=== PATIENT | female | born 1980 ===

== ENCOUNTER 2020-05-17 15:20 | Outpatient (REF) | payer OTHER, SELFPAY | END 2020-05-17 15:21 | disposition home or self-care (01) | LOC: HO.LNP 15:20 | PROVIDERS: Visit Provider Internal Medicine | DX: H60.91 Unspecified otitis externa, right ear (principal) | CPT/HCPCS: 87071; 87107; 87205 ==

== ENCOUNTER 2020-06-17 07:54 | Outpatient (REF) | payer OTHER, SELFPAY | END 2020-06-17 07:55 | disposition home or self-care (01) | LOC: HO.LAB 07:54 | PROVIDERS: PCP Internal Medicine; Visit Provider Internal Medicine | DX: Z20.828 Contact with and (suspected) exposure to other viral communicable diseases (principal) | CPT/HCPCS: C9803; U0003 ==

== ENCOUNTER 2021-07-07 10:23 | Outpatient (REF) | payer OTHER, SELFPAY | END 2021-07-07 10:24 | disposition home or self-care (01) | LOC: HO.HMGCLDS 10:23 | PROVIDERS: Visit Provider Internal Medicine | DX: Z20.822 Contact with and (suspected) exposure to COVID-19 (principal) | CPT/HCPCS: C9803; U0003; U0005 ==

== ENCOUNTER 2023-03-04 10:09 | Outpatient (AMB) | payer OTHER, SELFPAY ==
[2023-03-04 10:20] VITALS: BP 134/72; PULSE 80; O2SAT 98; BMI 45.0
--- NOTE | 2023-03-04 10:20 | MHC.PC.OV ---
Vital Signs 03/04/23 10:20 Height 5 ft 3 in Weight 254 lb BMI 45.0 BP 134/72 Blood Pressure Location Lt brachial Position Sitting Pulse 80 Pulse Source Pulse Oximeter Pulse Oximetry (%) 98 Oxygen Delivery Method Room Air Intake Visit Reasons: Right Knee Pain Allergies No Known Allergies [No Known Allergies*] Allergy (Verified 03/04/23 10:21) Medication List - Last Reconciled 03/04/23 by Iesha East MD albuterol sulfate 90 mcg/actuation 2 puffs inhalation Q6H PRN cetirizine (Zyrtec) 10 mg PO DAILY PRN fluticasone propionate 110 mcg/actuation 2 puffs inhalation BID ibuprofen 800 mg PO Q8H PRN 30 days [id number]-wun-iron fm-FA-vitK 18 mg-400 mcg- 25 mcg (One-A-Day Women's Complete(with vit K)) tabs PO Tobacco use date assessed: 03/04/23 Dental Screening Dental Screen Date: 03/04/23 Did you have a dental visit in the last 12 months?: Yes Did you have a dental problem in the last 6 months where you did not have access to dental care?: No Was dental information given to patient?: Patient has dentist HPI Right Knee Pain HPI Details 42-year-old Obese female with asthma and GERD last seen in September 2021 for physical exam. Patient was advised to follow-up today. Mammogram due. Patient complains of right knee pain denies any fall or trauma but when she is walking it causes pain on the lateral superior leg is but denies any swelling or redness patient states occasionally giving way. [facility] Medical History (Updated 03/04/23 @ 10:58 by Iesha East MD) Asthma GERD (gastroesophageal reflux disease) Hemorrhoids History of pilonidal cyst Surgical History (Updated 08/31/21 @ 14:54 by Iesha East MD) H/O tubal ligation History of excision of pilonidal cyst History of hernia surgery Previous section S/P dilatation and curettage Family History (Updated 03/04/23 @ 10:22 by Narcisa Mariano CMA) Father Chronic mental illness Mother Chronic mental illness Maternal Grandfather Renal cell cancer Social History (Updated 09/03/21 @ 13:34 by Iesha East MD) Housing: House Alcohol intake: never Patient Tobacco Use Status: Never used Tobacco e-Cigarette/Vaping Use: Never Used Second Hand Smoke Exposure: No Current occupational status: employed Cognitive needs: No Hearing needs: No Vision needs: No Questionnaire PHQ-9 Over the last 2 weeks, how often have you been bothered by any of the following problems? 1. Little interest or pleasure in doing things: not at all 2. Feeling down, depressed, or hopeless: not at all 3. Trouble falling or staying asleep, or sleeping too much: not at all 4. Feeling tired or having little energy: not at all 5. Poor appetite or overeating: not at all 6. Feeling bad about yourself - or that you are a failure or have let yourself or your family down: not at all 7. Trouble concentrating on things, such as reading the newspaper or watching television: not at all 8. Moving or speaking so slowly that other people could have noticed. Or the opposite - being so fidgety or restless that you have been moving around a lot more than usual: not at all 9. Thoughts that you would be better off or of hurting yourself in some way: not at all Total score: 0 Depression Screening Interpretation: Negative Source: Developed by Drs. Monster Barriga, Brenna Diaz, Milton Hopkins and colleagues, with an educational zi from [employer]. Thrive Questionnaire Date Thrive assessed: 03/04/23 I am a: Patient What is your living situation today?: I have a steady place to live Within the past 12 months, did the food you bought not last and you didn't have the money to get more?: Never true Within the past 12 months, did you worry whether your food would run out before you got money to buy more?: Never true Do you have trouble paying for medicines?: No Do you have trouble getting transportation to medical appointments?: No Do you have trouble paying your heating and electricity bill?: No Do you have trouble taking care of your child, family member or friend?: No Do you have trouble with day-to-day activities such as bathing, preparing meals, shopping, managing finances, etc.?: No Are you currently unemployed and looking for a job?: No Are you interested in more education?: No Currently or been in a relationship where the following occur: no concerns reported AUDIT C Alcohol Use Questionnaire (AUDIT-C) 1. How often do you have a drink containing alcohol?: Monthly or less 2. How many drinks containing alcohol do you have on a typical day when you are drinking?: 1 or 2 3. How often do you have six or more drinks on one occasion?: Never Total Score: 1 ANIKA-7 AMB Questionnaire ANIKA-7 Date ANIKA - 7 assessed: 03/04/23 Feeling nervous, anxious, or on edge: 0 = Not at all Not being able to stop or control worryin = Not at all Worrying too much about different things: 0 = Not at all Trouble relaxin = Not at all Being so restless that it is hard to sit still: 0 = Not at all Becoming easily annoyed or irritable: 0 = Not at all Feeling afraid as if something awful might happen: 0 = Not at all Total ANIKA-7 score (0-4 normal; 5-9 mild; 10-14 moderate; 15-21 severe): 0 Source: Developed by Drs. Monster Barriga, Brenna Diaz, Milton Hopkins and colleagues, with an educational zi from [employer]. Physical exam (Primary Care) Vital Signs: Last Vital Signs Pulse 80 03/04/23 10:20 BP 134/72 03/04/23 10:20 Pulse Ox 98 03/04/23 10:20 Oxygen Delivery Method Room Air 03/04/23 10:20 Care Plan Goal for BP management: Right Knee exam no anterior knee pain mild tenderness on right lateral no warmth mild tenderness on the medial area also no pains on the posterior knee BMI result Body Mass Index 45.0 Tobacco/Smoking Status: Tobacco use Status Tobacco use date assessed 03/04/23 03/04/23 10:22 Patient Tobacco Use Status Never used Tobacco 03/04/23 10:22 e-Cigarette/Vaping Use Never Used 03/04/23 10:22 PHQ-9: PHQ-9 Score PHQ-9: Total score 0 03/04/23 10:40 Depression Screening Interpretation: Negative Thrive Assessment: Date of Thrive Assessment Date Thrive assessed 03/04/23 03/04/23 10:22 Currently or been in a relationship where the following occur: no concerns reported Const General: alert; No acute distress Eyes Conjunctivae: conjunctivae normal Resp Auscultation: clear to auscultation bilaterally Cardio Rate: regular rate Rhythm: regular rhythm GI Inspection: Yes normal to inspection Extrem General: Yes normal to inspection and No edema Assessment and Plan Assessment & Plan (1) Obesity: Code(s): E66.9 - Obesity, unspecified Plan: Diet and exercise (2) GERD (gastroesophageal reflux disease): Code(s): K21.9 - Gastro-esophageal reflux disease without esophagitis Plan: Avoid the foods that causes that usually spicy foods, tomato products, juices, coffee, soda and foods that your sensitive to. After eating do not lie down, allow 3-4 hours before in lie down. And keep the head of bed above 30 degrees to avoid the acid from going up. (3) Asthma: Code(s): J45.909 - Unspecified asthma, uncomplicated Plan: Continue with the inhaler, montelukast and Flovent (4) Breast cancer screening by mammogram: Code(s): Z12.31 - Encounter for screening mammogram for malignant neoplasm of breast (5) Knee pain, right: Code(s): M25.561 - Pain in right knee Orders: Orders MM tomosynthesis screening BI Today Z12.31 - Encounter for screening mammogram for malignant neoplasm of breast XR knee standing BI Today M25.561 - Pain in right knee Complete Blood Count Auto Diff Today K21.9 - Gastro-esophageal reflux disease without esophagitis Comprehensive Met. Panel Today K21.9 - Gastro-esophageal reflux disease without esophagitis Free T4 (Free Thyroxine) Today K21.9 - Gastro-esophageal reflux disease without esophagitis Thyroid Stimulating Hormone Today K21.9 - Gastro-esophageal reflux disease without esophagitis Lipid Panel Today E78.00 - Pure hypercholesterolemia, unspecified, K21.9 - Gastro-esophageal reflux disease without esophagitis Vitamin B12 and Folate Today K21.9 - Gastro-esophageal reflux disease without esophagitis Vitamin D 25-OH Total Today K21.9 - Gastro-esophageal reflux disease without esophagitis Medications: New diclofenac sodium 1% (Arthritis Pain (diclofenac)) apply to single knee, ankle, foot; for foot includes sole/toes/top of foot 4 grams topical QID 100 grams 3RF M25.561 - Pain in right knee Discontinued montelukast Discontinued Reason: Change Referral Type 10 mg PO BEDTIME 30 days 30 tabs 5RF J45.909 - Unspecified asthma, uncomplicated Coding Level of Care Code Est Pt Level 4 (78227) Diagnoses Obesity E66.9 GERD (gastroesophageal reflux disease) K21.9 Asthma J45.909 Breast cancer screening by mammogram Z12.31 Knee pain, right M25.561
== END 2023-03-04 11:05 | disposition home or self-care (01) ==
PROVIDERS: PCP Internal Medicine; Visit Provider Internal Medicine
DX: K21.9 Gastro-esophageal reflux disease without esophagitis (principal); J45.909 Unspecified asthma, uncomplicated; E66.9 Obesity, unspecified; Z68.42 Body mass index [BMI] 45.0-49.9, adult; M25.561 Pain in right knee
CPT/HCPCS: 99214

== ENCOUNTER 2023-03-04 11:09 | Outpatient (REF) | payer OTHER, SELFPAY ==
--- NOTE | ~2023-03-04 | XR_ITS ---
EXAMINATION: XR KNEE AP STANDING CLINICAL INFORMATION: Pain in the right knee COMPARISON: None available. TECHNIQUE: AP bilateral standing view of the knees was obtained. FINDINGS: No evidence for acute fracture or dislocation on the given evaluation. There is mild to moderate narrowing in the medial joint space compartments. No osteochondral lesions or erosions seen. The fibular head regions are unremarkable. Minimal spurring of the right lateral femoral condyle. XR/XR knee standing BI IMPRESSION: 1. No acute process. Degenerative changes as noted above. 2. No osteochondral lesions or erosions seen.
== END 2023-03-04 11:10 | disposition home or self-care (01) ==
LOC: HO.LAB 11:09
PROVIDERS: PCP Internal Medicine; Visit Provider Internal Medicine
DX: M25.561 Pain in right knee (principal)
CPT/HCPCS: 73565

== ENCOUNTER 2023-03-28 21:13 | Emergency (ER) | payer OTHER, SELFPAY ==
--- NOTE | 2023-03-28 | ECG_ITS ---
Test Reason : CP Blood Pressure : / mmHG Vent. Rate : 090 BPM Atrial Rate : 090 BPM P-R Int : 168 ms QRS Dur : 078 ms QT Int : 362 ms P-R-T Axes : 041 044 007 degrees QTc Int : 442 ms Normal sinus rhythm Normal ECG No previous ECGs available Referred By: Generic ED Physician Electronically Signed By:SABINE PATRICK
[2023-03-28 21:37] VITALS: BP 115/67; PULSE 77; RESP 16; TEMP 36.6; O2SAT 100; BMI 44.5
[2023-03-28 22:40] LABS: MANUAL DIFF FLAG NO
[2023-03-28 22:43] LABS: Basophils Percent Auto 0.2 % (0-2); Eosinophils Absolute Auto 0.2 X10*3/uL (0.0-0.4); Eosinophils Percent Auto 1.4 % (0-4); Hematocrit 38.9 % (37.0-47.0); Hemoglobin 12.4 g/dl (12.0-16.0); Imm Gran Abs Auto 0.03 X10*3/uL (0.00-0.03); Imm Gran Pct Auto 0.2 % (0.0-0.4); Lymphocytes Absolute Auto 1.8 X10*3/uL (1.2-4.9); Lymphocytes Percent Auto 14.4 % (20-40); Mean Corpuscular HGB Conc 31.9 g/dl (31.0-35.0); Mean Corpuscular Volume 84.7 fL (80.0-98.0); Mean Platelet Volume 9.5 fL (9.4-12.3); Monocytes Absolute Auto 0.8 X10*3/uL (0.1-1.2); Monocytes Percent Auto 6.3 % (2-11); Neutrophils Absolute Auto 9.4 x10*3/uL (2.0-8.3); Neutrophils Percent Auto 77.5 % (45-73); Platelet Count 361 X10*3/uL (160-400); Red Blood Count 4.59 X10*6/uL (4.20-5.50); Red Cell Distribution Width 13.3 % (11.0-16.0); White Blood Count 12.1 X10*3/uL (4.8-10.8)
[2023-03-28 22:56] LABS: Alanine Aminotransferase 14 U/L (0-31); Alkaline Phosphatase 88 U/L (39-117); Anion Gap 17 (12-20); Aspartate Amino Transferase 15 U/L (5-31); Bilirubin Total 0.3 mg/dL (0.0-1.0); Blood Urea Nitrogen 17 mg/dL (9-16); Carbon Dioxide 22 mmol/L (22-29); Chloride 104 mmol/L (96-108); Creatinine Clr Calc Pharmacy 101.4; Estimated Glomerular Filt Rate > 60; Glucose Random 132 mg/dL (60-115); Potassium 3.7 mmol/L (3.3-5.1); Sodium 139 mmol/L (135-145); Total Protein 7.6 g/dL (6.5-8.0)
[2023-03-28 23:05] LABS: Troponin-I High Sensitivity < 2.7 ng/L (<3.5-17.0)
--- NOTE | 2023-03-28 23:06 | ED_ITS ---
HPI - General Adult General Chief complaint: General Medical Stated complaint: Abd pain Time Seen by Provider: 03/28/23 23:05 Source: patient, RN notes reviewed and old records reviewed Mode of arrival: EMS Limitations: no limitations History of Present Illness HPI narrative: 42-year-old female with past medical history significant for obesity, GERD, asthma presents for evaluation of abdominal pain. Patient reports that she side abdominal pain about 45 minutes prior to arrival She reports that she had dinner 1-2 hours prior to the onset of her symptoms Since developed burning upper abdominal pain with associated nausea Denies any fevers, chills Patient reports a history of a but no other abdominal surgeries Currently she reports her symptoms have improved since she call 911. Related Data Home Medications Medication Instructions Recorded Confirmed cetirizine 10 mg tablet (Zyrtec) 10 mg PO DAILY PRN 09/03/21 03/04/23 fkkkcrnc-bcgucmr-icah-iron 18 tab PO 09/03/21 03/04/23 mg-FA 400 mcg-vit K 25 mcg tablet (One-A-Day Women's Complete(with vit K)) Previous Rx's Medication Instructions Recorded fluticasone propionate 110 2 puff inhalation BID #12 grams 09/03/21 mcg/actuation HFA aerosol inhaler diclofenac sodium 1 % topical gel 4 g topical QID #100 grams 03/04/23 (Arthritis Pain (diclofenac)) ibuprofen 800 mg tablet 800 mg PO Q8H PRN pain 30 days #60 03/19/23 tabs albuterol sulfate 90 mcg/actuation 2 puff inhalation Q6H PRN 03/22/23 aerosol inhaler shortness of breath or wheezing #8.5 grams omeprazole 20 mg capsule,delayed 20 mg PO DAILY #14 caps 03/28/23 release ondansetron 4 mg disintegrating 4 mg PO Q8H PRN nausea and 03/28/23 tablet vomiting #20 tabs Allergies Allergy/AdvReac Type Severity Reaction Status Date / Time No Known Allergies Allergy Verified 03/04/23 10:21 [No Known Allergies*] Review of Systems 2 Constitutional: Constitutional: Denies chills, Denies fatigue and Denies fever(s) Eyes: Eyes: Denies blurry vision Cardiovascular: Cardiovascular: Denies chest pain and Denies dyspnea Respiratory: Respiratory: Denies cough and Denies dyspnea Gastrointestinal: Gastrointestinal: Reports abdominal pain, Denies nausea and Reports vomiting Genitourinary: Genitourinary: Denies difficulty voiding Musculoskeletal: Musculoskeletal: Denies back pain Integumentary/Breasts: Skin/Breast: Denies rash Endocrine: Endocrine: Denies fatigue PMFSH Past Medical History Medical History (Updated 03/28/23 @ 23:33 by Olu Lu) Hemorrhoids History of pilonidal cyst Asthma GERD (gastroesophageal reflux disease) Surgical History (Updated 08/31/21 @ 14:54 by Iesha East MD) S/P dilatation and curettage History of hernia surgery Previous section History of excision of pilonidal cyst H/O tubal ligation Family History Family History (Updated 03/04/23 @ 10:22 [address] Narcisa Mariano [facility]) Father Chronic mental illness Mother Chronic mental illness Maternal Grandfather Renal cell cancer Social History Social History (Updated 09/03/21 @ 13:34 by Iesha East MD) Housing: House Alcohol intake: never Patient Tobacco Use Status: Never used Tobacco e-Cigarette/Vaping Use: Never Used Second Hand Smoke Exposure: No Advance Directives: No Advance Directives Information Provided: No Current occupational status: employed Cognitive needs: No Hearing needs: No Vision needs: No Physical Exam ED Vital Signs: Vital Signs - 24 hr 03/28/23 21:37 Temperature 97.8 F Pulse Rate 77 Respiratory Rate 16 Blood Pressure 115/67 Pulse Oximetry 100 Oxygen Delivery Method Room Air BMI result Body Mass Index 44.5 Const General: healthy appearing, comfortable, no acute distress, alert and awake Nutritional Appearance: well nourished Orientation/consciousness: patient oriented x3 HENMT Head: Yes normocephalic and Yes atraumatic Eyes Eyelids: Yes eyelids normal Conjunctivae: conjunctivae normal Sclerae: sclerae normal Corneas: corneas normal Pupils: Equal, round and reactive pupils present EOM: EOMs intact bilaterally Neck Neck: Yes full ROM Resp Effort & Inspection: normal respiratory effort, able to speak in complete sentences and not labored Cardio Rate: regular rate Rhythm: regular rhythm GI Inspection: No distended Palpation (GI): Soft to palpation, not firm, Tenderness to palpation present (GI) in the epigastrum and in the LUQ; not in the RUQ, no guarding and not rigid Auscultation: normoactive bowel sounds Skin General skin exam: no rashes or lesions noted and elasticity normal Neuro General: patient oriented x3 Cranial nerves: Yes Equal, round and reactive pupils present and Yes Bilaterally intact EOM present Cognition (Neuro): normal cognition Extrem Other: Moving all extremities well without any obvious deformities Course Reevaluation(s) Reevaluation #1: Right daughter again the resolved after GI cocktail. This is also somewhat diagnostic as it likely means they recall is even less likely. This was discussed with the patient. Will discharge her with Zotalha and Prinanisec as well as GI referral. She was given return precautions Time: 23:55 Medications Administered Discontinued Medications Generic Name Dose Route Start Last Admin Trade Name Freq PRN Reason Stop Dose Admin Al Hydroxide/Mg Hydroxide 30 ml 03/28/23 23:16 03/28/23 23:36 Magnesium Hydrox/Alum Hydrox 30 Ml Oral.Susp PO 03/28/23 23:17 30 ml ONCE ONE Administration Lidocaine HCl 15 ml 03/28/23 23:16 03/28/23 23:36 Lidocaine Hcl Viscous 2 % 15 Ml Solution MUCOUS MEM 03/28/23 23:17 15 ml ONCE ONE Administration Ondansetron HCl 4 mg 03/28/23 23:16 03/28/23 23:36 Ondansetron Odt 4 Mg Tab.Rapdis TRANSLINGU 03/28/23 23:17 4 mg ONCE ONE Administration Medical Decision Making Medical Decision Making [facility] Narrative: 42-year-old female presents for evaluation of abdominal pain. Her symptoms started 1-2 hours after eating is mostly epigastric and left upper quadrant. She is morbidly obese that somewhat limits exam however she has no right upper quadrant tenderness. Patient's labs are significant for a mild leukocytosis to 12.1 K. no electrolyte abnormalities. Normal creatinine. Normal LFTs. Given the patient is mostly epigastric and left upper quadrant, GERD/gastroenteritis is more likely than a biliary disease. She has no transaminitis or elevated bilirubin Lab Data 03/28/23 22:36 03/28/23 22:36 Labs: Lab Results 03/28/23 Range/Units 22:36 WBC 12.1 H (4.8-10.8) X10*3/uL RBC 4.59 (4.20-5.50) X10*6/uL Hgb 12.4 (12.0-16.0) g/dl Hct 38.9 (37.0-47.0) % MCV 84.7 (80.0-98.0) fL MCH 27.0 (27.0-33.0) pg MCHC 31.9 (31.0-35.0) g/dl RDW 13.3 (11.0-16.0) % Plt Count 361 (160-400) X10*3/uL MPV 9.5 (9.4-12.3) fL Immature Gran % (Auto) 0.2 (0.0-0.4) % Neut % (Auto) 77.5 H (45-73) % Lymph % (Auto) 14.4 L (20-40) % [place] % (Auto) 6.3 (2-11) % Eos % (Auto) 1.4 (0-4) % Baso % (Auto) 0.2 (0-2) % Lymph # (Auto) 1.8 (1.2-4.9) X10*3/uL [place] # (Auto) 0.8 (0.1-1.2) X10*3/uL Eos # (Auto) 0.2 (0.0-0.4) X10*3/uL Baso # (Auto) 0.0 (0.0-0.2) X10*3/uL Abs Immat Gran (auto) 0.03 (0.00-0.03) X10*3/uL Absolute Neuts (auto) 9.4 H (2.0-8.3) x10*3/uL Absolute Nucleated RBC 0.000 (0.0-0.012) X10*3/uL Nucleated RBC % (auto) 0.0 (0.0-0.2) /100WBC Sodium 139 (135-145) mmol/L Potassium 3.7 (3.3-5.1) mmol/L Chloride 104 (96-108) mmol/L Carbon Dioxide 22 (22-29) mmol/L Anion Gap 17 (12-20) BUN 17 H (9-16) mg/dL Creatinine 0.86 (0.5-1.4) mg/dL Estim Creat Clear Calc 101.4 Estimated GFR > 60 Random Glucose 132 H (60-115) mg/dL Calcium 9.0 (8.4-10.2) mg/dL Total Bilirubin 0.3 (0.0-1.0) mg/dL AST 15 (5-31) U/L ALT 14 (0-31) U/L Alkaline Phosphatase 88 (39-117) U/L Troponin I High Sens < 2.7 (<3.5-17.0) ng/L Total Protein 7.6 (6.5-8.0) g/dL Albumin 4.0 (3.5-5.0) g/dL Discharge Plan Discharge Clinical Impression: Abdominal pain Patient Disposition: Home, Self-Care Instructions: Gastroesophageal Reflux Disease (ED) Additional Instructions: Your blood work was reassuring. Your symptoms were likely related to gastritis or severe heartburn Take Prilosec daily for the next 2 weeks Take Zofran for nausea/vomiting Avoid spicy, greasy foods Follow-up with GI at the number provided Prescriptions: New ondansetron 4 mg tablet,disintegrating 4 mg PO Q8H PRN (Reason: nausea and vomiting) Qty: 20 0RF omeprazole 20 mg capsule,delayed release(DR/EC) 20 mg PO DAILY Qty: 14 0RF No Action ibuprofen 800 mg tablet 800 mg PO Q8H PRN (Reason: pain) 30 Days Qty: 60 0RF albuterol sulfate 90 mcg/actuation HFA aerosol inhaler 2 puff inhalation Q6H PRN (Reason: shortness of breath or wheezing) Qty: 8.5 3RF cetirizine [Zyrtec] 10 mg tablet 10 mg PO DAILY PRN fluticasone propionate 110 mcg/actuation HFA aerosol inhaler 2 puff inhalation BID Qty: 12 11RF One-A-Day Women's Complete(vK) 18 mg-400 mcg- 25 mcg tablet PO diclofenac sodium [Arthritis Pain (diclofenac)] 1 % gel 4 g topical QID Qty: 100 3RF Rx Instructions: apply to single knee, ankle, foot; for foot includes sole/toes/top of foot Referrals: Bashir Jurado MD [Physician] - (GERD, ? endoscopy)
[2023-03-28] MEDS: Ondansetron ODT 4 MG TAB.RAPDIS TRANSLINGU (23:36)
[2023-03-28] MEDS: Lidocaine HCl Viscous 2 % 15 ML SOLUTION MUCOUS MEM (23:36)
[2023-03-28] MEDS: Magnesium Hydrox/Alum Hydrox 30 ML ORAL.SUSP PO (23:36)
[2023-03-28 23:57] VITALS: BP 113/63; PULSE 85; RESP 16; TEMP 36.7; O2SAT 98
== END 2023-03-29 00:11 | disposition home or self-care (01) ==
PROVIDERS: Emergency Provider Emergency Medicine; PCP Internal Medicine
DX: R10.9 Unspecified abdominal pain (principal); R07.89 Other chest pain; Z79.899 Other long term (current) drug therapy
CPT/HCPCS: 36415; 80053; 84484; 85025; 93005; 99284

== ENCOUNTER 2023-04-02 16:26 | Emergency (ER) | payer OTHER, SELFPAY ==
--- NOTE | ~2023-04-02 | XR_ITS ---
EXAMINATION: XR KNEE, RIGHT CLINICAL INFORMATION: Pain, trauma. COMPARISON: Radiograph right knee 03/04/2023. TECHNIQUE: Four views of the right knee. FINDINGS: No acute fractures or subluxation. Mild joint space narrowing of the medial and patellofemoral compartments. Small osteophyte along the upper pole of the patella. Bony productive changes along the posterior surface of the tibial plateau. No osseous erosions. No abnormal soft tissue calcifications. Trace joint effusion. XR/XR knee RT 4V IMPRESSION: 1. No acute fractures or subluxation. 2. Mild degenerative osteoarthritis of the medial and patellofemoral compartments. 3. Trace joint effusion.
[2023-04-02 16:36] VITALS: BP 134/76; PULSE 75; RESP 16; TEMP 36.2; O2SAT 98; BMI 44.4
--- NOTE | 2023-04-02 16:36 | ED_ITS ---
HPI - Extremity Injury (Lower) General Chief Complaint: Extremity Injury, Lower Stated Complaint: R knee pain/[place] pop Time Seen by Provider: 04/02/23 17:33 Source: patient Mode of arrival: wheelchair Limitations: no limitations History of Present Illness HPI Narrative: Patient is a 43 female presents emergency for evaluation of knee pain; has known R knee tendonitis and osteoarthritis. Today attempted to grab her dog on the leash, felt a sudden pop to the right knee, worse posteriorly and radiates to ankle. 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 Able to weight bear but very painful. Denies numbness tingling or cold sensation to the lower extremity. Related Data Home Medications Medication Instructions Recorded Confirmed cetirizine 10 mg tablet (Zyrtec) 10 mg PO DAILY PRN 09/03/21 03/04/23 lhlqddvt-nwlnwhy-nouc-iron 18 tab PO 09/03/21 03/04/23 mg-FA 400 mcg-vit K 25 mcg tablet (One-A-Day Women's Complete(with vit K)) Previous Rx's Medication Instructions Recorded fluticasone propionate 110 2 puff inhalation BID #12 grams 09/03/21 mcg/actuation HFA aerosol inhaler diclofenac sodium 1 % topical gel 4 g topical QID #100 grams 03/04/23 (Arthritis Pain (diclofenac)) ibuprofen 800 mg tablet 800 mg PO Q8H PRN pain 30 days #60 03/19/23 tabs albuterol sulfate 90 mcg/actuation 2 puff inhalation Q6H PRN 03/22/23 aerosol inhaler shortness of breath or wheezing #8.5 grams omeprazole 20 mg capsule,delayed 20 mg PO DAILY #14 caps 03/28/23 release ondansetron 4 mg disintegrating 4 mg PO Q8H PRN nausea and 03/28/23 tablet vomiting #20 tabs Allergies Allergy/AdvReac Type Severity Reaction Status Date / Time No Known Allergies Allergy Verified 04/02/23 16:36 [No Known Allergies*] Review of Systems Review of Systems: Yes all other systems are reviewed and are negative PMFSH Past Medical History Attestation statement: The following information was validated with the patient. Source: old records reviewed Medical History Hemorrhoids History of pilonidal cyst Asthma GERD (gastroesophageal reflux disease) Surgical History S/P dilatation and curettage History of hernia surgery Previous section History of excision of pilonidal cyst H/O tubal ligation Family History Family History (Updated 03/04/23 @ 10:22 by Narcisa Mariano CMA) Father Chronic mental illness Mother Chronic mental illness Maternal Grandfather Renal cell cancer Social History Social History (Updated 09/03/21 @ 13:34 by Iesha East MD) Housing: House Alcohol intake: never Patient Tobacco Use Status: Never used Tobacco e-Cigarette/Vaping Use: Never Used Second Hand Smoke Exposure: No Advance Directives: Yes Advance Directives Information Provided: Yes Advance Directives on File: No Current occupational status: employed Cognitive needs: No Hearing needs: No Vision needs: No Physical Exam Vital Signs: Vital Signs: Last Vital Signs Temp 97.2 F 04/02/23 16:36 Pulse 75 04/02/23 16:36 Resp 16 04/02/23 16:36 BP 134/76 04/02/23 16:36 Pulse Ox 98 04/02/23 16:36 O2 Del Method Room Air 04/02/23 16:36 BMI result Body Mass Index 44.4 Appearance: Alert.?Oriented to person, place and time. No acute distress.?Normal affect. Neck: Normal inspection.? Neck supple.?? CVS: Heart sounds normal. Normal heart rate and rhythm.? Pulses normal.?? Respiratory: No respiratory distress.? Lung sounds clear to auscultation bilaterally?? Abdomen: Soft and non-tender. Skin: Skin warm and dry.? Normal skin color.? Extremities: No lower extremity edema.? No calf ttp?no effusion. No laxity upon examination, anterior/posterior drawer test negative. No point tenderness. 2+ DP/PT pulse bilaterally Neuro: Moves all extremities spontaneously. Sensation intact bilaterally. Ambulates with antalgic gait. Medical Decision Making Medical Decision Making MDM Narrative: Patient is a 43-year-old female with past medical history of obesity, asthma, GERD, osteoarthritis presenting to emergency department for acute on chronic right knee pain after an injury today. The extremities neurovascularly intact distally, there is no obvious deformity or effusion. XR imaging was obtained which does not reveal evidence of a fracture dislocation there are supportive evidence of degenerative arthritic type changes which patient was already aware of. At this time suspect acute pain secondary to sprain in addition to arthritis. Discussed with patient cannot completely exclude ligamentous injury as this is not very well appreciated on XR imaging, no indication for emergent MRI at this time. She is pending outpatient evaluation with Orthopedics. Advised rest, ice, continued usage of knee brace, elevation, acetaminophen/ibuprofen for pain. Reviewed worrisome signs and symptoms that w ould warrant re-evaluation emergency department. All questions answered. Stable for discharge. Differential Diagnosis Differential Diagnoses: The differential diagnosis associated with the presentation includes (As noted above) Independent Interpretation I performed an independent interpretation of an: Plain X-Ray (Have personally interpreted XR imaging of the knee and agree with radiologist impression, no evidence of fracture) Radiology Impression Discussion of test interpretation with radiology: I have reviewed the radiologist's reading. Radiologist Impression: XR/XR knee RT 4V IMPRESSION: 1. No acute fractures or subluxation. 2. Mild degenerative osteoarthritis of the medial and patellofemoral compartments. 3. Trace joint effusion. Independent Historian Clinical information obtained from an independent historian. History obtained from or confirmed by: Spouse (Present who confirms history) External Record Review External record reviewed: Outpatient record Tests considered The following testing was considered but not selected: As noted above, MRI imaging deferred. Prescription Management I considered prescription management with: Pain Medication (Acetaminophen/ibuprofen) Discharge Plan Discharge Clinical Impression: Knee sprain, Osteoarthritis Patient Disposition: Home, Self-Care Instructions: Knee Sprain (ED), Crutch Instructions (ED), Osteoarthritis (ED) Additional Instructions: weight bearing as tolerated You can take ibuprofen 200 mg, 3 tablets (600mg) every 6-8 hours as needed for pain, in addition to Tylenol 500 mg, 2 tablets (1,000mg) every 4-6 hours as needed for pain, but not to exceed 3 doses daily (3,000mg).? Contact your primary care provider to arrange for a follow-up visit. I provided contact information for the Orthopedic Department, please call their office on Wednesday to arrange for further follow-up. Prescriptions: No Action ibuprofen 800 mg tablet 800 mg PO Q8H PRN (Reason: pain) 30 Days Qty: 60 0RF albuterol sulfate 90 mcg/actuation HFA aerosol inhaler 2 puff inhalation Q6H PRN (Reason: shortness of breath or wheezing) Qty: 8.5 3RF ondansetron 4 mg tablet,disintegrating 4 mg PO Q8H PRN (Reason: nausea and vomiting) Qty: 20 0RF omeprazole 20 mg capsule,delayed release(DR/EC) 20 mg PO DAILY Qty: 14 0RF cetirizine [Zyrtec] 10 mg tablet 10 mg PO DAILY PRN fluticasone propionate 110 mcg/actuation HFA aerosol inhaler 2 puff inhalation BID Qty: 12 11RF One-A-Day Women's Complete(vK) 18 mg-400 mcg- 25 mcg tablet PO diclofenac sodium [Arthritis Pain (diclofenac)] 1 % gel 4 g topical QID Qty: 100 3RF Rx Instructions: apply to single knee, ankle, foot; for foot includes sole/toes/top of foot Referrals: Colleen Moreno PA-C [Physician Supervisor [employer] Processing] - Po,Iesha Landon MD [Primary Care Provider] -
== END 2023-04-02 17:50 | disposition home or self-care (01) ==
PROVIDERS: Emergency Provider Emergency Medicine; PCP Internal Medicine
DX: M17.11 Unilateral primary osteoarthritis, right knee (principal); Z79.899 Other long term (current) drug therapy
CPT/HCPCS: 73564; 99282; 99283

== ENCOUNTER 2023-04-07 08:44 | Outpatient (AMB) | payer OTHER, SELFPAY ==
[2023-04-07 08:55] VITALS: BP 130/90; PULSE 81; O2SAT 98; BMI 45.7
--- NOTE | 2023-04-07 08:55 | MHC.PC.OV ---
Vital Signs 04/07/23 08:55 04/07/23 09:22 Height 5 ft 3 in Weight 258 lb 2 oz BMI 45.7 BP 130/90 H 132/80 Blood Pressure Location Lt brachial Lt brachial Position Sitting Sitting Pulse 81 Pulse Source Pulse Oximeter Pulse Oximetry (%) 98 Oxygen Delivery Method Room Air Intake Visit Reasons: ED Follow up Intake Note: Patient is here to follow-up after [place] [facility] [place] 04/[place]23 Pharmacy Clinical Coordinator Required: No Director Of District Office: Not Required per policy Accompanied by: Self / Same As Patient Allergies No Known Allergies [No Known Allergies*] Allergy (Verified 04/07/23 08:55) Tobacco use date assessed: 04/07/23 Dental Screening Dental Screen Date: 04/07/23 Did you have a dental visit in the last 12 months?: Yes Did you have a dental problem in the last 6 months where you did not have access to dental care?: No Was dental information given to patient?: Patient has dentist HPI ED Follow up HPI Details 43-year-old morbidly obese female with GERD asthma and right knee pain last seen in February 2023. ER visit 04/02/2023 for right knee pain patient states attempted to grab her dog felt a sudden pop on the right knee patient treated conservatively for sprain with Motrin. Before this patient was also in the ER for abdominal pain diagnosis of GERD symptoms.. Early March has had an x-ray of showing:No evidence for acute fracture or dislocation on the given evaluation. There is mild to moderate narrowing in the medial joint space compartments. No osteochondral lesions or erosions seen. The fibular head regions are unremarkable. Minimal spurring of the right lateral femoral condyle. Is presently limping with right knee brace. Declined physical therapy and ortho referral. Discussed that MRI is not advisable right now as the events just happened and there is swelling in the knee. Anti-inflammatory advised to take but with food. [facility] Medical History Hemorrhoids History of pilonidal cyst Asthma GERD (gastroesophageal reflux disease) Surgical History S/P dilatation and curettage History of hernia surgery Previous section History of excision of pilonidal cyst H/O tubal ligation Family History Father Chronic mental illness Mother Chronic mental illness Maternal Grandfather Renal cell cancer Social History Housing: House Alcohol intake: never Patient Tobacco Use Status: Never used Tobacco e-Cigarette/Vaping Use: Never Used Second Hand Smoke Exposure: No Current occupational status: employed Cognitive needs: No Hearing needs: No Vision needs: No Questionnaire Thrive Questionnaire Date Thrive assessed: 03/04/23 ANIKA-7 AMB Questionnaire ANIKA-7 Date ANIKA - 7 assessed: 03/04/23 Source: Developed by Drs. Monster Barriga, Brenna Diaz, Milton Hopkins and colleagues, with an educational zi from [employer]. Physical exam (Primary Care) Vital Signs: Last Vital Signs Pulse 81 04/07/23 08:55 BP 130/90 H 04/07/23 08:55 Pulse Ox 98 04/07/23 08:55 Oxygen Delivery Method Room Air 04/07/23 08:55 BMI result Body Mass Index 45.7 Tobacco/Smoking Status: Tobacco use Status Tobacco use date assessed 04/07/23 04/07/23 09:00 Patient Tobacco Use Status Never used Tobacco 04/07/23 09:00 e-Cigarette/Vaping Use Never Used 04/07/23 09:00 Thrive Assessment: Date of Thrive Assessment Date Thrive assessed 03/04/23 04/07/23 09:00 Const General: alert; No acute distress Eyes Conjunctivae: conjunctivae normal Resp Auscultation: clear to auscultation bilaterally Cardio Rate: regular rate Rhythm: regular rhythm GI Inspection: Yes normal to inspection Office Procedures Flu Questionnaire Does the patient have a severe egg allergy?: No Does the patient have severe life threatening allergies?: No Does the patient have a fever or illness today?: No Has the patient ever had Guillain-Lathrop Syndrome?: No Has the patient ever had any past reaction to a flu shot?: No Immunizations flu vacc [id number] 6mos up(PF) 60 mcg(15 mcgx4)/0.5 mL IM syringe Performing Provider: Iesha East MD [place] [facility] Documented (not given) by: LAURA Dailey on 04/07/23 09:00 Reason Not Given: Patient Refused Assessment and Plan Assessment & Plan (1) Knee pain, right: Code(s): M25.561 - Pain in right knee Plan: referral to ortho . NSAID (take with food) to help decrease swelling (2) Obesity: Code(s): E66.9 - Obesity, unspecified Plan: Discussed about options on weight loss and given information about medications to help weight loss. (3) Colon cancer screening: Code(s): Z12.11 - Encounter for screening for malignant neoplasm of colon Plan: referral to GI (4) GERD (gastroesophageal reflux disease): Code(s): K21.9 - Gastro-esophageal reflux disease without esophagitis Plan: omeprazole Avoid the foods that causes that usually spicy foods, tomato products, juices, coffee, soda and foods that your sensitive to. After eating do not lie down, allow 3-4 hours before in lie down. And keep the head of bed above 30 degrees to avoid the acid from going up. Orders: Orders [place] upper GI series Today K21.9 - Gastro-esophageal reflux disease without esophagitis, R13.10 - Dysphagia, unspecified Influenza [id number] Immunization Today Z23 - Encounter for immunization Referrals Orthopedics Referral M25.561 - Pain in right knee Gastroenterology Referral K21.9 - Gastro-esophageal reflux disease without esophagitis, Z12.11 - Encounter for screening for malignant neoplasm of colon Medications: Refilled omeprazole 20 mg PO DAILY 30 caps 0RF K21.9 - Gastro-esophageal reflux disease without esophagitis Coding Level of Care Code Est Pt Level 4 (76758) Diagnoses Knee pain, right M25.561 Obesity E66.9 Colon cancer screening Z12.11 GERD (gastroesophageal reflux disease) K21.9
[2023-04-07 09:22] VITALS: BP 132/80
== END 2023-04-07 09:32 | disposition home or self-care (01) ==
PROVIDERS: PCP Internal Medicine; Visit Provider Internal Medicine
DX: M25.561 Pain in right knee (principal); E66.9 Obesity, unspecified; Z12.11 Encounter for screening for malignant neoplasm of colon; Z68.42 Body mass index [BMI] 45.0-49.9, adult; K21.9 Gastro-esophageal reflux disease without esophagitis
CPT/HCPCS: 99214

== ENCOUNTER 2023-04-24 10:33 | Outpatient (REF) | payer OTHER, SELFPAY ==
[2023-04-24 10:48] LABS: MANUAL DIFF FLAG NO
[2023-04-24 11:01] LABS: Basophils Percent Auto 0.5 % (0-2); Eosinophils Absolute Auto 0.3 X10*3/uL (0.0-0.4); Eosinophils Percent Auto 3.4 % (0-4); Hematocrit 36.3 % (37.0-47.0); Hemoglobin 11.5 g/dl (12.0-16.0); Imm Gran Abs Auto 0.09 X10*3/uL (0.00-0.03); Lymphocytes Absolute Auto 2.1 X10*3/uL (1.2-4.9); Lymphocytes Percent Auto 24.6 % (20-40); Mean Corpuscular HGB Conc 31.7 g/dl (31.0-35.0); Mean Corpuscular Hemoglobin 27.2 pg (27.0-33.0); Mean Corpuscular Volume 85.8 fL (80.0-98.0); Mean Platelet Volume 9.7 fL (9.4-12.3); Monocytes Absolute Auto 0.6 X10*3/uL (0.1-1.2); Monocytes Percent Auto 7.4 % (2-11); Neutrophils Absolute Auto 5.4 x10*3/uL (2.0-8.3); Neutrophils Percent Auto 63.1 % (45-73); Platelet Count 362 X10*3/uL (160-400); Red Blood Count 4.23 X10*6/uL (4.20-5.50); Red Cell Distribution Width 13.4 % (11.0-16.0); White Blood Count 8.6 X10*3/uL (4.8-10.8)
[2023-04-24 12:04] LABS: Alanine Aminotransferase 14 U/L (0-31); Albumin Level 4.1 g/dL (3.5-5.0); Alkaline Phosphatase 88 U/L (39-117); Anion Gap 13 (12-20); Aspartate Amino Transferase 14 U/L (5-31); Bilirubin Total 0.3 mg/dL (0.0-1.0); Blood Urea Nitrogen 13 mg/dL (9-16); Calcium 9.2 mg/dL (8.4-10.2); Carbon Dioxide 25 mmol/L (22-29); Chloride 106 mmol/L (96-108); Cholesterol 171 mg/dL (<200); Estimated Glomerular Filt Rate > 60; Glucose Random 96 mg/dL (60-115); HDL Cholesterol 49 mg/dL (>40); LDL Cholesterol Calculated 110 mg/dL (<100); Potassium 4.1 mmol/L (3.3-5.1); Sodium 140 mmol/L (135-145); Total Protein 7.5 g/dL (6.5-8.0); Triglycerides 60 mg/dL (<150)
[2023-04-24 12:21] LABS: Free T4 (Free Thyroxine) 0.93 ng/dL (0.71-1.85); Thyroid Stimulating Hormone 1.83 uIU/mL (0.32-4.0); Vitamin D 25-OH Total 22.9 ng/mL (>30)
[2023-04-24 12:34] LABS: Folate 11.8 ng/mL (> or = 4.0); Vitamin B12 627 pg/mL (200-900)
== END 2023-04-24 10:34 | disposition home or self-care (01) ==
LOC: HO.LAB 10:33
PROVIDERS: PCP Internal Medicine; Visit Provider Internal Medicine
DX: K21.9 Gastro-esophageal reflux disease without esophagitis (principal); E78.00 Pure hypercholesterolemia, unspecified; E55.9 Vitamin D deficiency, unspecified
CPT/HCPCS: 36415; 80053; 80061; 82306; 82607; 82746; 84439; 84443; 85025

== ENCOUNTER 2023-04-29 14:48 | Outpatient (REF) | payer OTHER, SELFPAY | END 2023-04-29 14:49 | disposition home or self-care (01) | LOC: HO.MAMMO 14:48 | PROVIDERS: PCP Internal Medicine; Visit Provider Internal Medicine | DX: Z12.31 Encounter for screening mammogram for malignant neoplasm of breast (principal) | CPT/HCPCS: 77063; 77067 ==

== ENCOUNTER → 2023-04-29 15:00 | Outpatient (BNV) | payer OTHER, SELFPAY | PROVIDERS: PCP Internal Medicine; Visit Provider Radiology Diagnostic Radiology | DX: Z12.31 Encounter for screening mammogram for malignant neoplasm of breast (principal) | CPT/HCPCS: 77063; 77067 ==

== ENCOUNTER 2023-05-14 08:22 | Outpatient (REF) | payer OTHER, SELFPAY ==
--- NOTE | ~2023-05-14 | XR_ITS ---
EXAMINATION: XR KNEE, RIGHT CLINICAL INFORMATION: Pain. COMPARISON: Radiographs dated 04/02/2023. TECHNIQUE: An axial view of the right knee is submitted. FINDINGS: No fracture or joint effusion. Alignment is anatomic. The patellofemoral joint space compartment is well-maintained. There is a small peripheral osteophyte noted of the lateral articular margin of the patella. No abnormal soft tissue calcification. XR/XR knee RT 1V IMPRESSION: 1. There is mild osteoarthritic change of the left patellofemoral compartment. 2. No fracture, dislocation or joint effusion is appreciated.
== END 2023-05-14 08:23 | disposition home or self-care (01) ==
LOC: HO.HOSX 08:22
PROVIDERS: Visit Provider Physician Assistant
DX: M17.11 Unilateral primary osteoarthritis, right knee (principal); M23.91 Unspecified internal derangement of right knee; E66.01 Morbid (severe) obesity due to excess calories; Z68.42 Body mass index [BMI] 45.0-49.9, adult
CPT/HCPCS: 20610; 73560; J1040

== ENCOUNTER 2023-05-14 08:51 | Outpatient (AMB) | payer OTHER, SELFPAY ==
[2023-05-14 09:06] VITALS: BMI 45.7
--- NOTE | 2023-05-14 09:06 | MHC.OFFVIS ---
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 Patient reports attempted to grab her dog on the leash, felt a sudden pop to the right knee, worse posteriorly and radiates to ankle. She states that her pain is getting worse and at night is even more painful. Hx of 3 + months of using a brace with no relief. Hx of taking 3 + months of Tylenol/Ibuprofen with mild to no relief. Hx of using 3 + months of a diclofenac gel with relief. Pain is above the knee and the pain shoots up her leg but sometimes her pain shoots down her leg per patient. Patient reports her pain is worse when using stairs, walking and getting up from a sitting position. 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 The patient presented to the ED on 04/02/2023 status post attempting to grab her dog?s leash and felt a pop. X-rays of the right knee were obtained. While in the office today she states the pain increases at night. She claims the pain is above the knee and radiates up her leg and occasionally down the leg. She states the pain increases stairs, ambulating, and getting up from a sitting position. She reports her pain is defuse and occasionally she has pain that radiates up the thing, but stops at the hip. She also reports it radiates to the ankle. She has a history of 3+ months of bracing with no relief. She has also been taking ibuprofen/tylenol with mild to no relief. She confirms the use of diclofenac gel with relief. [facility] Medical History Hemorrhoids History of pilonidal cyst Asthma GERD (gastroesophageal reflux disease) Surgical History S/P dilatation and curettage History of hernia surgery Previous section History of excision of pilonidal cyst H/O tubal ligation Family History Father Chronic mental illness Mother Chronic mental illness Maternal Grandfather Renal cell cancer Social History Housing: House Alcohol intake: never Patient Tobacco Use Status: Never used Tobacco e-Cigarette/Vaping Use: Never Used Second Hand Smoke Exposure: No Current occupational status: employed Cognitive needs: No Hearing needs: No Vision needs: No Review of Systems Const All systems reviewed & are unremarkable except as noted in HPI and below Physical Exam Vital Signs: BMI result Body Mass Index 45.7 Const General: cooperative and no acute distress Orientation/consciousness: patient oriented x3 Resp Effort & Inspection: normal respiratory effort and able to speak in complete sentences Cardio Peripheral pulses: Peripheral pulses 2+ throughout Skin General skin exam: no rashes or lesions noted Neuro General: patient oriented x3 Extrem Other: Right knee: Normal to inspection. No ecchymosis, erythema, or joint effusion. No tenderness to palpation to the medial or lateral joint lines. Full knee extension and flexion. Crepitus felt with ROM. NVI. Office Procedures Joint Injection/Drain Joint Injection/Drain Primary Site: right knee Injected: 80 mg of, DepoMedrol, with 8 mL of (2% plain lido) and in the joint Approach Used: anterolateral Procedure: The patient tolerated the procedure well, but had some pain with the injection and there was some relief with the local anesthesia Coding 15868 - Large joint Procedure code (CPT) selection complete Results Reviewed Results Reviewed: 05/14/23 09:38 Lidocaine HCl 2 % MPF [Xylocaine 2 % MPF] 5 ml .ROUTE .STK-MED ONE methylPREDNISolone acetate [DEPO-MedroL] 80 mg .ROUTE .STK-MED ONE Assessment & Plan Assessment & Plan (1) Osteoarthritis of right knee: Code(s): M17.11 - Unilateral primary osteoarthritis, right knee Qualifiers: Osteoarthritis type: unspecified Qualified Code(s): M17.11 - Unilateral primary osteoarthritis, right knee (2) Internal derangement of right knee: Code(s): M23.91 - Unspecified internal derangement of right knee (3) Obesity: Comment: BMI: 45.7 as of 05/14/2023 Code(s): E66.9 - Obesity, unspecified Qualifiers: Body mass index: BMI 45.0-49.9 Obesity classification: adult class 3 (BMI >= 40) Obesity type: unspecified obesity type Serious obesity comorbidity presence: unspecified whether serious comorbidity present Qualified Code(s): E66.01 - Morbid (severe) obesity due to excess calories; Z68.42 - Body mass index [BMI] 45.0-49.9, adult Plan Ms. Russo is a 43-year-old female who presents in the office today for an evaluation of right knee pain. The patient presented to the ED on 04/02/2023 status post attempting to grab her dog?s leash and felt a pop. X-rays of the right knee were obtained. While in the office today she states the pain increases at night. She claims the pain is above the knee and radiates up her leg and occasionally down the leg. She states the pain increases stairs, ambulating, and getting up from a sitting position. She reports her pain is defuse and occasionally she has pain that radiates up the thing, but stops at the hip. She also reports it radiates to the ankle. She has a history of 3+ months of bracing with no relief. She has also been taking ibuprofen/tylenol with mild to no relief. She confirms the use of diclofenac gel with relief. BMI of 45.7 as of 05/14/2023. The patient was offered a cortisone injection in the right knee with 80 mg of DepoMedrol. The patient was explained the risk, benefits, and alternatives to receiving this injection. After receiving consent for the injection, the patient had the procedure done while in office today. The patient tolerated the procedure well with no complications. Follow up will be PRN, or sooner if needed. X-rays of the right knee which were obtained while in the office today and were reviewed by me, Odilia Fry PA-C, revealed no acute fracture or dislocation. X-rays of the right knee, obtained on 04/02/2023, revealed: 1. No acute fractures or subluxation. 2. Mild degenerative osteoarthritis of the medial and patellofemoral compartments. 3. Trace joint effusion. Orders: Orders XR knee RT 1V Today M25.569 - Pain in unspecified knee Patient Instructions: Scribed for Odilia Fry PA-C by Dorcas Gomez, medical insurance claims specialist, on 05/14/2023 at 8:56 am, EST. Coding Level of Care Code New Pt Level 4 (04012) Diagnoses Osteoarthritis of right knee, unspecified osteoarthritis type M17.11 Osteoarthritis type: unspecified Internal derangement of right knee M23.91 Class 3 severe obesity with body mass index (BMI) of 45.0 to 49.9 in adult, unspecified obesity type, unspecified whether serious comorbidity present E66.01; Z68.42 Body mass index: BMI 45.0-49.9 Obesity classification: adult class 3 (BMI >= 40) Obesity type: unspecified obesity type Serious obesity comorbidity presence: unspecified whether serious comorbidity present CPT Codes Coding - 27634 Large joint: 33084 - Large joint ([id number])
== END 2023-05-14 10:00 | disposition home or self-care (01) ==
PROVIDERS: PCP Internal Medicine; Visit Provider Physician Assistant
DX: M17.11 Unilateral primary osteoarthritis, right knee (principal); M23.91 Unspecified internal derangement of right knee
CPT/HCPCS: 20610; 99204

== ENCOUNTER 2023-06-04 13:40 | Outpatient (AMB) | payer OTHER, SELFPAY ==
[2023-06-04 13:46] VITALS: BP 145/70; PULSE 86; BMI 44.8
--- NOTE | 2023-06-04 13:46 | A.OFFVIS_ITS ---
Intake Vital Signs 06/04/23 13:46 Height 5 ft 3 in Weight 253 lb BMI 44.8 BP 145/70 H Blood Pressure Location Lt brachial Position Sitting Pulse 86 Intake Visit Reasons: Gerd Intake Note: Patient presents to in office visit today as a new patient for GERD. CC: Patient reports heartburn with some foods. Patient states that on 04/02/23 she went to the ER with sudden BUQ abdominal pain, epigastric pain, nausea, vomiting. Patient states she occasionally has constipation and has seen blood in the stool in the past. 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 Patient was seen back in March for upper abdominal discomfort. Patient reports to have severe abdominal pain without any nausea or vomiting. Reported to have severe abdominal bloating. Pain was not radiating anywhere. Does not know if was associated to food that she ate. Patient reports that she will get this pain sometimes 2-3 hours after meals. Patient reports that the pain is in right upper quadrant and left upper quadrant. Labs from ER reviewed and mild leukocytosis, however month later labs were completely normal. Patient was seen by PCP who will order upper GI series and patient will be going in couple weeks. Patient was placed on omeprazole. Reports that her symptoms are little better, however occasionally she will still have acid reflux PFSH Medical History Hemorrhoids History of pilonidal cyst Asthma GERD (gastroesophageal reflux disease) Surgical History S/P dilatation and curettage History of hernia surgery Previous section History of excision of pilonidal cyst H/O tubal ligation Family History Father Chronic mental illness Mother Chronic mental illness Maternal Grandfather Renal cell cancer Social History Housing: House Alcohol intake: never Patient Tobacco Use Status: Never used Tobacco e-Cigarette/Vaping Use: Never Used Second Hand Smoke Exposure: No Advance Directives: No Current occupational status: employed Cognitive needs: No Hearing needs: No Vision needs: No Review of Systems Const Denies weight gain and Denies weight loss ENT Reports no additional complaints, Denies dysphagia and Denies odynophagia Card Reports no additional complaints Resp Reports no additional complaints GI Reports abdominal pain (Upper), Denies belching, Denies melena, Denies bloating, Denies change in bowel habits, Reports constipation (occasional), Denies dysphagia, Denies excessive flatus, Denies dyspepsia, Reports heartburn, Denies diarrhea, Denies loose stools, Denies nausea, Denies odynophagia and Denies vomiting Reports no additional complaints Musc Reports no additional complaints Neuro Reports no additional complaints Psych Reports no additional complaints Endo Reports no additional complaints Physical Exam Vital Signs: Last Vital Signs Pulse 86 06/04/23 13:46 BP 145/70 H 06/04/23 13:46 BMI result Body Mass Index 44.8 Const General: healthy appearing, no acute distress and well developed Nutritional Appearance: obese Orientation/consciousness: patient oriented x3 HEENT Head: Yes normal to inspection, Yes normocephalic and Yes atraumatic Face and sinus: Yes normal facial exam Mouth: Normal oral and palatal mucosa present Throat: Yes posterior oropharynx normal, Yes tonsils normal and Yes uvula midline Eyes General: appearance normal, both eyes and all related structures Neck Neck: Yes normal visual inspection, Yes full ROM and Yes trachea midline Thyroid: Thyroid normal Resp Effort & Inspection: normal respiratory effort, able to speak in complete sentences, no tracheal deviation and symmetric chest movement Auscultation: clear to auscultation bilaterally Cardio Rate: regular rate GI Inspection: Yes normal to inspection, No distended and Yes obesity Palpation (GI): Soft to palpation, not firm, nontender and No hepatosplenomegaly present Auscultation: normal bowel sounds General: Yes no CVA tenderness Back/Spine/Pelvis Back: no CVA tenderness Skin General skin exam: elasticity normal, turgor normal and dry skin Neuro General: patient oriented x3 Psych Appearance: grossly normal Mental Status: mental status grossly normal Speech and movement: Normal speech and movement present Assessment & Plan Assessment & Plan (1) GERD (gastroesophageal reflux disease): Code(s): K21.9 - Gastro-esophageal reflux disease without esophagitis Qualifiers: Esophagitis presence: esophagitis presence not specified Qualified Code(s): K21.9 - Gastro-esophageal reflux disease without esophagitis (2) Postprandial epigastric pain: Code(s): R10.13 - Epigastric pain (3) Constipation: Code(s): K59.00 - Constipation, unspecified Qualifiers: Constipation type: slow transit constipation Qualified Code(s): K59.01 - Slow transit constipation Plan Continue omeprazole in the morning half an hour before breakfast. Patient can take famotidine at bedtime. Discussed with patient avoiding dietary triggers and late night snacking. Staying upright for minimum 3 hours after meals dis cussed with patient. Patient was encouraged to increase fluid intake and activity to promote better bowel motility. Patient will return in 5 weeks. Will discuss going for colonoscopy and we will send patient also for upper endoscopy. Patient is going for upper GI series, we will discuss them next visit. Patient is agreeable to plan of care and verbalizes understanding of instructions. She was given the opportunity to ask questions and all questions answered. Thank you for allowing me to participate in her care Medications: New famotidine (Pepcid) 20 mg PO BEDTIME 30 tabs 3RF K21.9 - Gastro-esophageal reflux disease without esophagitis Coding Level of Care Code New Pt Level 4 (85685) Diagnoses Gastroesophageal reflux disease, unspecified whether esophagitis present K21.9 Esophagitis presence: esophagitis presence not specified Postprandial epigastric pain R10.13 Slow transit constipation K59.01 Constipation type: slow transit constipation Time Spent (min) 45 Comment 30 minutes spent with patient and additional 15 minutes spent reviewing her records
== END 2023-06-04 14:27 | disposition home or self-care (01) ==
PROVIDERS: PCP Internal Medicine; Visit Provider Nurse Practitioner Family
DX: K21.9 Gastro-esophageal reflux disease without esophagitis (principal); R10.13 Epigastric pain; K59.01 Slow transit constipation
CPT/HCPCS: 99204

== ENCOUNTER → 2023-06-04 13:40 | Outpatient (BNVA) | payer OTHER, SELFPAY | PROVIDERS: PCP Internal Medicine; Visit Provider Nurse Practitioner Family ==

== ENCOUNTER 2023-06-25 08:18 | Outpatient (REF) | payer OTHER, SELFPAY ==
--- NOTE | ~2023-06-25 | FL_ITS ---
EXAMINATION: XR FLUOROSCOPY UPPER GI WITH AIR CLINICAL INFORMATION: Abdominal pain COMPARISON: None TECHNIQUE: Fluoroscopic air contrast upper GI examination was performed utilizing standard techniques with thin and thick barium and effervescent granules. Numerous spot images were obtained. FINDINGS: Dual and single contrast images of the esophagus demonstrate normal caliber, contour, and mucosal pattern. No evidence of stricture, mass, or ulcerations identified. Primary Esophageal peristalsis was normal. Nonpropulsive tertiary contractions are noted in the mid and distal esophagus. A very small type I sliding hiatal hernia is present. Gastroesophageal reflux is seen up to the thoracic inlet. Dual contrast and single contrast images of the stomach demonstrated normal contour and mucosal pattern without evidence of mass, ulceration, or other abnormality. Contrast freely passed into the gastric antrum and duodenal bulb without delay. Single and air-contrast images of the duodenal bulb demonstrate no abnormality. The duodenal sweep has a normal appearance, course, and mucosal fold appearance. The imaged proximal jejunum has a normal fold pattern and caliber. FLUOROSCOPY TIME: 3 minutes 57 seconds Number of Spot Images: 15 Number of Cine: 9 DOSE AREA PRODUCT: 3857 uGy-m2 (microgray-meter squared) FL/FL upper GI series IMPRESSION: 1. Mild esophageal dysmotility 2. Small type I hiatal hernia 3. Gastroesophageal reflux This procedure was performed by Olu Lucero PA-C, and supervised by Dr. Staton
== END 2023-06-25 08:19 | disposition home or self-care (01) ==
LOC: HO.XRAY 08:18
PROVIDERS: PCP Internal Medicine; Visit Provider Internal Medicine
DX: J06.9 Acute upper respiratory infection, unspecified (principal); R13.10 Dysphagia, unspecified; K21.9 Gastro-esophageal reflux disease without esophagitis
CPT/HCPCS: 71046; 74240

== ENCOUNTER → 2023-06-25 08:20 | Outpatient (BNV) | payer OTHER, SELFPAY | PROVIDERS: PCP Internal Medicine; Visit Provider Radiology Diagnostic Radiology | DX: R10.9 Unspecified abdominal pain (principal); K21.9 Gastro-esophageal reflux disease without esophagitis; K44.9 Diaphragmatic hernia without obstruction or gangrene | CPT/HCPCS: 74246 ==

== ENCOUNTER 2023-06-28 09:43 | Emergency (ER) | payer OTHER, SELFPAY ==
--- NOTE | ~2023-06-28 | XR_ITS ---
EXAMINATION: XR chest 2V CLINICAL INFORMATION: Reason for Exam cough COMPARISON: No prior chest x-ray available in our system for comparison at the time of this dictation. TECHNIQUE: XR chest 2V, 2 Views Lungs and Betzy: Both lungs are clear. Pleura: Normal. Costophrenic angles are sharp. No pneumothorax. Heart: The heart is normal in size. Mediastinum: The mediastinum is within normal limits.. Bones: Skeletal structures included are normal for patient's age. XR/XR chest 2V IMPRESSION: No radiographic evidence of acute cardiopulmonary disease.
[2023-06-28 09:46] VITALS: BP 130/70; PULSE 86; RESP 18; TEMP 36.6; O2SAT 98; BMI 44.4
--- NOTE | 2023-06-28 10:54 | ED.GENADULT ---
HPI - General Adult General Chief complaint: Upper Respiratory Symptoms Stated complaint: cough Time Seen by Provider: 06/28/23 09:55 Source: patient Mode of arrival: ambulatory Limitations: no limitations History of Present Illness HPI narrative: 43 year old female with pmhx significant for asthma and GERD presents to the ED today for evaluation of cough and body aches x4 days. Reports fever with TMAX of 100.1 at home. This has since resolved. Now has a lingering cough that is exacerbating her asthma along with general body aches. Cough is nonproductive of sputum. Has been using inhaler and nebulizer at home without relief. Last used these last night. Reports family sick at home with similar symptoms. Denies fever, chills, ear pain, sore throat, sputum production, SOB, chest pain, wheezing, n/v, abd pain, diarrhea, LE pain/ swelling. Denies recent travel or long car rides. Related Data Home Medications Medication Instructions Recorded Confirmed uxzrunvb-oypjepe-hqjz-iron 18 tab PO 09/03/21 03/04/23 mg-FA 400 mcg-vit K 25 mcg tablet (One-A-Day Women's Complete(with vit K)) cetirizine 10 mg tablet (Zyrtec) 10 mg PO DAILY 06/04/23 Previous Rx's Medication Instructions Recorded fluticasone propionate 110 2 puff inhalation BID #12 grams 09/03/21 mcg/actuation HFA aerosol inhaler diclofenac sodium 1 % topical gel 4 g topical QID #100 grams 03/04/23 (Arthritis Pain (diclofenac)) albuterol sulfate 90 mcg/actuation 2 puff inhalation Q6H PRN 03/22/23 aerosol inhaler shortness of breath or wheezing #8.5 grams ondansetron 4 mg disintegrating 4 mg PO Q8H PRN nausea and 03/28/23 tablet vomiting #20 tabs ibuprofen 800 mg tablet 800 mg PO Q8H PRN pain 30 days #60 05/19/23 tabs omeprazole 20 mg capsule,delayed 20 mg PO DAILY #90 caps 05/19/23 release famotidine 20 mg tablet (Pepcid) 20 mg PO BEDTIME #30 tabs 06/04/23 benzonatate 100 mg capsule 100 mg PO BID PRN cough #20 caps 06/28/23 prednisone 20 mg tablet 20 mg PO DAILY #5 tabs 06/28/23 Allergies Allergy/AdvReac Type Severity Reaction Status Date / Time No Known Allergies Allergy Verified 06/28/23 09:46 [No Known Allergies*] Review of Systems Review of Systems: Constitutional: No fever, chills, fatigue, night sweats, weight changes ENT/Mouth: No ear pain, hearing loss, nasal congestion, sinus pain, rhinorrhea, sore throat, odynophagia, dysphagia Eyes: No eye pain, swelling, redness, vision changes, discharge Cardio: No chest pain, palpitations, SANDOVAL, orthopnea, peripheral edema Pulm: No SOB, +cough, No sputum, wheezing, dyspnea, hemoptysis GI: No nausea, vomiting, hematemesis, abdominal pain, diarrhea, constipation, hematochezia, melena : No irregular bleeding, dysuria, frequency, urgency, hesitancy, hematuria, flank pain MSK: No back pain, neck pain, joint pain, +myalgias Skin: No lesions, rashes Neuro: No weakness, numbness, paresthesias, LOC, dizziness, headache All other systems reviewed and are negative. [facility] Past Medical History Attestation statement: The following information was validated with the patient. Source: old records reviewed and nursing notes reviewed Medical History Hemorrhoids History of pilonidal cyst Asthma GERD (gastroesophageal reflux disease) Surgical History S/P dilatation and curettage History of hernia surgery Previous section History of excision of pilonidal cyst H/O tubal ligation Family History Family History Father Chronic mental illness Mother Chronic mental illness Maternal Grandfather Renal cell cancer Social History Social History Housing: House Alcohol intake: never Patient Tobacco Use Status: Never used Tobacco e-Cigarette/Vaping Use: Never Used Second Hand Smoke Exposure: No Advance Directives: No Current occupational status: employed Cognitive needs: No Hearing needs: No Vision needs: No Physical Exam ED Vital Signs: Vital Signs - 24 hr 06/28/23 09:46 Temperature 97.8 F Pulse Rate 86 Respiratory Rate 18 Blood Pressure 130/70 Pulse Oximetry 98 Oxygen Delivery Method Room Air BMI result Body Mass Index 44.4 Vital signs stable, afebrile Const General: cooperative, healthy appearing, comfortable, no acute distress, alert and awake Orientation/consciousness: patient oriented x3 Limitations: no limitations HENMT Other: + posterior oropharynx without erythema or edema, uvula is midline, no tonsilar exudates or peritonsillar masses, controlling secretions and speaking in complete sentences. Head: Yes normal to inspection, Yes normocephalic and Yes atraumatic Ears: hearing grossly normal bilaterally, external ears normal, TM's normal bilaterally, EAC's normal, mastoids normal and no periauricular adenopathy General nose exam: Normal external nose present and No nasal discharge present Face and sinus: Yes normal facial exam and Yes sinuses nontender Eyes General: appearance normal, both eyes and all related structures Pupils: Equal, round and reactive pupils present Neck Other: + no cervical, submandibular or submental LAD. Neck: Yes normal visual inspection and Yes full ROM Resp Effort & Inspection: normal respiratory effort, able to speak in complete sentences, Actively coughing, no respiratory distress, no tripod positioning and no use of accessory muscles Auscultation: clear to auscultation bilaterally and no wheezes Cardio Rate: regular rate Rhythm: regular rhythm Skin General skin exam: no rashes or lesions noted Neuro General: patient oriented x3, gait normal and moves all extremities Cranial nerves: Yes Equal, round and reactive pupils present Extrem General: Yes normal to inspection Course Course Course Narrative: Patient tested negative for COVID, RSV, influenza. Chest x-ray unremarkable. Patient likely has a viral bronchitis. Will send prednisone and Tessalon Perles to pharmacy for symptoms. Antibiotics not warranted at this time. Discussed worrisome signs and symptoms of when to return to the ED. Patient has remained stable throughout ED visit today. Discussed strict return precautions. All questions answered at this time. Patient is agreeable with disposition and stable for discharge. Medications Administered Discontinued Medications Generic Name Dose Route Start Last Admin Trade Name Freq PRN Reason Stop Dose Admin Methylprednisolone Sodium Succinate 60 mg 06/28/23 10:58 06/28/23 11:22 Methylprednisolone Sod Succ 125 Mg/2 Ml Vial IM 06/28/23 10:59 60 mg ONCE ONE Administration Medical Decision Making Medical Decision Making MDM Narrative: 43 year old female with pmhx significant for asthma presents to the ED today for evaluation of cough and body aches x4 days. Vital signs stable, afebrile. Patient is nontoxic appearing and in no acute distress. Lungs CTA bilaterally, no wheezes. Coughing on exam. RRR. Bilateral EACs and TMs WNL. Posterior oropharynx WNL. No calf tenderness bilaterally. Perc 0. Clinical concern for viral syndrome, pneumonia, bronchitis. Lower suspicion for strep throat, mono. Unlikely EXCELLENCE MANAGER, retropharyngeal abscess, dental abscess, epiglottis, acute respiratory distress, pneumothorax, TB. Plan for viral serology and chest x-ray. Differential Diagnosis Differential Diagnoses: The differential diagnosis associated with the presentation includes as above. Admission/Observation Not indicated Lab Data [facility] Lab Attestation statement: I reviewed the patient's lab results. as above Labs: Lab Results 06/28/23 Range/Units 09:54 Influenza Type A (PCR) NEGATIVE (Negative) Influenza Type B (PCR) NEGATIVE (Negative) RSV RNA Qual (PCR) NEGATIVE (Negative) SARS-CoV-2 RNA (RT-PCR) NEGATIVE (Negative) Independent Interpretation I performed an independent interpretation of an: Plain X-Ray Interpretation: Chest x-ray without consolidation or infiltrate, agree with radiologist's interpretation. Radiology Impression Discussion of test interpretation with radiology: I have reviewed the radiologist's reading. Radiologist Impression: XR chest 2V IMPRESSION: No radiographic evidence of acute cardiopulmonary disease. External Record Review External record reviewed: Inpatient record, Office record, Outpatient record, Prior outpatient labs, Prior outpatient radiology, Primary care record and Outside ED record Prescription Management I considered prescription management with: Pain Medication, Antibiotic and Other (Steroid) Chronic Conditions Patient?s care impacted by: Other (Asthma) Social Determinants Patient?s care significantly limited by Social Determinants of Health including: Other Social Determinant of Health Critical Care Time Critical Care Time Critical Care Time: No Discharge Plan Discharge Clinical Impression: Bronchitis Patient Disposition: Home, Self-Care Instructions: Acute Bronchitis (ED) Additional Instructions: You tested negative for COVID, RSV, flu. Your chest x-ray was normal. You likely have a bronchitis. The most common cause of this is viral and this does not warrant antibiotics. He received a dose of steroids in the emergency department today. Prednisone as a steroid that has been sent to your pharmacy. Take this over the next 5 days. Tessalon Perles have been sent to your pharmacy. Take these as needed for cough. Follow-up with your primary care provider this week. If symptoms persist or worsen please return to the emergency department. In the case of emergency call 911. Prescriptions: New prednisone 20 mg tablet 20 mg PO DAILY Qty: 5 0RF benzonatate 100 mg capsule 100 mg PO BID PRN (Reason: cough) Qty: 20 0RF No Action albuterol sulfate 90 mcg/actuation HFA aerosol inhaler 2 puff inhalation Q6H PRN (Reason: shortness of breath or wheezing) Qty: 8.5 3RF omeprazole 20 mg capsule,delayed release(DR/EC) 20 mg PO DAILY Qty: 90 1RF ibuprofen 800 mg tablet 800 mg PO Q8H PRN (Reason: pain) 30 Days Qty: 60 0RF ondansetron 4 mg tablet,disintegrating 4 mg PO Q8H PRN (Reason: nausea and vomiting) Qty: 20 0RF fluticasone propionate 110 mcg/actuation HFA aerosol inhaler 2 puff inhalation BID Qty: 12 11RF One-A-Day Women's Complete(vK) 18 mg-400 mcg- 25 mcg tablet PO cetirizine [Zyrtec] 10 mg tablet 10 mg PO DAILY diclofenac sodium [Arthritis Pain (diclofenac)] 1 % gel 4 g topical QID Qty: 100 3RF Rx Instructions: apply to single knee, ankle, foot; for foot includes sole/toes/top of foot famotidine [Pepcid] 20 mg tablet 20 mg PO BEDTIME Qty: 30 3RF Referrals: Po,Iesha Landon MD [Primary Care Provider] - Interventions: ED Discharge Assessment Last Done: 06/28/23 12:17 Discharge Date/Time: 06/28/23 12:17
[2023-06-28] MEDS: methylPREDNISolone Sod Succ 125 MG/2 ML VIAL 60 MG IM (11:22)
--- NOTE | 2023-06-28 11:30 | PC.NURSE ---
patient resting quietly with even and unlabored respirations. awaiting results of covid/flu/rsv swab at this time
[2023-06-28 12:00] LABS: Influenza A PCR NEGATIVE (Negative); Influenza B PCR NEGATIVE (Negative); Resp Syncy Virus RNA Qual PCR NEGATIVE (Negative); SARS COV2 PCR INHOUSE NEGATIVE (Negative)
== END 2023-06-28 12:17 | disposition home or self-care (01) ==
PROVIDERS: Emergency Provider Student in an Organized Health Care Education/Training Program; PCP Internal Medicine
DX: J40 Bronchitis, not specified as acute or chronic (principal); J45.909 Unspecified asthma, uncomplicated; Z20.822 Contact with and (suspected) exposure to COVID-19; Z20.828 Contact with and (suspected) exposure to other viral communicable diseases
CPT/HCPCS: 0241U; 71046; 96372; 99282; 99284; J2930

== ENCOUNTER 2023-07-01 03:58 | Emergency (ER) | payer OTHER, SELFPAY ==
[2023-07-01 04:07] VITALS: BP 132/68; PULSE 84; RESP 20; TEMP 36.1; O2SAT 97; BMI 44.3
[2023-07-01 04:30] VITALS: BP 129/74; PULSE 89; RESP 14; TEMP 36.8; O2SAT 97
[2023-07-01] MEDS: Acetaminophen 325 MG TABLET 975 MG PO (04:42)
[2023-07-01] MEDS: Ibuprofen 400 MG TABLET PO (04:42)
[2023-07-01] MEDS: Benzonatate 100 MG CAPSULE 200 MG PO (04:42)
[2023-07-01 05:00] LABS: COVID-19 Test Negative (Negative); IDNOW Serial# 58CA691E; IDNOW Serial# 6674DD1D; Influenza A Negative (Negative); Influenza B2 Negative (Negative)
--- NOTE | 2023-07-01 05:42 | ED_ITS ---
HPI - URI/Sore Throat General Chief Complaint: Upper Respiratory Symptoms Stated Complaint: upper respiratory/bronchitis Time Seen by Provider: 07/01/23 04:52 Source: patient Mode of arrival: ambulatory History of Present Illness HPI Narrative: 43-year-old female who presents with persistent cough despite being seen and diagnosed with bronchitis on the weekend. Related Data Home Medications Medication Instructions Recorded Confirmed [id number]-avva-iron 18 tab PO 09/03/21 03/04/23 mg-FA 400 mcg-vit K 25 mcg tablet (One-A-Day Women's Complete(with vit K)) cetirizine 10 mg tablet (Zyrtec) 10 mg PO DAILY 06/04/23 Previous Rx's Medication Instructions Recorded fluticasone propionate 110 2 puff inhalation BID #12 grams 09/03/21 mcg/actuation HFA aerosol inhaler diclofenac sodium 1 % topical gel 4 g topical QID #100 grams 03/04/23 (Arthritis Pain (diclofenac)) albuterol sulfate 90 mcg/actuation 2 puff inhalation Q6H PRN 03/22/23 aerosol inhaler shortness of breath or wheezing #8.5 grams ondansetron 4 mg disintegrating 4 mg PO Q8H PRN nausea and 03/28/23 tablet vomiting #20 tabs ibuprofen 800 mg tablet 800 mg PO Q8H PRN pain 30 days #60 05/19/23 tabs omeprazole 20 mg capsule,delayed 20 mg PO DAILY #90 caps 05/19/23 release famotidine 20 mg tablet (Pepcid) 20 mg PO BEDTIME #30 tabs 06/04/23 benzonatate 100 mg capsule 100 mg PO BID PRN cough #20 caps 06/28/23 prednisone 20 mg tablet 20 mg PO DAILY #5 tabs 06/28/23 Allergies Allergy/AdvReac Type Severity Reaction Status Date / Time No Known Allergies Allergy Verified 06/28/23 09:46 [No Known Allergies*] Review of Systems Review of Systems: Pertinent positives and negatives as stated in HPI [facility] Past Medical History Source: nursing notes reviewed Medical History Hemorrhoids History of pilonidal cyst Asthma GERD (gastroesophageal reflux disease) Surgical History S/P dilatation and curettage History of hernia surgery Previous section History of excision of pilonidal cyst H/O tubal ligation Family History Family History Father Chronic mental illness Mother Chronic mental illness Maternal Grandfather Renal cell cancer Social History Social History Housing: House Alcohol intake: never Patient Tobacco Use Status: Never used Tobacco Smoked in Last 30 Days: No e-Cigarette/Vaping Use: Never Used Second Hand Smoke Exposure: No Use of substances other than those prescribed or required for medical reasons: No Advance Directives: No Advance Directives Information Provided: No Patient : No Current occupational status: employed Cognitive needs: No Hearing needs: No Vision needs: No Physical Exam Vital Signs: Vital Signs: Last Vital Signs Temp 98.3 F 07/01/23 04:30 Pulse 76 07/01/23 06:00 Resp 14 07/01/23 06:00 BP 117/71 07/01/23 06:00 Pulse Ox 98 07/01/23 06:00 O2 Del Method Room Air 07/01/23 06:00 BMI result Body Mass Index 44.3 VITAL SIGNS: Reviewed. GENERAL: Well developed, well nourished, in no acute distress. HEAD: Normocephalic/atraumatic EYES: PERRLA, EOMI EARS: Ext canals without abnormality, TMs non-bulging and non-erythematous NOSE: Nares patent bilateral OROPHARYNX: no oral lesions noted, posterior pharynx clear and non-erythematous without noted tonsillar enlargement/erythema/exudates NECK: Supple, no adenopathy LUNGS: Normal breath sounds. No adventitious sounds or accessory muscle use. SpO2<98> CARDIOVASCULAR: Regular rate and rhythm without noted murmurs ABDOMEN: Soft, non-tender, non-distended with bowel sounds. MUSCULOSKELETAL: No tenderness, deformities, or effusions noted on gross inspection. EXTREMITIES: No cyanosis, clubbing or edema. SKIN: Inspection of the skin reveals no rashes NEUROLOGIC: Alert and oriented x 4. Strength and sensation to light touch were grossly intact x 4. Medications Administered Discontinued Medications Generic Name Dose Route Start Last Admin Trade Name Freq PRN Reason Stop Dose Admin Acetaminophen 975 mg 07/01/23 04:29 07/01/23 04:42 Acetaminophen 325 Mg Tablet PO 07/01/23 04:30 975 mg ONCE ONE Administration Benzonatate 200 mg 07/01/23 04:29 07/01/23 04:42 Benzonatate 100 Mg Capsule PO 07/01/23 04:30 200 mg ONCE ONE Administration Ibuprofen 400 mg 07/01/23 04:29 07/01/23 04:42 Ibuprofen 400 Mg Tablet PO 07/01/23 04:30 400 mg ONCE ONE Administration Medical Decision Making Medical Decision Making MDM Narrative: 43-year-old female with history and clinical presentation most likely viral illness whether it be COVID/influenza. No evidence to suggest pneumonia and patient with persistent cough. She was provided with combination analgesics and cough medication. I reviewed swabs which are negative for COVID/influenza. She is otherwise discharged home. Differential Diagnosis Differential Diagnoses: The differential diagnosis associated with the presentation includes Please see the discussion above Admission/Observation Consideration of admission/observation: Escalation of care including admission/observation considered Please see the discussion above Lab Data [facility] Lab Attestation statement: I reviewed the patient's lab results. Please see the discussion above Labs: Lab Results 07/01/23 Range/Units 04:40 COVID-19 (YG) Negative (Negative) COVID-19 Clin Com See Note Influenza Type A (JOSE GUADALUPE) Negative (Negative) Influenza Type B (JOSE GUADALUPE) Negative (Negative) Influenza A & B Note See Note Discharge Plan Discharge Clinical Impression: Viral syndrome, Bronchitis Patient Disposition: Home, Self-Care Instructions: Chronic Bronchitis (ED), Viral Syndrome (ED) Additional Instructions: 1. Resume all home medications as prescribed. 2. Please follow-up with primary care doctor. Prescriptions: No Action albuterol sulfate 90 mcg/actuation HFA aerosol inhaler 2 puff inhalation Q6H PRN (Reason: shortness of breath or wheezing) Qty: 8.5 3RF omeprazole 20 mg capsule,delayed release(DR/EC) 20 mg PO DAILY Qty: 90 1RF ibuprofen 800 mg tablet 800 mg PO Q8H PRN (Reason: pain) 30 Days Qty: 60 0RF prednisone 20 mg tablet 20 mg PO DAILY Qty: 5 0RF benzonatate 100 mg capsule 100 mg PO BID PRN (Reason: cough) Qty: 20 0RF ondansetron 4 mg tablet,disintegrating 4 mg PO Q8H PRN (Reason: nausea and vomiting) Qty: 20 0RF fluticasone propionate 110 mcg/actuation HFA aerosol inhaler 2 puff inhalation BID Qty: 12 11RF One-A-Day Women's Complete(vK) 18 mg-400 mcg- 25 mcg tablet PO cetirizine [Zyrtec] 10 mg tablet 10 mg PO DAILY diclofenac sodium [Arthritis Pain (diclofenac)] 1 % gel 4 g topical QID Qty: 100 3RF Rx Instructions: apply to single knee, ankle, foot; for foot includes sole/toes/top of foot famotidine [Pepcid] 20 mg tablet 20 mg PO BEDTIME Qty: 30 3RF Referrals: Po,Iesha Landon MD [Primary Care Provider] - Interventions: ED Discharge Assessment Last Done: 07/01/23 06:03 Discharge Date/Time: 07/01/23 06:04
[2023-07-01 06:00] VITALS: BP 117/71; PULSE 76; RESP 14; O2SAT 98
== END 2023-07-01 06:04 | disposition home or self-care (01) ==
PROVIDERS: Emergency Provider Student in an Organized Health Care Education/Training Program; PCP Internal Medicine
DX: J40 Bronchitis, not specified as acute or chronic (principal); B34.9 Viral infection, unspecified; Z11.52 Encounter for screening for COVID-19; Z20.822 Contact with and (suspected) exposure to COVID-19
CPT/HCPCS: 87502; 87635; 99283; 99285

== ENCOUNTER 2023-07-14 08:47 | Outpatient (AMB) | payer OTHER, SELFPAY ==
--- NOTE | 2023-07-14 08:57 | MHC.OFFVIS ---
Intake Vital Signs 07/14/23 09:01 Height 5 ft 3 in Weight 253 lb 8.505 oz BMI 44.9 BP 118/76 Blood Pressure Location Lt brachial Position Sitting Pulse 77 Intake Visit Reasons: Colonoscopy Screening Intake Note: Maria D presents in the office as a colonoscopy screening. CC: She states that in March she was having some issues and she had testing done by PCP. From New years weekend til now she has not been feeling the best stomach butler. She was sick and given prednisone so she was taking that and she is not sure if that could be upsetting her stomach. She gets acidic feeling in her chest. Gas has been horrible. When she has a BM it smells crazy lately. Omeprazole has given her loose stools. Allergies No Known Allergies [No Known Allergies*] Allergy (Verified 07/14/23 09:02) HPI Colonoscopy Screening HPI Details LAST VISIT: GERD (gastroesophageal reflux disease) Postprandial epigastric pain Constipation Plan Continue omeprazole in the morning half an hour before breakfast. Patient can take famotidine at bedtime. Discussed with patient avoiding dietary triggers and late night snacking. Staying upright for minimum 3 hours after meals discussed with patient. Patient was encouraged to increase fluid intake and activity to promote better bowel motility. Patient will return in 5 weeks. Will discuss going for colonoscopy and we will send patient also for upper endoscopy. Patient is going for upper GI series, we will discuss them next visit. Patient is agreeable to plan of care and verbalizes understanding of instructions. She was given the opportunity to ask questions and all questions answered. ? Thank you for allowing me to participate in her care Medications New famotidine (Pepcid) 20 mg PO BEDTIME 30 tabs 3RF K21.9 TODAY'S VISIT Patient is here today for follow-up and to discuss going for colonoscopy and upper endoscopy. Patient reports that she has been feeling better, however at the end of June patient had upper respiratory infection, was put on antibiotic and prednisone. Patient feels like after that she had more bowel issues where she had diarrhea, dyspepsia and epigastric discomfort. Patient continues to have acid reflux. Now patient reports that her diarrhea has, awake, however she still has postprandial abdominal bloating. Patient denies any nausea or vomiting. Denies any melena, hematochezia, unintentional weight loss or ribbon like stools. No issues with anesthesia in the past. No history of sleep apnea. Not on any anticoagulation medication. Denies any cardiac or respiratory symptoms. [facility] Medical History Hemorrhoids History of pilonidal cyst Asthma GERD (gastroesophageal reflux disease) Surgical History S/P dilatation and curettage History of hernia surgery Previous section History of excision of pilonidal cyst H/O tubal ligation Family History Father Chronic mental illness Mother Chronic mental illness Maternal Grandfather Renal cell cancer Social History Housing: House Alcohol intake: never Patient Tobacco Use Status: Never used Tobacco e-Cigarette/Vaping Use: Never Used Second Hand Smoke Exposure: No Current occupational status: employed Cognitive needs: No Hearing needs: No Vision needs: No Review of Systems Const Denies weight gain and Denies weight loss ENT Reports no additional complaints, Denies dysphagia and Denies odynophagia Card Reports no additional complaints Resp Reports no additional complaints GI Denies abdominal pain, Denies belching, Denies melena, Reports bloating, Denies change in bowel habits, Denies dysphagia, Denies excessive flatus, Denies dyspepsia, Reports heartburn, Denies diarrhea, Denies loose stools, Denies nausea, Denies odynophagia and Denies vomiting Reports no additional complaints Musc Reports no additional complaints Neuro Reports no additional complaints Psych Reports no additional complaints Endo Reports no additional complaints Physical Exam Vital Signs: Last Vital Signs Pulse 77 07/14/23 09:01 BP 118/76 07/14/23 09:01 BMI result Body Mass Index 44.9 Const General: healthy appearing, no acute distress and well developed Nutritional Appearance: obese Orientation/consciousness: patient oriented x3 Resp Effort & Inspection: normal respiratory effort, able to speak in complete sentences, no tracheal deviation and symmetric chest movement Auscultation: clear to auscultation bilaterally Cardio Rate: regular rate GI Inspection: Yes normal to inspection, No distended and Yes obesity Palpation (GI): Soft to palpation, not firm, nontender and No hepatosplenomegaly present Auscultation: normal bowel sounds General: Yes no CVA tenderness Back/Spine/Pelvis Back: no CVA tenderness Skin General skin exam: elasticity normal, turgor normal and dry skin Neuro General: patient oriented x3 Psych Appearance: grossly normal Mental Status: mental status grossly normal Speech and movement: Normal speech and movement present Affect: normal affect Attitude: cooperative Thought process: Normal thought process present Thought content: Normal thought content present Insight: Good insight present (Psych) Judgement: Good judgement present (Psych) Assessment & Plan Assessment & Plan (1) Colon cancer screening: Code(s): Z12.11 - Encounter for screening for malignant neoplasm of colon (2) GERD (gastroesophageal reflux disease): Code(s): K21.9 - Gastro-esophageal reflux disease without esophagitis Qualifiers: Esophagitis presence: esophagitis presence not specified Qualified Code(s): K21.9 - Gastro-esophageal reflux disease without esophagitis (3) Postprandial epigastric pain: Code(s): R10.13 - Epigastric pain (4) Constipation: Code(s): K59.00 - Constipation, unspecified Qualifiers: Constipation type: slow transit constipation Qualified Code(s): K59.01 - Slow transit constipation Plan Patient denies any cardiac or respiratory symptoms.? Continues to have epigastric pain with occasional dyspepsia. Patient is taking PPI on as needed basis. Will send patient for upper endoscopy to rule out gastritis, duodenitis, esophagitis, gastric peptic ulcers, Molina's, H pylori. Denies any issues with anesthesia in the past.? Denies any history of sleep apnea.? No history infectious diseases in the past or present.? Not on any anticoagulation therapy.? No family or personal history of colon cancer or polyps.? Patient denies melena, hematochezia, unintentional weight loss or ribbon like stools.? Discussed at length the pre-procedure,? prep, diet & medications as well as what to expect prior, during and after the procedure.?? Stressed the importance of good bowel prep. ?Recommended the use of Vaseline or Calmoseptine OTC & baby wipes with bowel movements to promote comfort.? ?Patient verbalizes understanding and agrees to plan of care.? She was given the opportunity to ask questions and all questions answered.? We will see her after the procedure.? Medications: New bisacodyl (Dulcolax (bisacodyl)) take 4 tabs at noon the day before your colonoscopy 20 mg (4 x 5 mg) PO ONCE 1 day 4 tabs 0RF Z12.11 - Encounter for screening for malignant neoplasm of colon polyethylene glycol 3350 (Miralax) As directed by gastroenterology department at [facility] 238 grams PO ONCE 238 grams 0RF Z12.11 - Encounter for screening for malignant neoplasm of colon Coding Level of Care Code Est Pt Level 4 (51809) Diagnoses Colon cancer screening Z12.11 Gastroesophageal reflux disease, unspecified whether esophagitis present K21.9 Esophagitis presence: esophagitis presence not specified Postprandial epigastric pain R10.13 Slow transit constipation K59.01 Constipation type: slow transit constipation Time Spent (min) 35 Comment 25 minutes spent with patient and additional 10 minutes spent reviewing her records
[2023-07-14 09:01] VITALS: BP 118/76; PULSE 77; BMI 44.9
== END 2023-07-14 09:35 | disposition home or self-care (01) ==
PROVIDERS: PCP Internal Medicine; Visit Provider Nurse Practitioner Family
DX: Z12.11 Encounter for screening for malignant neoplasm of colon (principal); K21.9 Gastro-esophageal reflux disease without esophagitis; R10.13 Epigastric pain; K59.01 Slow transit constipation; Z01.818 Encounter for other preprocedural examination
CPT/HCPCS: 99214

== ENCOUNTER → 2023-07-14 08:47 | Outpatient (BNVA) | payer OTHER, SELFPAY | PROVIDERS: PCP Internal Medicine; Visit Provider Nurse Practitioner Family ==

== ENCOUNTER 2023-07-15 08:51 | Outpatient (AMB) | payer OTHER, SELFPAY ==
[2023-07-15 08:55] VITALS: BP 112/78; PULSE 85; O2SAT 99; BMI 44.8
--- NOTE | 2023-07-15 08:55 | A.OFFPC_ITS ---
Vital Signs 07/15/23 08:55 Height 5 ft 3 in Weight 253 lb 0.8 oz BMI 44.8 BP 112/78 Blood Pressure Location Lt brachial Position Sitting Pulse 85 Pulse Source Pulse Oximeter Pulse Oximetry (%) 99 Oxygen Delivery Method Room Air Intake Visit Reasons: pe Corporate Administrator Required: No Allergies No Known Allergies [No Known Allergies*] Allergy (Verified 07/15/23 08:55) Medication List - Last Reconciled 07/15/23 by Iesha Landon Po, albuterol sulfate 90 mcg/actuation 2 puffs inhalation Q6H PRN benzonatate 100 mg PO BID PRN bisacodyl (Dulcolax (bisacodyl)) 20 mg (4 x 5 mg) PO ONCE 1 day cetirizine (Zyrtec) 10 mg PO DAILY diclofenac sodium 1% (Arthritis Pain (diclofenac)) 4 grams topical QID famotidine (Pepcid) 20 mg PO BEDTIME PRN fluticasone propionate 110 mcg/actuation 2 puffs inhalation BID ibuprofen 800 mg PO Q8H PRN 30 days lb-qbjjbwa-car-iron fm-FA-vitK 18 mg-400 mcg- 25 mcg (One-A-Day Women's Complete(with vit K)) tabs PO omeprazole 20 mg PO DAILY ondansetron 4 mg PO Q8H PRN polyethylene glycol 3350 (Miralax) 238 grams PO ONCE Tobacco use date assessed: 07/15/23 Dental Screening Dental Screen Date: 07/15/23 Did you have a dental visit in the last 12 months?: Yes Did you have a dental problem in the last 6 months where you did not have access to dental care?: No Was dental information given to patient?: Patient has dentist HPI pe HPI Details 43-year-old obese female with a history of GERD right knee pain coming in for physical exam last seen in April 2023. Patient was referred for colonoscopy. Review of the notes 07/01/2023 ER visit for cough diagnosis of viral syndrome bronchitis prednisone inhalers prescribed. Patient had x-rays done in July for chest negative patient also had a GERD problem and a GI s eries done showing mild esophageal dysmotility hiatal hernia and reflux. As for the knee seen Ortho May 2023 osteoarthritis offered cortisone injection. diarrhea- but better, cough and sob, L ear feels fluid inside [facility] Medical History Hemorrhoids History of pilonidal cyst Asthma GERD (gastroesophageal reflux disease) Surgical History S/P dilatation and curettage History of hernia surgery Previous section History of excision of pilonidal cyst H/O tubal ligation Family History Father Chronic mental illness Mother Chronic mental illness Maternal Grandfather Renal cell cancer Social History Housing: House Alcohol intake: never Patient Tobacco Use Status: Never used Tobacco e-Cigarette/Vaping Use: Never Used Second Hand Smoke Exposure: No Current occupational status: employed Cognitive needs: No Hearing needs: No Vision needs: No Questionnaire PHQ-9 Over the last 2 weeks, how often have you been bothered by any of the following problems? 1. Little interest or pleasure in doing things: not at all 2. Feeling down, depressed, or hopeless: not at all 3. Trouble falling or staying asleep, or sleeping too much: not at all 4. Feeling tired or having little energy: not at all 5. Poor appetite or overeating: not at all 6. Feeling bad about yourself - or that you are a failure or have let yourself or your family down: not at all 7. Trouble concentrating on things, such as reading the newspaper or watching television: not at all 8. Moving or speaking so slowly that other people could have noticed. Or the opposite - being so fidgety or restless that you have been moving around a lot more than usual: not at all 9. Thoughts that you would be better off or of hurting yourself in some way: not at all Total score: 0 Depression Screening Interpretation: Negative Depression Screening Done: Yes Source: Developed by Drs. Monster Barriga, Brenna Diaz, Milton Hopkins and colleagues, with an educational zi from [employer]. Thrive Questionnaire Date Thrive assessed: 07/15/23 I am a: Patient What is your living situation today?: I have a steady place to live Within the past 12 months, did the food you bought not last and you didn't have the money to get more?: Never true Within the past 12 months, did you worry whether your food would run out before you got money to buy more?: Never true Do you have trouble paying for medicines?: No Do you have trouble getting transportation to medical appointments?: No Do you have trouble paying your heating and electricity bill?: No Do you have trouble taking care of your child, family member or friend?: No Do you have trouble with day-to-day activities such as bathing, preparing meals, shopping, managing finances, etc.?: No Are you currently unemployed and looking for a job?: No Are you interested in more education?: No AUDIT C Alcohol Use Questionnaire (AUDIT-C) 1. How often do you have a drink containing alcohol?: Monthly or less 2. How many drinks containing alcohol do you have on a typical day when you are drinking?: 1 or 2 3. How often do you have six or more drinks on one occasion?: Never Total Score: 1 ANIKA-7 AMB Questionnaire ANIKA-7 Date ANIKA - 7 assessed: 07/15/23 Feeling nervous, anxious, or on edge: 0 = Not at all Not being able to stop or control worryin = Not at all Worrying too much about different things: 0 = Not at all Trouble relaxin = Not at all Being so restless that it is hard to sit still: 0 = Not at all Becoming easily annoyed or irritable: 0 = Not at all Feeling afraid as if something awful might happen: 0 = Not at all Total ANIKA-7 score (0-4 normal; 5-9 mild; 10-14 moderate; 15-21 severe): 0 Source: Developed by Drs. Monster Barriga, Brenna Diaz, Milton Hopkins and colleagues, with an educational zi from [employer]. Review of Systems Const Denies poor appetite and Denies weakness Eyes Denies no additional complaints ENT Reports Normal hearing present, Denies dizziness, Denies nasal congestion, Denies tinnitus and Denies sore throat Card Denies chest pain, Denies syncope, Denies rapid heart rate and Denies dyspnea Resp Denies cough and Denies dyspnea GI Denies change in stool character, Reports constipation, Denies diarrhea, Denies nausea and Denies vomiting Denies urinary frequency, Denies difficulty voiding and Denies dysuria Neuro Reports Normal hearing present, Denies confusion, Denies dizziness, Denies syncope and Denies weakness Psych Denies confusion Physical exam (Primary Care) Vital Signs: Last Vital Signs Pulse 85 07/15/23 08:55 BP 112/78 07/15/23 08:55 Pulse Ox 99 07/15/23 08:55 Oxygen Delivery Method Room Air 07/15/23 08:55 BMI result Body Mass Index 44.8 Tobacco/Smoking Status: Tobacco use Status Tobacco use date assessed 07/15/23 07/15/23 08:58 Patient Tobacco Use Status Never used Tobacco 07/15/23 08:58 e-Cigarette/Vaping Use Never Used 07/15/23 08:58 PHQ-9: PHQ-9 Score PHQ-9: Total score 0 07/15/23 08:58 Depression Screening Interpretation: Negative Thrive Assessment: Date of Thrive Assessment Date Thrive assessed 07/15/23 07/15/23 08:58 Const General: No confusion Orientation/consciousness: No confusion HENMT Head: Yes normocephalic Ears: external ears normal and TM's normal bilaterally Face and sinus: Yes normal facial exam Mouth: moist mucous membranes Throat: Yes tonsils normal Eyes Conjunctivae: conjunctivae normal Pupils: Equal, round and reactive pupils present and Pupil accommodation reflex normal Direct Ophthalmoscopy: normal light reflex Neck Neck: No lymphadenopathy Thyroid: Thyroid normal Chest Chest palpation & inspection: normal inspection of the chest Resp Effort & Inspection: normal respiratory effort and no audible wheezes Auscultation: clear to auscultation bilaterally, no crackles, no wheezes and lung sounds not diminished Cardio Rate: regular rate Rhythm: regular rhythm Peripheral pulses: radial pulses present and dorsalis pedis present GI Palpation (GI): no masses Auscultation: normal bowel sounds and normoactive bowel sounds Rectal Exam - Female: deferred Skin General skin exam: no rashes or lesions noted Rashes: no rashes Neuro General: No confusion Cranial nerves: Yes Equal, round and reactive pupils present and Yes Normal hearing present Cognition (Neuro): normal cognition Gait exam (Neuro): Normal gait present Motor exam (neuro): 5/5 motor strength present throughout Deep tendon reflexes (DTR's): Right brachioradialis reflex intensity grade: 2+, Left brachioradialis reflex intensity grade: 2+, Right patellar reflex intensity grade: 2+ and Left patellar reflex intensity grade: 2+ Extrem General: No edema Assessment and Plan Assessment & Plan (1) Annual physical exam: Code(s): Z00.00 - Encounter for general adult medical examination without abnormal findings (2) Osteoarthritis of right knee: Code(s): M17.11 - Unilateral primary osteoarthritis, right knee Qualifiers: Osteoarthritis type: unspecified Qualified Code(s): M17.11 - Unilateral primary osteoarthritis, right knee Plan: Patient has met with Orthopedics and had injections done (3) Obesity: Comment: BMI: 45.7 as of 05/14/2023 Code(s): E66.9 - Obesity, unspecified Qualifiers: Obesity type: unspecified obesity type Obesity classification: adult class 3 (BMI >= 40) Serious obesity comorbidity presence: unspecified whether serious comorbidity present Body mass index: BMI 45.0-49.9 Qualified Code(s): E66.01 - Morbid (severe) obesity due to excess calories; Z68.42 - Body mass index [BMI] 45.0-49.9, adult Plan: Diet and exercise (4) Asthma: Code(s): J45.909 - Unspecified asthma, uncomplicated Plan: Continue with the inhalers (5) GERD (gastroesophageal reflux disease): Code(s): K21.9 - Gastro-esophageal reflux disease without esophagitis Qualifiers: Esophagitis presence: esophagitis presence not specified Qualified Code(s): K21.9 - Gastro-esophageal reflux disease without esophagitis Plan: Avoid the foods that causes that usually spicy foods, tomato products, juices, coffee, soda and foods that your sensitive to. After eating do not lie down, allow 3-4 hours before in lie down. And keep the head of bed above 30 degrees to avoid the acid from going up. Medications: New hydrocortisone-acetic acid 1-2 % apply to (cotton) wick; replace wick every 24 hours 4 drps otic (ear) left Q6H 10 mL 2RF Changed From amoxicillin-pot clavulanate 875-125 mg (Augmentin) 1 tab PO BID 20 tabs 0RF 10 days To amoxicillin-pot clavulanate 875-125 mg 1 tab PO BID 10 days 20 tabs 0RF Refilled fluticasone propionate 110 mcg/actuation 2 puffs inhalation BID 12 grams 11RF J45.909 - Unspecified asthma, uncomplicated Coding Level of Care Code Est Pt Prev Care 40-64y(82205) Diagnoses Annual physical exam Z00.00 Osteoarthritis of right knee, unspecified osteoarthritis type M17.11 Osteoarthritis type: unspecified Class 3 severe obesity with body mass index (BMI) of 45.0 to 49.9 in adult, unspecified obesity type, unspecified whether serious comorbidity present E66.01; Z68.42 Obesity type: unspecified obesity type Obesity classification: adult class 3 (BMI >= 40) Serious obesity comorbidity presence: unspecified whether serious comorbidity present Body mass index: BMI 45.0-49.9 Asthma J45.909 Gastroesophageal reflux disease, unspecified whether esophagitis present K21.9 Esophagitis presence: esophagitis presence not specified
== END 2023-07-15 10:05 | disposition home or self-care (01) ==
PROVIDERS: PCP Internal Medicine; Visit Provider Internal Medicine
DX: Z00.00 Encounter for general adult medical examination without abnormal findings (principal); M17.11 Unilateral primary osteoarthritis, right knee; E66.01 Morbid (severe) obesity due to excess calories; Z68.42 Body mass index [BMI] 45.0-49.9, adult; J45.909 Unspecified asthma, uncomplicated; K21.9 Gastro-esophageal reflux disease without esophagitis
CPT/HCPCS: 99396

== ENCOUNTER 2023-12-10 08:27 | Day surgery (SDC) | payer OTHER, SELFPAY ==
[2023-12-10 08:51] VITALS: BMI 44.5
[2023-12-10] MEDS: Lactated Ringers 1,000 ML 100 ML IVCONT (08:59)
[2023-12-10 09:10] VITALS: BP 118/78; PULSE 76; RESP 18; TEMP 36.6; O2SAT 97
--- NOTE | 2023-12-10 09:20 | HO.ANESPROP2 ---
Documented by User: Tamie Sloan NP 12/08/23 14:50 HPI - Anesthesia Eval Consult details Narrative: 43yo F for Upper Endoscopy and Colonoscopy PMFSH Active Problems Active Problems: All Active Problems Internal derangement of right knee (Acute) Osteoarthritis of right knee (Acute) Colon cancer screening (Acute) Knee pain, right (Acute) Breast cancer screening by mammogram (Acute) Upper respiratory tract infection (Acute) Obesity (Acute) Annual physical exam (Acute) Renal calculus, left (Acute) COVID-19 virus infection (Acute) Persistent acute otitis media (Acute) Asthma (Acute) GERD (gastroesophageal reflux disease) (Acute) Past Medical History Medical History Hemorrhoids History of pilonidal cyst Asthma GERD (gastroesophageal reflux disease) Family History Family History Father Chronic mental illness Mother Chronic mental illness Maternal Grandfather Renal cell cancer Surgical History Surgical History S/P dilatation and curettage History of hernia surgery Previous section History of excision of pilonidal cyst H/O tubal ligation Social History Social History Housing: House Alcohol intake: never Patient Tobacco Use Status: Never used Tobacco e-Cigarette/Vaping Use: Never Used Second Hand Smoke Exposure: No Are you DNR?: No Advance Directives: No Advance Directives Information Provided: Yes Nutrition Risks: No Nutritional Risk FDLMP: just finished: Current occupational status: employed Cognitive needs: No Hearing needs: No Vision needs: No Meds Allergies Allergy/AdvReac Type Severity Reaction Status Date / Time No Known Allergies Allergy Verified 12/10/23 09:17 [No Known Allergies*] Home Medications ?Medication ?Instructions ?Recorded ?Confirmed ?Last Taken ?Type limncpsi-ulgehms-pycv-iron 18 tab PO 09/03/21 07/15/23 Unknown History mg-FA 400 mcg-vit K 25 mcg tablet (One-A-Day Women's Complete(with vit K)) cetirizine 10 mg tablet (Zyrtec) 10 mg PO DAILY 06/04/23 07/15/23 Unknown History famotidine 20 mg tablet (Pepcid) 20 mg PO BEDTIME PRN 07/14/23 07/15/23 Unknown History Assessment and Plan Assessment Anesthesia Assessment: Chart Reviewed Documented by User: Jeanette Pascual DO 12/10/23 09:21 COUNT INCLUDES THE [facility] Past Medical History Medical History Hemorrhoids History of pilonidal cyst Asthma GERD (gastroesophageal reflux disease) Family History Family History Father Chronic mental illness Mother Chronic mental illness Maternal Grandfather Renal cell cancer Family history of problems with anesthesia: No Surgical History Surgical History S/P dilatation and curettage History of hernia surgery Previous section History of excision of pilonidal cyst H/O tubal ligation History of Problems with Anesthesia: No Social History Social History Housing: House Alcohol intake: never Patient Tobacco Use Status: Never used Tobacco e-Cigarette/Vaping Use: Never Used Second Hand Smoke Exposure: No Are you DNR?: No Advance Directives: No Advance Directives Information Provided: Yes Nutrition Risks: No Nutritional Risk FDLMP: just finished: Current occupational status: employed Cognitive needs: No Hearing needs: No Vision needs: No Meds Allergies Allergy/AdvReac Type Severity Reaction Status Date / Time No Known Allergies Allergy Verified 12/10/23 09:17 [No Known Allergies*] Home Medications ?Medication ?Instructions ?Recorded ?Confirmed ?Last Taken ?Type liegjian-pduoowk-sdff-iron 18 tab PO 09/03/21 07/15/23 Unknown History mg-FA 400 mcg-vit K 25 mcg tablet (One-A-Day Women's Complete(with vit K)) cetirizine 10 mg tablet (Zyrtec) 10 mg PO DAILY 06/04/23 07/15/23 Unknown History famotidine 20 mg tablet (Pepcid) 20 mg PO BEDTIME PRN 07/14/23 07/15/23 Unknown History Exam Exam Date and Time: December 10, 2023917 Height,Weight and Vital Signs: Height 5 ft 3 in Weight 113.852 kg Vital Signs Temperature 97.9 F 12/10/23 09:10 Pulse Rate 76 12/10/23 09:10 Respiratory Rate 18 12/10/23 09:10 Blood Pressure 118/78 12/10/23 09:10 Pulse Oximetry 97 12/10/23 09:10 Oxygen Delivery Method Room Air 12/10/23 09:10 Temperature 97.9 F 12/10/23 09:10 Pulse Rate 76 12/10/23 09:10 Respiratory Rate 18 12/10/23 09:10 Blood Pressure 118/78 12/10/23 09:10 Pulse Oximetry 97 12/10/23 09:10 Oxygen Delivery Method Room Air 12/10/23 09:10 Airway Mallampati Class: II TM Dist: >3cm Neck ROM: Full Loose/Missing/Broken Teeth: No (patient denies any loose or broken teeth) Heart: S1S2 Lungs: CTAB Assessment and Plan Assessment Anesthesia Assessment: Anesthesia Plan Discussed and Chart Reviewed Final Anesthetic Review Family History of Problems with Anesthesia: No History of Problems with Anesthesia: No NPO: Yes ASA Class: III Final Preanesthetic Review: No Changes in Pt Med Stat, Meds/Allgs Chart Reviewed, Consent Obtained/Reviewed and Anes Risks/Benef Reviewed Patient Risk: Intermediate Procedure Risk: Low Anesthetic Plan Anesthetic Plan: MAC: and Agree w/ Assess. and Plan Disposition: Standard PACU
--- NOTE | 2023-12-10 09:27 | MHC.SHP ---
Pre-Procedural Eval Section A - 24 Hr Update-Section A only Date of Service: 12/10/23 The patient is an INPATIENT: No The patient has been examined within 24 hours of the surgical procedure. The History & Physical has been completed within 30 days and I have reviewed it.: No Section B - Complete if H&P > 30 days Chief Complaint: Screening, GERD, abdominal pain and bloating Relevant Family History (Specify if Yes): No Relevant Social History: None Present Medications: see Short Stay Collaborative assessment Medical History: Significant History (Hemorrhoids History of pilonidal cyst Asthma GERD (gastroesophageal reflux disease)) History of Previous Operations: Relevant previous surgery/procedure and date(s) (S/P dilatation and curettage History of hernia surgery Previous section History of excision of pilonidal cyst H/O tubal ligation) Allergies: Allergies Allergy/AdvReac Type Severity Reaction Status Date / Time No Known Allergies Allergy Verified 12/10/23 09:17 [No Known Allergies*] Review of Systems Sugical H&P ROS: Negative: Constitution, Cardiovascular, Respiratory and Gastrointestinal Exam Surgical H&P Exam: Normal: Heart, Normal: Lungs, Normal: Extremities and Normal: Abdomen Plan Diagnosis/Plan: Unchanged I have reviewed the history and physical and performed a pertinent physical examination on my patient. No changes have occurred unless specified. Time Spent With Patient Time: Total time managing care of this patient today ____ minutes.
--- NOTE | 2023-12-10 10:56 | HO.OPN-COLON ---
Colonoscopy Operative Note Operative Note Date of Service: 12/10/23 Narrative: FLEXIBLE TRANSORAL UPPER GASTROINTESTINAL ENDOSCOPY WITH BIOPSIES AND COLONOSCOPY TILL CECUM WITH BIOPSIES Pre-op diagnosis: Colon cancer screening, GERD, abdominal pain and bloating Post-op diagnosis: GERD, Gastritis, Gastric polyp, Diverticulosis, hemorrhoids Endoscopist:? Viet Ocampo MD Anesthesia:?MAC UPPER ENDOSCOPY Consent: Indications for the procedure and potential complications of bleeding, perforation, reaction to medications and missed diagnosis were discussed with the patient and informed consent was obtained. Instrument: Olympus GIF H 190 mid size upper endoscope Monitoring: Vital signs and clinical assessment, continuous EKG monitoring, Pulse oximetry, Carbon Dioxide monitoring and blood pressure monitoring were done throughout the procedure. Procedure: The patient was placed in the left lateral decubitis position and pre-procedure medications were administered and a bite block was placed. The endoscope was inserted into the mouth and advanced under direct vision to the third part of duodenum. A careful inspection was made as the upper endoscope was withdrawn including a retroflexed examination of the proximal stomach; Findings and interventions are described below. Findings: Larynx: Normal Esophagus: GE junction at 40 cms. Mildly tortuous esophagus without esophagitis or Molina's. Stomach: A 7-8 mm benign appearing polyp in the distal body removed with a cold biopsy. Moderate diffuse gastric erythema - biopsies were obtained from the antrum. Grade 2 flap valve on retroflexed examination of the cardia. Duodenum: Normal bulb and descending duodenum Biopsies were obtained from descending duodenum to check for celiac sprue Intervention: Biopsies as noted above COLONOSCOPY PROCEDURE NOTE Instrument: Olympus PCF H 190 L variable stiffness pediatric colonoscope Monitoring: Vital signs and clinical assessment, intermittent blood pressure monitoring, continuous EKG monitoring, Pulse oximetry and Carbon Dioxide monitoring were done throughout the procedure. Please see anesthesia flowsheet. Colon withdrawl time was 11 minutes. Procedure: The patient was placed in the left lateral decubitis position and pre-procedure medications were administered. After a digital rectal examination of the ano-rectum, the video colonoscope was inserted into the rectum and advanced through the colon to the cecum. The colonoscope was slowly withdrawn in a retrograde panoramic fashion and the colon mucosa was carefully examined including a retroflexed view of the rectum. Findings and interventions are described below. Procedure Difficulty: without difficulty Findings: Terminal Ileum: Not evaluated Cecum: Normal Ascending Colon: Normal Transverse Colon: Normal Descending Colon: Normal Sigmoid Colon: Moderate diverticulosis Rectum: Normal Ano-rectum: Moderate internal hemorrhoids Colon preparation: Good after some irrigation. [place] Bowel Preparation Scale Right colon; 2 Transverse colon: 2 Left colon; 2 (0 = Unprepared colon segment with mucosa not seen due to solid stool that cannot be cleared. 1 = Portion of mucosa of the colon segment seen, but other areas of the colon segment not well seen due to staining, residual stool and/or opaque liquid. 2 = Minor amount of residual staining, small fragments of stool and/or opaque liquid, but mucosa of colon segment seen well. 3 = Entire mucosa of colon segment seen well with no residual staining, small fragments of stool or opaque liquid) Impression and Post Procedure Diagnosis: Endoscopy Findings: ESOPHAGUS: Mildly tortuous esophagus without esophagitis or Molina's. STOMACH: Gastritis and benign-appearing gastric polyp DUODENUM: Normal - biopsied to check for celiac sprue Colonoscopy Findings: No polyps were detected Random biopsies were obtained from right and left colon to check for microscopic colitis Moderate diverticulosis seen in the sigmoid colon Moderate hemorrhoids on retroflexed exam. Plan: Pt has a FU appointment on 12/24/23 with Sena Blackwell NP Repeat Colonoscopy in 10 year if biopsies are normal. Above findings were reviewed with the patient and relevant handouts were given and the discharge area. BIOPSIES SHOWED: A. Small bowel, biopsy: Duodenal mucosa with preserved villi and no specific change; no evidence of celiac disease. B. Gastric antrum, biopsy: Gastric antral mucosa with minimal chronic inactive gastritis; negative for H pylori, intestinal metaplasia and dysplasia. C. Gastric polyp, biopsy: Polypoid gastric body mucosa with minimal chronic inactive inflammation; negative for H pylori, intestinal metaplasia and dysplasia. D. Colon, right, biopsy: Colonic mucosa with lymphoid aggregate and no specific change; no evidence of microscopic colitis. E. Colon, left, biopsy: Colonic mucosa with reactive lymphoid follicles, otherwise no specific change; no evidence of microscopic colitis
[2023-12-10 11:22] VITALS: BP 126/71; PULSE 72; RESP 18; TEMP 36.1; O2SAT 99
[2023-12-10 11:35] VITALS: BP 114/69; PULSE 63; RESP 16; O2SAT 98
[2023-12-10 11:50] VITALS: BP 115/79; PULSE 68; RESP 16; TEMP 36.1; O2SAT 97
== END 2023-12-10 12:30 | disposition home or self-care (01) ==
PROVIDERS: PCP Internal Medicine; Visit Provider Internal Medicine Gastroenterology
PROC: (CPT 45380; principal; 2023-12-10 10:10)
DX: Z12.11 Encounter for screening for malignant neoplasm of colon (principal); K57.30 Diverticulosis of large intestine without perforation or abscess without bleeding; K64.8 Other hemorrhoids; K21.9 Gastro-esophageal reflux disease without esophagitis; K29.70 Gastritis, unspecified, without bleeding; K31.7 Polyp of stomach and duodenum; J45.909 Unspecified asthma, uncomplicated
CPT/HCPCS: 45380; 43239; 88305; 88313; 88342; J2704

== ENCOUNTER → 2023-12-10 08:27 | Outpatient (BNV) | payer OTHER, SELFPAY | PROVIDERS: PCP Internal Medicine; Visit Provider Internal Medicine Gastroenterology | DX: Z12.11 Encounter for screening for malignant neoplasm of colon (principal); K57.30 Diverticulosis of large intestine without perforation or abscess without bleeding; K64.8 Other hemorrhoids; K21.9 Gastro-esophageal reflux disease without esophagitis; K29.70 Gastritis, unspecified, without bleeding; K31.7 Polyp of stomach and duodenum | CPT/HCPCS: 43239; 45380 ==

== ENCOUNTER 2023-12-24 07:49 | Outpatient (AMB) | payer OTHER, SELFPAY ==
--- NOTE | 2023-12-24 07:54 | MHC.OFFVIS ---
Vital Signs 12/24/23 07:56 Height 5 ft 3 in Weight 249 lb BMI 44.1 BP 121/62 Blood Pressure Location Lt brachial Position Sitting Pulse 67 Intake Visit Reasons: s/p egd/colon Terrence Intake Note: Patient follow up for EGD/Colonoscopy results. Patient cc: abdominal bloating with constipation after precedures. Denies any other GI issues. 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 Continues to have epigastric pain with occasional dyspepsia. Patient is taking PPI on as needed basis. Will send patient for upper endoscopy to rule out gastritis, duodenitis, esophagitis, gastric peptic ulcers, Molina's, H pylori. Denies any issues with anesthesia in the past.? Denies any history of sleep apnea.? No history infectious diseases in the past or present.? Not on any anticoagulation therapy.? No family or personal history of colon cancer or polyps.? Patient denies melena, hematochezia, unintentional weight loss or ribbon like stools.? Discussed at length the pre-procedure,? prep, diet & medications as well as what to expect prior, during and after the procedure.?? Stressed the importance of good bowel prep. ?Recommended the use of Vaseline or Calmoseptine OTC & baby wipes with bowel movements to promote comfort.? ?Patient verbalizes understanding and agrees to plan of care.? She was given the opportunity to ask questions and all questions answered.? We will see her after the procedure.? Medications New bisacodyl (Dulcolax (bisacodyl)) take 4 tabs at noon the day before your colonoscopy 20 mg (4 x 5 mg) PO ONCE 1 day 4 tabs 0RF Z12.11 polyethylene glycol 3350 (Miralax) As directed by gastroenterology department at [facility] [place] 238 grams PO ONCE 238 grams 0RF Z12.11 UPPER ENDOSCOPY AND COLONOSCOPY Findings: Larynx: Normal Esophagus: GE junction at 40 cms. Mildly tortuous esophagus without esophagitis or Molina's. Stomach: A 7-8 mm benign appearing polyp in the distal body removed with a cold biopsy. Moderate diffuse gastric erythema - biopsies were obtained from the antrum. Grade 2 flap valve on retroflexed examination of the cardia. Duodenum: Normal bulb and descending duodenum Biopsies were obtained from descending duodenum to check for celiac sprue Intervention: Biopsies as noted above COLONOSCOPY PROCEDURE NOTE Instrument: Olympus PCF H 190 L variable stiffness pediatric colonoscope Monitoring: Vital signs and clinical assessment, intermittent blood pressure monitoring, continuous EKG monitoring, Pulse oximetry and Carbon Dioxide monitoring were done throughout the procedure. Please see anesthesia flowsheet. Colon withdrawl time was 11 minutes. Procedure: The patient was placed in the left lateral decubitis position and pre-procedure medications were administered. After a digital rectal examination of the ano-rectum, the video colonoscope was inserted into the rectum and advanced through the colon to the cecum. The colonoscope was slowly withdrawn in a retrograde panoramic fashion and the colon mucosa was carefully examined including a retroflexed view of the rectum. Findings and interventions are described below. Procedure Difficulty: without difficulty Findings: Terminal Ileum: Not evaluated Cecum: Normal Ascending Colon: Normal Transverse Colon: Normal Descending Colon: Normal Sigmoid Colon: Moderate diverticulosis Rectum: Normal Ano-rectum: Moderate internal hemorrhoids Colon preparation: Good after some irrigation. [place] Bowel Preparation Scale Right colon; 2 Transverse colon: 2 Left colon; 2 (0 = Unprepared colon segment with mucosa not seen due to solid stool that cannot be cleared. 1 = Portion of mucosa of the colon segment seen, but other areas of the colon segment not well seen due to staining, residual stool and/or opaque liquid. 2 = Minor amount of residual staining, small fragments of stool and/or opaque liquid, but mucosa of colon segment seen well. 3 = Entire mucosa of colon segment seen well with no residual staining, small fragments of stool or opaque liquid) Impression and Post Procedure Diagnosis: Endoscopy Findings: ESOPHAGUS: Mildly tortuous esophagus without esophagitis or Molina's. STOMACH: Gastritis and benign-appearing gastric polyp DUODENUM: Normal - biopsied to check for celiac sprue Colonoscopy Findings: No polyps were detected Random biopsies were obtained from right and left colon to check for microscopic colitis Moderate diverticulosis seen in the sigmoid colon Moderate hemorrhoids on retroflexed exam. Plan: Repeat Colonoscopy in 10 year if biopsies are normal. Above findings were reviewed with the patient and relevant handouts were given and the discharge area. BIOPSIES SHOWED: A. Small bowel, biopsy: Duodenal mucosa with preserved villi and no specific change; no evidence of celiac disease. B. Gastric antrum, biopsy: Gastric antral mucosa with minimal chronic inactive gastritis; negative for H pylori, intestinal metaplasia and dysplasia. C. Gastric polyp, biopsy: Polypoid gastric body mucosa with minimal chronic inactive inflammation; negative for H pylori, intestinal metaplasia and dysplasia. D. Colon, right, biopsy: Colonic mucosa with lymphoid aggregate and no specific change; no evidence of microscopic colitis. E. Colon, left, biopsy: Colonic mucosa with reactive lymphoid follicles, otherwise no specific change; no evidence of microscopic colitis TODAY'S VISIT Patient is here today for follow-up and to discuss upper endoscopy and colonoscopy results. Patient denies any ill effects from the prep, procedure itself. Patient reports that she has been feeling procedure. Patient admits to bloating after the procedure, however her symptoms have resolved since. Patient reports that she is able to move her bowels without any issues. Patient denies melena, hematochezia. Patient denies dyspepsia, dysphagia or odynophagia patient is taking omeprazole on as needed basis. Reports occasional acid reflux at night time. Upper endoscopy and colonoscopy results discussed with patient. Patient had no polyps and colonoscopy will be repeated in 10 years, sooner if clinically necessary. Moderate diverticulosis found. Upper endoscopy showed mild inactive gastritis [facility] Medical History (Updated 12/24/23 @ 10:08 by Cathy Blackwell, [facility]) Diverticulosis Hemorrhoids History of pilonidal cyst Asthma GERD (gastroesophageal reflux disease) Surgical History S/P dilatation and curettage History of hernia surgery Previous section History of excision of pilonidal cyst H/O tubal ligation Family History Father Chronic mental illness Mother Chronic mental illness Maternal Grandfather Renal cell cancer Social History Housing: House Alcohol intake: never Patient Tobacco Use Status: Never used Tobacco e-Cigarette/Vaping Use: Never Used Second Hand Smoke Exposure: No Current occupational status: employed Cognitive needs: No Hearing needs: No Vision needs: No Review of Systems Const Denies weight gain and Denies weight loss ENT Reports no additional complaints, Denies dysphagia and Denies odynophagia Card Reports no additional complaints Resp Reports no additional complaints GI Denies abdominal pain, Denies belching, Denies melena, Denies bloating, Denies change in bowel habits, Denies dysphagia, Denies excessive flatus, Denies dyspepsia, Denies heartburn, Denies diarrhea, Denies loose stools, Denies nausea, Denies odynophagia and Denies vomiting Musc Reports no additional complaints Neuro Reports no additional complaints Psych Reports no additional complaints Endo Reports no additional complaints Physical Exam Vital Signs: Last Vital Signs Pulse 67 12/24/23 07:56 BP 121/62 12/24/23 07:56 BMI result Body Mass Index 44.1 Const General: healthy appearing and no acute distress Nutritional Appearance: obese Orientation/consciousness: patient oriented x3 Resp Effort & Inspection: normal respiratory effort, able to speak in complete sentences, no tracheal deviation and symmetric chest movement Auscultation: clear to auscultation bilaterally Cardio Rate: regular rate GI Inspection: Yes normal to inspection, No distended and Yes obesity Palpation (GI): Soft to palpation, not firm, nontender and No hepatosplenomegaly present Auscultation: normal bowel sounds General: Yes no CVA tenderness Back/Spine/Pelvis Back: no CVA tenderness Skin General skin exam: elasticity normal, turgor normal and dry skin Neuro General: patient oriented x3 Psych Appearance: grossly normal Mental Status: mental status grossly normal Speech and movement: Normal speech and movement present Affect: normal affect Attitude: cooperative Thought process: Normal thought process present Thought content: Normal thought content present Insight: Good insight present (Psych) Judgement: Good judgement present (Psych) Assessment & Plan Assessment & Plan (1) GERD (gastroesophageal reflux disease): Code(s): K21.9 - Gastro-esophageal reflux disease without esophagitis Category: Medical Qualifiers: Esophagitis presence: esophagitis presence not specified Qualified Code(s): K21.9 - Gastro-esophageal reflux disease without esophagitis (2) Diverticulosis: Code(s): K57.90 - Diverticulosis of intestine, part unspecified, without perforation or abscess without bleeding Category: Medical (3) Status post colonoscopy: Code(s): Z98.890 - Other specified postprocedural states Plan Colonoscopy repeat in 10 years, sooner if clinically necessary. Continue omeprazole daily and famotidine at bedtime. Avoid dietary triggers and late night snacking. Staying upright for minimum 3 hours after meals discussed with patient. Increase fluid intake and activity to promote better bowel motility. Moderate diverticulosis seen, patient will increase fiber in her diet. Patient may take probiotics. Follow-up in the office in 3 months, sooner on as needed basis. Patient is agreeable to this plan and verbalizes understanding of instructions. She was given the opportunity to ask questions and all questions Thank you for allowing me to participate in her care Medications: New famotidine (Pepcid) 20 mg PO BEDTIME 30 tabs 3RF K21.9 - Gastro-esophageal reflux disease without esophagitis Refilled omeprazole 20 mg PO DAILY 90 caps 1RF K21.9 - Gastro-esophageal reflux disease without esophagitis Coding Level of Care Code Est Pt Level 3 (19325) Diagnoses Gastroesophageal reflux disease, unspecified whether esophagitis present K21.9 Esophagitis presence: esophagitis presence not specified Diverticulosis K57.90 Status post colonoscopy Z98.890 Time Spent (min) 30 Comment 20 minutes spent with patient and additional 10 minutes spent reviewing her records
[2023-12-24 07:56] VITALS: BP 121/62; PULSE 67; BMI 44.1
== END 2023-12-24 08:21 | disposition home or self-care (01) ==
PROVIDERS: PCP Internal Medicine; Visit Provider Nurse Practitioner Family
DX: K21.9 Gastro-esophageal reflux disease without esophagitis (principal); K57.90 Diverticulosis of intestine, part unspecified, without perforation or abscess without bleeding; Z98.890 Other specified postprocedural states
CPT/HCPCS: 99213

== ENCOUNTER → 2023-12-24 07:49 | Outpatient (BNVA) | payer OTHER, SELFPAY | PROVIDERS: PCP Internal Medicine; Visit Provider Nurse Practitioner Family ==

== ENCOUNTER 2024-02-14 09:18 | Outpatient (AMB) | payer OTHER, SELFPAY ==
[2024-02-14 09:19] VITALS: BP 122/76; PULSE 76; O2SAT 98; BMI 45.2
--- NOTE | 2024-02-14 09:19 | MHC.PC.OV ---
Vital Signs 02/14/24 09:19 Height 5 ft 3 in Weight 255 lb BMI 45.2 BP 122/76 Blood Pressure Location Lt brachial Position Sitting Pulse 76 Pulse Source Pulse Oximeter Pulse Oximetry (%) 98 Oxygen Delivery Method Room Air Intake Visit Reasons: asthma Allergies No Known Allergies [No Known Allergies*] Allergy (Verified 02/14/24 09:19) Medication List - Last Reconciled 02/14/24 by Iesha East MD albuterol sulfate 90 mcg/actuation (Ventolin HFA) 2 puffs inhalation Q6H PRN budesonide 180 mcg/actuation (Pulmicort Flexhaler) 2 inhalations inhalation BID 30 days cetirizine (Zyrtec) 10 mg PO DAILY diclofenac sodium 1% (Arthritis Pain (diclofenac)) 4 grams topical QID famotidine (Pepcid) 20 mg PO BEDTIME 90 days hydrocortisone-acetic acid 1-2 % 4 drps otic (ear) left Q6H ibuprofen 800 mg PO Q8H PRN 30 days cv-givlkyl-boo-iron fm-FA-vitK 18 mg-400 mcg- 25 mcg (One-A-Day Women's Complete(with vit K)) tabs PO omeprazole 20 mg PO DAILY ondansetron 4 mg PO Q8H PRN Tobacco use date assessed: 07/15/23 Dental Screening Dental Screen Date: 07/15/23 HPI asthma HPI Details 43-year-old morbidly obese female with asthma GERD and right knee osteoarthritis last seen in July 2023. Patient is mammogram is up-to-date April 2023 has had colonoscopy December 2023.. Showing a 7-8 mm polyp in the distal body of the stomach having diffuse gastric erythema. As for the colonoscopy moderate diverticulosis. [facility] Medical History (Updated 02/14/24 @ 09:37 by Iesha East MD) Persistent acute otitis media Colon cancer screening Breast cancer screening by mammogram Upper respiratory tract infection Obesity Diverticulosis Hemorrhoids History of pilonidal cyst Asthma GERD (gastroesophageal reflux disease) Surgical History S/P dilatation and curettage History of hernia surgery Previous section History of excision of pilonidal cyst H/O tubal ligation Family History Father Chronic mental illness Mother Chronic mental illness Maternal Grandfather Renal cell cancer Social History Housing: House Alcohol intake: never Patient Tobacco Use Status: Never used Tobacco Tobacco use type: Cigarette e-Cigarette/Vaping Use: Never Used Second Hand Smoke Exposure: No Current occupational status: employed Cognitive needs: No Hearing needs: No Vision needs: Yes Questionnaire PHQ-9 Over the last 2 weeks, how often have you been bothered by any of the following problems? 1. Little interest or pleasure in doing things: not at all 2. Feeling down, depressed, or hopeless: not at all 3. Trouble falling or staying asleep, or sleeping too much: not at all 4. Feeling tired or having little energy: not at all 5. Poor appetite or overeating: not at all 6. Feeling bad about yourself - or that you are a failure or have let yourself or your family down: not at all 7. Trouble concentrating on things, such as reading the newspaper or watching television: not at all 8. Moving or speaking so slowly that other people could have noticed. Or the opposite - being so fidgety or restless that you have been moving around a lot more than usual: not at all 9. Thoughts that you would be better off or of hurting yourself in some way: not at all Total score: 0 Depression Screening Interpretation: Negative Depression Screening Done: Yes Source: Developed by Drs. Monster Barriga, Brenna Diaz, Milton Hopkins and colleagues, with an educational zi from [employer]. Thrive Questionnaire Date Thrive assessed: 07/15/23 AUDIT C Alcohol Use Questionnaire (AUDIT-C) 1. How often do you have a drink containing alcohol?: Monthly or less 2. How many drinks containing alcohol do you have on a typical day when you are drinking?: 1 or 2 3. How often do you have six or more drinks on one occasion?: Never Total Score: 1 ANIKA-7 AMB Questionnaire ANIKA-7 Date ANIKA - 7 assessed: 07/15/23 Source: Developed by Drs. Monster Barriga, Brenna Diaz, Milton Hopkins and colleagues, with an educational zi from [employer]. Physical exam (Primary Care) Vital Signs: Last Vital Signs Pulse 76 02/14/24 09:19 BP 122/76 02/14/24 09:19 Pulse Ox 98 02/14/24 09:19 Oxygen Delivery Method Room Air 02/14/24 09:19 BMI result Body Mass Index 45.2 Tobacco/Smoking Status: Tobacco use Status Tobacco use date assessed 07/15/23 02/14/24 09:24 Patient Tobacco Use Status Never used Tobacco 02/14/24 09:24 Tobacco use type Cigarette 02/14/24 09:24 e-Cigarette/Vaping Use Never Used 02/14/24 09:24 PHQ-9: PHQ-9 Score PHQ-9: Total score 0 02/14/24 09:27 Depression Screening Interpretation: Negative Thrive Assessment: Date of Thrive Assessment Date Thrive assessed 07/15/23 02/14/24 09:24 Const General: alert; No acute distress Eyes Conjunctivae: conjunctivae normal Resp Auscultation: clear to auscultation bilaterally Cardio Rate: regular rate Rhythm: regular rhythm GI Inspection: Yes normal to inspection Extrem General: Yes normal to inspection and No edema Assessment and Plan Assessment & Plan (1) Morbid obesity due to excess calories: Code(s): E66.01 - Morbid (severe) obesity due to excess calories Plan: Diet and exercise (2) GERD (gastroesophageal reflux disease): Code(s): K21.9 - Gastro-esophageal reflux disease without esophagitis Qualifiers: Esophagitis presence: esophagitis presence not specified Qualified Code(s): K21.9 - Gastro-esophageal reflux disease without esophagitis Plan: Avoid the foods that causes that usually spicy foods, tomato products, juices, coffee, soda and foods that your sensitive to. After eating do not lie down, allow 3-4 hours before in lie down. And keep the head of bed above 30 degrees to avoid the acid from going up. Patient just had an EGD done December 2023 placed on famotidine and omeprazole (3) Asthma: Code(s): J45.909 - Unspecified asthma, uncomplicated Plan: Patient on Pulmicort and albuterol-will prescribe Ventolin (4) Diverticulosis: Code(s): K57.90 - Diverticulosis of intestine, part unspecified, without perforation or abscess without bleeding Plan: Avoid getting constipation. Three rules for constipation 1. Diet need to have a high fiber diet less of meat 2. Increase oral fluids 3. Exercise (5) Joint pain: Code(s): M25.50 - Pain in unspecified joint Plan: Blood work requested for sedimentation rate and C-reactive protein. Discussed about stretching and keeping active. (6) Anemia: Code(s): D64.9 - Anemia, unspecified Plan: Surveillance workup requested. (7) Achilles tendinitis of both lower extremities: Code(s): M76.61 - Achilles tendinitis, right leg; M76.62 - Achilles tendinitis, left leg Plan: Discussed about the cause of ankle movements causing problems. X-ray requested. Orders: Orders Ferritin Today D64.9 - Anemia, unspecified Vitamin D 25-OH Total Today D64.9 - Anemia, unspecified Erythrocyte Sedimentation Rate Today M25.50 - Pain in unspecified joint Vitamin A Today M25.50 - Pain in unspecified joint Hemoglobin A1c Today E66.01 - Morbid (severe) obesity due to excess calories Complete Blood Count Auto Diff Today D64.9 - Anemia, unspecified Reticulocyte Count Today D64.9 - Anemia, unspecified IRON PROFILE Today D64.9 - Anemia, unspecified Vitamin B12 and Folate Today D64.9 - Anemia, unspecified Comprehensive Met. Panel Today D64.9 - Anemia, unspecified C Reactive Protein Today M25.50 - Pain in unspecified joint Thyroid Stimulating Hormone Today M25.50 - Pain in unspecified joint Free T4 (Free Thyroxine) Today M25.50 - Pain in unspecified joint XR ankle LT 2V Today M76.61 - Achilles tendinitis, right leg, M76.62 - Achilles tendinitis, left leg XR ankle RT 2V Today M76.61 - Achilles tendinitis, right leg, M76.62 - Achilles tendinitis, left leg Medications: New albuterol sulfate 90 mcg/actuation (Ventolin HFA) 2 puffs inhalation Q6H PRN 8.5 grams 0RF shortness of breath or wheezing M76.61 - Achilles tendinitis, right leg, M76.62 - Achilles tendinitis, left leg Discontinued albuterol sulfate 90 mcg/actuation Discontinued Reason: Insurance Denied 2 puffs inhalation Q6H PRN 8.5 grams 3RF shortness of breath or wheezing J45.909 - Unspecified asthma, uncomplicated Coding Level of Care Code Est Pt Level 4 (41093) Diagnoses Morbid obesity due to excess calories E66.01 Gastroesophageal reflux disease, unspecified whether esophagitis present K21.9 Esophagitis presence: esophagitis presence not specified Asthma J45.909 Diverticulosis K57.90 Joint pain M25.50 Anemia D64.9 Achilles tendinitis of both lower extremities M76.61; M76.62
== END 2024-02-14 09:46 | disposition home or self-care (01) ==
PROVIDERS: PCP Internal Medicine; Visit Provider Internal Medicine
DX: K21.9 Gastro-esophageal reflux disease without esophagitis (principal); E66.01 Morbid (severe) obesity due to excess calories; Z68.42 Body mass index [BMI] 45.0-49.9, adult; J45.909 Unspecified asthma, uncomplicated; K57.90 Diverticulosis of intestine, part unspecified, without perforation or abscess without bleeding; M25.50 Pain in unspecified joint; D64.9 Anemia, unspecified; M76.61 Achilles tendinitis, right leg; M76.62 Achilles tendinitis, left leg
CPT/HCPCS: 99214

== ENCOUNTER 2024-02-14 10:12 | Outpatient (REF) | payer OTHER, SELFPAY ==
--- NOTE | ~2024-02-14 | XR_ITS ---
EXAMINATION: XR ANKLE, RIGHT CLINICAL INFORMATION: Achilles tendinitis COMPARISON: None available. TECHNIQUE: AP, lateral, and mortise views of the right ankle. FINDINGS: No acute osseous abnormality. Small posterior calcaneal enthesophyte. Small heel spur. The ankle mortise is preserved. XR/XR ankle RT 2V IMPRESSION: Small heel spur and posterior calcaneal enthesophyte. Electronically signed by: Dell Ortega MD 02/27/2024 11:15 AM EDT
--- NOTE | ~2024-02-14 | XR_ITS ---
EXAMINATION: XR ANKLE, LEFT CLINICAL INFORMATION: Achilles tendinitis. COMPARISON: None available. TECHNIQUE: AP, lateral, and mortise views of the left ankle. FINDINGS: Bony alignment and mineralization are normal. The ankle mortise is intact. No fracture, dislocation or left ankle joint effusion is seen. Bohler's angle is normal. There is a moderate posterior calcaneal spur. There is mild generalized soft tissue swelling. No subcutaneous gas or foreign body is seen. XR/XR ankle LT 2V IMPRESSION: 1. There is a moderate posterior calcaneal spur. 2. There is mild generalized soft tissue swelling. 3. No fracture or dislocation is seen. Electronically signed by: Travis Ortiz MD 03/14/2024 08:58 AM EDT
[2024-02-14 10:28] LABS: MANUAL DIFF FLAG NO
[2024-02-14 11:09] LABS: Basophils Percent Auto 0.6 % (0-2); Eosinophils Absolute Auto 0.3 X10*3/uL (0.0-0.4); Eosinophils Percent Auto 3.7 % (0-4); Hematocrit 36.9 % (37.0-47.0); Hemoglobin 11.8 g/dl (12.0-16.0); Imm Gran Abs Auto 0.03 X10*3/uL (0.00-0.03); Imm Gran Pct Auto 0.4 % (0.0-0.4); Immature Retic Fraction 19.9 % (3.0-15.9); Lymphocytes Absolute Auto 2.1 X10*3/uL (1.2-4.9); Lymphocytes Percent Auto 28.7 % (20-40); Mean Corpuscular Hemoglobin 26.8 pg (27.0-33.0); Mean Corpuscular Volume 83.9 fL (80.0-98.0); Mean Platelet Volume 9.9 fL (9.4-12.3); Monocytes Absolute Auto 0.5 X10*3/uL (0.1-1.2); Monocytes Percent Auto 7.1 % (2-11); Neutrophils Absolute Auto 4.3 x10*3/uL (2.0-8.3); Neutrophils Percent Auto 59.5 % (45-73); Platelet Count 361 X10*3/uL (160-400); Red Cell Distribution Width 14.5 % (11.0-16.0); Retic HGB Equivalent 28.9 pg (30.0-35.0); Reticulocyte Percent 1.7 % (0.5-1.8); Reticulocytes Absolute 0.075 X10*6/uL (0.026-0.095); White Blood Count 7.2 X10*3/uL (4.8-10.8)
[2024-02-14 11:16] LABS: Estimated Average Glucose 103 mg/dL; Hemoglobin A1c % 5.2 % (<6.0)
[2024-02-14 11:46] LABS: Erythrocyte Sedimentation Rate 29 MM/HR (0-20)
[2024-02-14 12:03] LABS: Alanine Aminotransferase 17 U/L (0-31); Albumin Level 4.1 g/dL (3.5-5.0); Alkaline Phosphatase 92 U/L (39-117); Anion Gap 12 (12-20); Aspartate Amino Transferase 16 U/L (5-31); Bilirubin Total 0.3 mg/dL (0.0-1.0); Blood Urea Nitrogen 19 mg/dL (9-16); C Reactive Protein 2.98 mg/dL (< or = 0.50); Calcium 9.4 mg/dL (8.4-10.2); Carbon Dioxide 25 mmol/L (22-29); Chloride 108 mmol/L (96-108); Estimated Glomerular Filt Rate > 60; Glucose Random 101 mg/dL (60-115); Iron 43 mcg/dL (30-160); Percent Iron Saturation 15 % (15-50); Potassium 4.2 mmol/L (3.3-5.1); Sodium 141 mmol/L (135-145); Total Iron Binding Capacity 281 mcg/dL (228-428); Total Protein 7.7 g/dL (6.5-8.0); Unsaturated Iron Binding 238 ug/dL
[2024-02-14 12:25] LABS: Folate 8.5 ng/mL (> or = 4.0); Vitamin B12 476 pg/mL (200-900)
[2024-02-14 12:27] LABS: Ferritin 23 ng/mL (10-250); Free T4 (Free Thyroxine) 0.95 ng/dL (0.71-1.85); Thyroid Stimulating Hormone 2.18 uIU/mL (0.32-4.0); Vitamin D 25-OH Total 24.5 ng/mL (>30)
[2024-02-17 02:14] LABS: Vitamin A 36 mcg/dL (38-98)
== END 2024-02-14 10:13 | disposition home or self-care (01) ==
LOC: HO.XRAY 10:12
PROVIDERS: PCP Internal Medicine; Visit Provider Internal Medicine
DX: M76.71 Peroneal tendinitis, right leg (principal); M76.72 Peroneal tendinitis, left leg; D64.9 Anemia, unspecified; M25.50 Pain in unspecified joint; E66.01 Morbid (severe) obesity due to excess calories; Z13.1 Encounter for screening for diabetes mellitus
CPT/HCPCS: 36415; 73600; 80053; 82306; 82607; 82728; 82746; 83036; 83540; 84439; 84443; 84590; 85025; 85045; 85652; 86140

== ENCOUNTER 2024-03-31 08:03 | Outpatient (AMB) | payer OTHER, SELFPAY ==
[2024-03-31 08:07] VITALS: BP 114/64; PULSE 78; O2SAT 97; BMI 45.2
--- NOTE | 2024-03-31 08:07 | A.OFFVIS_ITS ---
Vital Signs 03/31/24 08:07 Height 5 ft 3 in Weight 255 lb 4.725 oz BMI 45.2 BP 114/64 Blood Pressure Location Rt brachial Position Sitting Pulse 78 Pulse Source Pulse Oximeter Pulse Oximetry (%) 97 Oxygen Delivery Method Room Air Intake Visit Reasons: 3 month follow up Intake Note: Maria D presents in office today for a scheduled 3 mos FUV. CC: Pt was rx'd omeprazole at their last visit. This is a refill of this medication. No lab orders placed. Pt reports that they are doing well since their last visit. However, they have stopped taking the omeprazole due to concerns with moderate constipation and possible hemorrhoids due to hematochezia. Pt does report however, despite stopping the medication, that they are doing well and not having any breakthrough sx. 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 Continue omeprazole daily and famotidine at bedtime. Avoid dietary triggers and late night snacking. Staying upright for minimum 3 hours after meals discussed with patient. Increase fluid intake and activity to promote better bowel motility. Moderate diverticulosis seen, patient will increase fiber in her diet. Patient may take probiotics. Follow-up in the office in 3 months, sooner on as needed basis. Patient is agreeable to this plan and verbalizes understanding of instructions. She was given the opportunity to ask questions and all questions ? Thank you for allowing me to participate in her care Medications New famotidine (Pepcid) 20 mg PO BEDTIME 30 tabs 3RF K21.9 Refilled omeprazole 20 mg PO DAILY 90 caps 1RF K21.9 TODAY'S VISIT: Patient is here today for follow-up. Patient reports that she has been feeling well. Patient however reports that she was taking omeprazole and it was making her very constipated. Patient stopped taking it and changed her diet. Patient no longer is eating spicy food. Patient is avoiding that is fried. Patient is drinking more water, taking pre and probiotics. Patient denies dyspepsia, dysphagia or odynophagia. Denies melena, hematochezia, unintentional weight loss or ribbon like stools PFSH Medical History Persistent acute otitis media Colon cancer screening Breast cancer screening by mammogram Upper respiratory tract infection Obesity Diverticulosis Hemorrhoids History of pilonidal cyst Asthma GERD (gastroesophageal reflux disease) Surgical History S/P dilatation and curettage History of hernia surgery Previous section History of excision of pilonidal cyst H/O tubal ligation Family History Father Chronic mental illness Mother Chronic mental illness Maternal Grandfather Renal cell cancer Social History Housing: House Alcohol intake: never Patient Tobacco Use Status: Never used Tobacco Tobacco use type: Cigarette e-Cigarette/Vaping Use: Never Used Second Hand Smoke Exposure: No Current occupational status: employed Cognitive needs: No Hearing needs: No Vision needs: Yes Review of Systems Const Denies weight gain and Denies weight loss ENT Reports no additional complaints, Denies dysphagia and Denies odynophagia Card Reports no additional complaints Resp Reports no additional complaints GI Denies abdominal pain, Denies belching, Denies melena, Denies bloating, Denies change in bowel habits, Denies dysphagia, Denies excessive flatus, Denies dyspepsia, Denies heartburn, Denies diarrhea, Denies loose stools, Denies nausea, Denies odynophagia and Denies vomiting Musc Reports no additional complaints Neuro Reports no additional complaints Psych Reports no additional complaints Endo Reports no additional complaints Physical Exam Vital Signs: Last Vital Signs Pulse 78 03/31/24 08:07 BP 114/64 03/31/24 08:07 Pulse Ox 97 03/31/24 08:07 Oxygen Delivery Method Room Air 03/31/24 08:07 BMI result Body Mass Index 45.2 Const General: healthy appearing and no acute distress Nutritional Appearance: obese Orientation/consciousness: patient oriented x3 Resp Effort & Inspection: normal respiratory effort, able to speak in complete sentences, no tracheal deviation and symmetric chest movement Auscultation: clear to auscultation bilaterally Cardio Rate: regular rate GI Inspection: Yes normal to inspection, No distended and Yes obesity Palpation (GI): Soft to palpation, not firm, nontender and No hepatosplenomegaly present Auscultation: normal bowel sounds General: Yes no CVA tenderness Back/Spine/Pelvis Back: no CVA tenderness Skin General skin exam: elasticity normal, turgor normal and dry skin Neuro General: patient oriented x3 Psych Appearance: grossly normal Mental Status: mental status grossly normal Speech and movement: Normal speech and movement present Affect: normal affect Attitude: cooperative Thought process: Normal thought process present Thought content: Normal thought content present Insight: Good insight present (Psych) Judgement: Good judgement present (Psych) Assessment & Plan Assessment & Plan (1) Diverticulosis: Code(s): K57.90 - Diverticulosis of intestine, part unspecified, without perforation or abscess without bleeding Category: Medical (2) GERD (gastroesophageal reflux disease): Code(s): K21.9 - Gastro-esophageal reflux disease without esophagitis Category: Medical Qualifiers: Esophagitis presence: esophagitis presence not specified Qualified Co de(s): K21.9 - Gastro-esophageal reflux disease without esophagitis Plan Patient will avoid dietary triggers and late night snacking staying upright for minimum 3 hours after meals discussed with patient. Patient will follow-up on as needed basis. Colonoscopy in 10 years, sooner if clinically necessary. Patient is agreeable to current plan of care and verbalizes understanding of instructions. She was given the opportunity to ask questions and all questions answered. Thank you for allowing me to participate in her care Coding Level of Care Code Est Pt Level 3 (11806) Diagnoses Diverticulosis K57.90 Gastroesophageal reflux disease, unspecified whether esophagitis present K21.9 Esophagitis presence: esophagitis presence not specified Time Spent (min) 25 Comment 15 minutes spent with patient and additional 10 minutes spent reviewing her records
== END 2024-03-31 08:39 | disposition home or self-care (01) ==
PROVIDERS: PCP Internal Medicine; Visit Provider Nurse Practitioner Family
DX: K57.90 Diverticulosis of intestine, part unspecified, without perforation or abscess without bleeding (principal); K21.9 Gastro-esophageal reflux disease without esophagitis
CPT/HCPCS: 99213

== ENCOUNTER → 2024-03-31 08:03 | Outpatient (BNVA) | payer OTHER, SELFPAY | PROVIDERS: PCP Internal Medicine; Visit Provider Nurse Practitioner Family ==

== ENCOUNTER 2024-04-10 08:03 | Outpatient (AMB) | payer OTHER, SELFPAY ==
--- NOTE | 2024-04-10 08:08 | AM.OFFWIN_ITS ---
Intake Vital Signs 04/10/24 08:13 Weight 156 lb BP 120/84 Blood Pressure Location Lt brachial Pulse 75 Pulse Source Pulse Oximeter Pulse Oximetry (%) 98 Oxygen Delivery Method Room Air Intake Visit Reasons: EP pain and pressure on left eye Intake Note: Patient here for left eye swelling that started Yesterday, she states she has some discharge. Patient Tobacco Use Status: Never used Tobacco Allergies No Known Allergies [No Known Allergies*] Allergy (Verified 04/10/24 08:11) Do you need a note to return to daycare/school/sports/work: Yes HPI EP pain and pressure on left eye HPI Details This note is constructed using voice recognition software. While every effort has been made to ensure accuracy, user experience analyst errors may have been included. The patient is a 44 year old female who presents to the clinic today with left eye feeling like it swelling with yellow-green discharge since this morning. She has some discomfort that feels like a stye in the lower lid, no itch. She is not a contact wearer. She denies fever, chills, cough, shortness of breath. She denies any changes to her vision or pain with moving her eye. [facility] Medical History Persistent acute otitis media Colon cancer screening Breast cancer screening by mammogram Upper respiratory tract infection Obesity Diverticulosis Hemorrhoids History of pilonidal cyst Asthma GERD (gastroesophageal reflux disease) Surgical History S/P dilatation and curettage History of hernia surgery Previous section History of excision of pilonidal cyst H/O tubal ligation Family History Father Chronic mental illness Mother Chronic mental illness Maternal Grandfather Renal cell cancer Social History Housing: House Alcohol intake: never Patient Tobacco Use Status: Never used Tobacco Tobacco use type: Cigarette e-Cigarette/Vaping Use: Never Used Second Hand Smoke Exposure: No Current occupational status: employed Cognitive needs: No Hearing needs: No Vision needs: Yes Review of Systems Const All systems reviewed & are unremarkable except as noted in HPI and below Physical Exam Vital Signs: Last Vital Signs Pulse 75 04/10/24 08:13 BP 120/84 04/10/24 08:13 Pulse Ox 98 04/10/24 08:13 Oxygen Delivery Method Room Air 04/10/24 08:13 Const General: cooperative, healthy appearing, comfortable, no acute distress and well developed Orientation/consciousness: patient oriented x3 Limitations: no limitations Eyes Alignment and Position: alignment normal Eyelids: Yes eyelids normal Conjunctivae: conjunctival abnormal left conjunctival injection (Slight) and discharge (Minimal) purulent Pupils: Equal, round and reactive pupils present EOM: EOMs intact bilaterally Resp Effort & Inspection: normal respiratory effort and able to speak in complete sentences Neuro General: patient oriented x3 Cranial nerves: Yes Equal, round and reactive pupils present Assessment & Plan Assessment & Plan (1) Conjunctivitis: Code(s): H10.9 - Unspecified conjunctivitis Qualifiers: Conjunctivitis type: acute Acute conjunctivitis type: bacterial Laterality: left Qualified Code(s): H10.32 - Unspecified acute conjunctivitis, left eye Plan: Antibiotic ointment sent to requested pharmacy. Advised patient to avoid contact with others during treatment. Advised follow up with worsening or failure to resolve. Plan See above for full details and plan. Medications: New erythromycin 0.5 inches ophthalmic (eye) TID 7 days 3.5 grams 0RF Coding Level of Care Code Est Pt Level 3 (14385) Diagnoses Acute bacterial conjunctivitis of left eye H10.32 Conjunctivitis type: acute Acute conjunctivitis type: bacterial Laterality: left
[2024-04-10 08:13] VITALS: BP 120/84; PULSE 75; O2SAT 98
== END 2024-04-10 08:36 | disposition home or self-care (01) ==
PROVIDERS: PCP Internal Medicine; Visit Provider Registered Nurse
DX: H10.32 Unspecified acute conjunctivitis, left eye (principal)

== ENCOUNTER → 2024-04-10 08:03 | Outpatient (BNVA) | payer OTHER, SELFPAY | PROVIDERS: PCP Internal Medicine; Visit Provider Registered Nurse ==

== ENCOUNTER 2024-10-28 12:12 | Outpatient (AMB) | payer OTHER, SELFPAY ==
--- OUTSIDE RECORDS SUMMARY | 2024-10-28 12:14 | XMS_ITS ---
Author Name [facility] Organization Unknown Care Team Organization Name Specialty Phone Email Start Date End [id number]
--- OUTSIDE RECORDS SUMMARY | 2024-10-28 12:14 | XMS_ITS | Data Portability ---
Author Organization [facility] Address [address] [place] [address] Care Team Providers Care Contract Loader Name Role Phone RACHEL HORTENSIAYARA Primary Care Provider [phone] Assessment No assessment recorded. Plan of Treatment Reminders Order Date Submit Date Provider Last Modified By Organization Details Last Modified Time Details Appointments None recorded. Lab None recorded. Referral None recorded. Procedures None recorded. Surgeries None recorded. Imaging None recorded. Medication Orders amoxicillin 875 mg-potassiu m clavulanate 125 mg tablet 2021 022 [facility] #[id number], [address] [place], [address], 16:33:22 benzonatate 200 mg capsule 2021 022 [facility] #[id number], [address] [place], [address], 16:33:23 prednisone 10 mg tablet 2021 022 [id number], [address] [place], [address], 16:33:23 Patient TargetsNo targets recorded. Patient Instructions Encounter Date Encounter Id Patient Instructions Last Modified By Organization Details Last Modified Time 06/07/2022 [id number] bronchitis: care instructions [email or web address] Not available 06/07/2022 16:33:20 Based on your presentation and exam, you are being diagnosed with Sinusitis/Bronchiti s. Rhinosinusitis is most often viral and will resolve on its own in 7-10 days. Symptoms that last longer than 2 weeks an antibiotic could be considered. Based on your presentation, and antibiotic was written. As we discussed I am concerned about that late expiratory wheezing - indicating your little airways are affected - the antibiotic that I prescribe would cover for pneumonia - but currently - it does not sound like that. Please make sure you continue to use your albuterol and nebulizer. The following are my recommendations to help your symptoms and to allow your condition to improve: 1. Drink plenty of fluids while you are ill- stay hydrated 2. Rest - don't overexert yourself - this includes sports and any gym routines. 3. Continue the Zyrtec that you take daily. 4. Saline Nasal [place] is recommended. 5. Salt Water Gargles. 6. Do not take the Ibuprofen with the Prednisone but you can take the Tylenol. Since an antibiotic was prescribed you need to complete the full course - this is important so you don't develop any antibiotic resistance to future infections. I advise taking a Probiotic like Florastor since you are on an antibiotic - this will help you re-colonize your body with the good bacteria. Typically, it will take 6 months for you to restore your normal body noreen after an antibiotic. You were prescribed Prednisone - Here is some general Information regarding this medication. 1. Make sure you take with Food 2. Do not take right before bedtime -this should be taken during the day because it may make you a little more wired. May keep you from sleeping. 3. Prednisone will increase glucose -so if you are a diabetic then you will need to monitor your glucose closely. Please d/c if glucose goes above 300. 4. Do not take this medication with Ibuprofen Don't hesitate to be seen again if you develop: 1. Fever > 100.5 2. Worsening Headache 3. Stiff Neck 4. Worsening Cough or Shortness of breath 5. Visual Changes. The antibiotic should start to work in 4-5 days. You may not notice immediate response. Thank you for using [employer] today, please feel free to contact our office if you have any questions or concerns. [email or web address] Not available 06/07/2022 16:32:58 Reason for Referral None Reported. Problems Name Problem SNOMED Code Status Onset Date Resolution Date Notes Provider Name and Address Organization Details Recorded Time Asthma 220676326 Active RHNODA Woodruff - [facility] 06/07/2022 15:51:35 Problem Notes None recorded. Procedures Surgical History Date Name Laterality Status Provider Name and Address Organization Details Recorded Time section completed ARIANNA SMITH PA - [facility] 06/07/2022 15:52:01 hernia repair completed ARIANNA SMITH PA - [facility] 06/07/2022 15:52:12 Imaging Results None recorded. Procedure Notes None recorded. Medical Equipment None Reported. Allergies No known drug allergies Medications Name Sig Start Date Stop Date Status Note LastModified by Organization Details LastModified Time prednisone 10 mg tablet TAKE 3 TABS BY MOUTH EVERY DAY FOR 3 DAYS 2 TABS X 3 DAYS 1 TAB X 3 DAYS active Not Available Not Available No t Available azithromyci n 250 mg tablet TAKE 2 TABLETS BY MOUTH TODAY, THEN TAKE 1 TABLET DAILY FOR 4 DAYS 06/07 completed Not Available Not Available Not Available benzonatate 200 mg capsule TAKE 1 CAPSULE BY MOUTH THREE TIMES A DAY active Not Available Not Available No t Available montelukast 10 mg tablet TAKE 1 TABLET BY MOUTH AT BEDTIME 06/07 completed Not Available Not Available Not Available albuterol sulfate HFA 90 mcg/actuati on aerosol inhaler INHALE 2 PUFFS EVERY 6 HOURS NEEDED FOR SHORTNESS OF BREATH OR WHEEZING active Not Available Not Available No t Available amoxicillin 875 mg-potassiu m clavulanate 125 mg tablet TAKE 1 TABLET BY MOUTH EVERY 12 HOURS FOR 7 DAYS active Not Available Not Available No t Available Flovent HFA 110 mcg/actuati on aerosol inhaler INHALE 2 PUFFS BY MOUTH TWICE A DAY active Not Available Not Available No t Available Zyrtec active Not Available Not Availa ble Not Available BinaxNOW COVID-19 Ag Self Test kit TEST DIRECTED TODAY active Not Available Not Available No t Available Vitals Date Recorded Body height Body mass index (BMI) Body weight Pain severity - 0-10 verbal numeric rating [Score] - Reported Oxygen saturation Oxygen saturation in Arterial blood by Pulse oximetry Heart rate Respiratory rate Body temperature Systolic blood pressure Diastolic blood pressure Provider Name and Address Organization Details Last Updated DateTime 160.02 cm 44.8 kg/m2 854910. 87 g 0 98 % 98 % 72 /min 17 /min 97.8 [degF] 121 mm[Hg] 63 mm[Hg] ARIANNA TERA CACERES PA - [facility] 15:56:14 Social History Question Answer Notes LastModified by Organizat ion Details LastModified Time Tobacco Smoking Status Never Smoker ARIANNA RHONDA Zeng - [facility] 06/07/2022 15:51:46 What Is Your Level Of Alcohol Consumption? None Information not available 06/07/2022 Have You Had Direct Contact, Or Contact During Intimacy, With Monkeypox Rash, Scabs, Or Body Fluids From A Person With Monkeypox? No Information not available 06/07/2022 Do You Use Any Illicit Or Recreational Drugs? No Information not available 06/07/2022 Have You Recently Traveled Abroad? No Information not available 06/07/2022 Do You Or Have You Ever Used Any Other Forms Of Tobacco Or Nicotine? No Information not available 06/07/2022 Sex: Unknown Functional Status None recorded. Mental Status None recorded. Family History Relationship Description Onset Age of this Age Resolved Age Notes LastModified by Organization Details LastModified Time Father No current problems or disability Not available 15:51:37 Mother No current problems or disability Not available 15:51:37 Medical History No medical history recorded. Gynecological History Statement/Question Response Current Control Method Tubal Ligat ion Date of LMP 05/26/2022 Obstetrics History GPAL:G 0 P 0 0 0 0 Past Encounters Encounter ID Performer Location Encounter Start Date Encounter Closed Date Diagnosis/Indication Diagnosis SNOMED-CT Code Diagnosis ICD10 Code Diagnosis Note [id number] [address] [place] [address] 09/07/2017 11:51:29 09/07/2017 13:08:50 [id number] [address] [place] [address] 08/06/2020 17:22:59 08/06/2020 18:38:23 [id number] RHONDA KHANNA [address] [place] [address] 06/07/2022 14:47:23 06/07/2022 16:34:11 Exacerbation of intermittent asthma 269247395 J45.21 Acute sinusitis 02695452 J01.90 Health Concerns Section Related Observation LastModified by Organization Detai ls LastModified Time None Recorded Concern Status LastModified by Organization Details LastModified Time None Recorded Advance Directives Directive None Recorded Payers Encounter Date Sequence Insurance Name Policy Number Policy Ahumada Covered Member ID Ahumada Member ID Guarantor Name 09/07/2017 1 [facility] [employer] [facility] (O) [id number] Maria D Russo [id number] Maria D Russo 08/06/2020 1 [facility] [employer] [facility] (O) [id number] Maria D Russo [id number] Maria D Russo 06/07/[address] [place] [address] Maria D Russo [id number] Maria D Russo Notes Date Note Type Note Provider Name and Address Organization Details Recorded Time 06/07/2022 text/html CoughReported bypatient.Quality:p roductive cough Severity:worsening; moderate Duration:10 days Timing:worsening; gradual Context:non-smoker; history of asthma Modifying Factors:Cough Supprressant; Lying down; Patient uses nebulizer with some relief - has done 2 treatments Associated Symptoms:no fever; no chest pain; no heartburn; no nausea; no vomiting;chills;whe ezing;post nasal dripNotes:The patient took several COVID tests all negative. The patient reports cough is constant. The patient is wheezing worse at night - denies any significant shortness of breath. Mild facial pressure. The patient reports mild headache and ear pressure as well. No fever. Taking Delsym for the cough. RHONDA KHANNA [address] [place], [address], [place] - [facility] 06/07/2022 16:38:15 OBGyn Episode No OBEpisode recorded.
--- OUTSIDE RECORDS SUMMARY | 2024-10-28 12:15 | XMS_ITS ---
Author Organization [facility] Address [address] [place] [address] Care Team Providers Care Clean Energy Policy Analyst Name Role Phone JEFFREY RAMOS M.D. Primary Care Provider GRACE Fletcher Unavailable [phone] REASON FOR VISIT appointment confirmation. Encounters Encounter Location Date Provider Diagnosis [facility] [place] [address] [address] 04/03/2024 GRACE SANCHEZ Plan Of Treatment Next Appt Details Provider Name:GRACE Ferrer, 04/13/2025 09:40:00 AM, [address] [place] [address], [place], [address], Progress Notes * FAINA CLOUDDOB: [birth year] (44 yo F)Acc No.[id number]:04/03/2024 Patient:?FAINA CLOUD :1980???Age:44 Y???Sex:Female Address:[address] [place] [address], [address] * true * Date:? Generated for Lashoni la/Emery/eTransmitting on:?10/28/2024 12:14 PM EDT
--- OUTSIDE RECORDS SUMMARY | 2024-10-28 12:15 | XMS_ITS ---
Author Organization [facility] Address [address] [address] Care Team Providers Care Hepatologist Name Role Phone JEFFREY RAMOS M.D. Primary Care Provider Unavaila david GRACE SANCHEZ Unavailable [phone] Allergies No Known Allergies Results Component Value Reference Range Notes Test, Urine Reviewed date:04/04/2024 11:37:17 AM Interpretation: Performing Lab: Notes/Report: Test, Urine NEG CBC, Platelet, No Differenti [id number] Reviewed date:04/06/2024 02:01:58 PM Interpretation: Performing Lab:[facility], [address] [place] [address], [place], Phone - [phone], Director - [place] Notes/Report: WBC 8.9 3.4-10.8 x10E3/uL RBC 3.69 3.77-5.28 x10E6/uL Hemoglobin 9.9 11.1-15.9 g/dL Hematocrit 31.7 34.0-46.6 % MCV 86 79-97 fL MCH 26.8 26.6-33.0 pg MCHC 31.2 31.5-35.7 g/dL RDW 14.0 11.7-15.4 % Platelets 420 150-450 x10E3/uL REASON FOR VISIT Annual 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 Physical Medications Medication SIG (Take, Route, Frequency, Duration) Notes Start Date End Date Status Pulmicort Flexhaler 180 MCG/ACT Inhalation for 30 Days Activ e Aygestin 5 MG 1 tablet Orally q 4h rs-d1, x6ljr-x8, j3nkp-k7, then twice a day for 14 days 04/04/2024 Active Flovent HFA Active ProAir HFA 108 (90 Base) MCG/ACT 2 puffs as needed Inhalation prn Active ZyrTEC Allergy Activ e Social History Tobacco Use: Social History Observation Description Date Details (start date - stop date) Never Smoker NA - NA Tobacco Use/Smoking Question Answer Notes Are you a nonsmoker Alcohol Screen (Audit-C) Question Answer Notes Did you have a drink containing alcohol in the p ast year? No Points 0 Interpretation Negative Sexual History Question Answer Notes Had sex in the past 12 months (vaginal, oral, or anal)? Yes with Men only Prevention strategies discussed: Other Problems Problem Type SNOMED Code ICD Code Onset Dates Problem Status W/U Status Risk Notes Problem COVID-19 (065509087) COVID-19 (U07.1) Active confirmed Vital Signs Temperature 98.0 degrees Fahrenheit 04/04/20 24 Blood pressure systolic 110 mm Hg 04/04/20 24 Blood pressure diastolic 80 mm Hg 024 Height 63.00 in 04/04/2024 Weight 252 lbs 04/04/2024 BMI 44.63 kg/m2 04/04/2024 Encounters Encounter Location Date Provider Diagnosis [address] [place] [address] 04/04/2024 GRACE SANCHEZ Encounter for gynecological examination (general) (routine) without abnormal findings Z01.419 ; Encounter for screening mammogram for malignant neoplasm of breast Z12.31 and Other specified abnormal uterine and vaginal bleeding N93.8 Assessments Encounter Date Diagnosis (ICD Code) Assessment Notes Treatment Notes Treatment Clinical Notes Section Notes 04/04/2024 Encounter for gynecological examination (general) (routine) without abnormal findings (ICD-10 - Z01.419) During the visit, the following areas of concern were addressed: Discussed cervical cancer screening with either cytology alone every 3 years or high risk HPV co-testing every 5 years as per ASCCP guidelines. Advised continued annual pelvic exams. Patient encouraged to increase her level of exercise. SBE technique encouraged/taugh t. Patient reminded when annual mammogram is due. Patient encouraged to keep colon screening up to date. 04/04/2024 Encounter for screening mammogram for malignant neoplasm of breast (ICD-10 - Z12.31) 04/04/2024 Other specified abnormal uterine and vaginal bleeding (ICD-10 - N93.8) LIkely anovulatory cycle - will prescribe a progesterone withdrawal and monitor. If abnormal bleeding continues, then will need re-evaluation. Plan Of Treatment Medication Medication Name Sig Start Date Stop Date Notes Aygestin 5 MG 1 tablet Orally q 4h rs-d1, c1dox-a6, i9pow-y5, then twice a day for 14 days 04/04/2024 Treatment Notes Assessment Notes Encounter for gynecological examination (general) (routine) without abnormal findings During the visit, the following areas of concern were addressed: Discussed cervical cancer screening with either cytology alone every 3 years or high risk HPV co-testing every 5 years as per ASCCP guidelines. Advised continued annual pelvic exams. Patient encouraged to increase her level of exercise. SBE technique encouraged/taught. Patient reminded when annual mammogram is due. Patient encouraged to keep colon screening up to date. Other specified abnormal [place] rine and vaginal bleeding LIkely anovulatory cycle - will prescrib e a progesterone withdrawal and monitor. If abnormal bleeding continues, then will need re-evaluation. Pending Test Test Name Order Date MM Digital Screening Mammogram 3D 2023 Next Appt Details Follow Up: 1 Year, Reason: Y early Chief Analytics Officer Exam Provider Name:GRACE Ferrer, 04/13/2025 09:40:00 AM, [address] [facility], [address], [place], [address], Progress Notes * FAINA CLOUDDOB: [birth year] (44 yo F)Acc No.[id number]:04/04/2024 PROGRESS NOTES Patient:?FAINA CLOUD Provider:?GRACE SANCHEZ MD :1980???Age:44 Y???Sex:Female D ate:04/04/2024 Address:[address] [place], [place] [id number] Pcp:JEFFREY RAMOS M.D. Subjective: * Chief Complaints: * ??? Annual TIRE CURER Physical * HPI: ???Constitutional:? 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 She has been in state of good health since her last exam. She has the following concerns: she has been bleeding for the last 21 days She has received the Pfizer Covid-19 vaccine. Relationship status: for 25 years. She is sexually active. Sexual partner(s): male. She does not wish to have STI testing. Menses: monthly, lasting 6-7 days. 2 months ago - she had a period early and then late in the month, then no bleeding last month, then this month the bleeding started 03/15/24 and continues - the flow has been moderate to heavy for the duration. She is changing a pad about 4-5 times daily. She has had a couple of times where she bled through her bedclothes. Contraception: tubal ligation She does not report vaginal dryness. She does not have hot flashes/night sweats. The patient has never had an abnormal pap smear. Her most recent pap smear was 10/08/2020 - NIL, neg HR HPV. Next due in 2025. She has not been diagnosed with breast cancer. She does not have a family history of breast cancer. Her last mammogram was done at [place] within the last year. She does not have a family history of colon cancer. She a has had a colonoscopy. The last colonoscopy was December 2023 at [facility]. The patient does not exercise. She will occasionally walk the dog. * ROS:?Annual Chief Analytics Officer Exam ROS:?Bowel habit changes?denies.?Bladder symptoms?denies.?Vaginal discharge, unusual?denies.?Vaginal itch or odor?denies.?weight or appetite changes?denies.?Chest pains, SOB?denies.?depression?denies.?Breast:?Denies?Breast lump.?Denies?Nipple discharge.?Hematology:?Denies?Swollen glands.?Skin:?Patient denies?changing moles.?Psychiatric:?Denies?Anxiety.? * Medical History:? * Chief Analytics Officer History:?/ Para?2/2.?Sexual activity?currently sexually active.?Last Pap Smear:?10/08/2020 NIL/neg hrHPV.?Mammogram:?at [facility].?Abnormal Pap Smear:?no history of abnormal pap smears.?LMP and menses?03/15/24- CONTINUOS 21 DAYS.?History of STD's:?none.? Control:?bilateral tubal ligation.?Colonoscopy?12/2023 - f/u 10 yrs.?Gardasil:?has not had vaccine.? * OB History:?Total pregnancies?.? # 1:?Primary , 08/10/2000, Tony, 8lb 2oz, CPD, no complications.? # 2:?Repeat , 03/23/2002, Carine, 7lb 8oz, no complications, with tubal ligation.? * Surgical History:?Hernia Rep air Bilateral Tubal Ligation Hysteroscopic Partial Polypectomy 2012Hysteroscopy, Polypectomy with Truclear, Fractional D& C 08/19/17Hsono with Embx 04/09/17Hsono with EMbx 2009Hsono with Embx 2015 * Hospitalization/Major Diagno stic Procedure:?Child See Surgical Hx * Family History:?Mother: octavio cheatham 62 yrs, well.?Father: alive 66 yrs, well.?Brother El: alive 44 yrs, well, shares both parents.?Brother Julio Cesar: alive 39 yrs, shares same father, well.?Brother Adonay: alive 42 yrs, asthma, shares both parents.?Pat GR Aunt: colon cancer.?Pat GR GF: colon cancer.?Sister Silvia: alive 39 yrs, shares same mother, well.?Sister Angelina: alive 37 yrs, shares same father, well.?Sister Madhavi: alive 30 yrs, shares same father, well.? * Social History:?Tobacco Use:?Tobacco Use/Smoking?Are you a?nonsmoker ???Sexual History:?Sexual History?Had sex in the past 12 months (vaginal, oral, or anal)??Yes ?with?Men only ?Prevention strategies discussed:?Other ?Details of Sexual History?Are you sexually active??Yes ???Drugs/Alcohol:?Drugs?Have you used drugs other than those for medical reasons in the past 12 months??No ?Alcohol Screen (Audit-C)?Did you have a drink containing alcohol in the past year??No ?Points?0 ?Interpretation?Negative ???Miscellaneous:?Children: yes, 2. ?Domestic violence: no. ?Exercise: no. ?Home smoke detector use: yes, smoke detectors, carbon monoxide detector. ?Housing: owns a home. ?Living with: spouse, daughter. ?Marital status: , Tony. ?Natural support system: yes. 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 ?Pets: dogs: Boxer (Jailyn). ?Sexual abuse: no. ?Sexually active: yes, monogamous relationship. ?Verbal abuse: no. * Medications:?TakingZyrTEC Al lergy Flovent HFA ProAir HFA 108 (90 Base) MCG/ACT Aerosol Solution 2 puffs as needed Inhalation prn Pulmicort Flexhaler 180 MCG/ACT Aerosol Powder Breath Activated Inhalation Taking ZyrTEC Allergy Taking Flovent HFA Taking ProAir HFA 108 (90 Base) MCG/ACT Aerosol Solution 2 puffs as needed Inhalation prn Taking Pulmicort Flexhaler 180 MCG/ACT Aerosol Powder Breath Activated Inhalation DiscontinuedAllopurinol Vitamin B6 Aygestin 5 MG Tablet 1 tablet Orally day 1: 2 tabs bid. day 2: 1 tab tid. day 3: 1 tab bid. day 4-56: 1 tab QD , Notes to Pharmacist: Mark started it 12/12/18Medication List reviewed and reconciled with the patientDiscontinued Allopurinol Discontinued Vitamin B6 Discontinued Aygestin 5 MG Tablet 1 tablet Orally day 1: 2 tabs bid. day 2: 1 tab tid. day 3: 1 tab bid. day 4-56: 1 tab QD , Notes to Pharmacist: Hasnt started it 12/12/18Medication List reviewed and reconciled with the patient * Allergies:?N.K.D.A.no[Allerg ies Verified] Objective: * Vitals:?Ht: 63.00 in, Wt:252 lbs, BMI:44.63Index, BP:110/80mm Hg, Temp:98.0F. * Examination: ???General Examination: ?GENERAL APPEARANCE:?in no acute distress, well developed, well nourished, production control supervisor present in room.?HEAD:?normocephalic, atraumatic.?NECK/THYROID:?neck supple, full range of motion, thyroid normal.?LYMPH NODES:?no axillary or supraclavicular adenopathy.?SKIN:? normal, good turgor, no rashes, no suspicious lesions.?BREASTS:? normal, no dimpling, no discharge, no drainage, no masses palpable bilaterally, nontender.?ABDOMEN:? soft, non-tender, non distended without masses or hepatosplenomegay.?RECTAL:?deferred due to recent colonoscopy.?BACK:? no costovertebral angle tenderness.?FEMALE GENITOURINARY:?Vulva without lesions or masses, vagina pink without abnormal discharge, lesions or masses, 2 swabs needed to clear vault of small clots and menstrual blood, cervix appears normal without polyps and is not tender to palpation, uterus is difficult to size due to habitus but does not feel enlarged, mobile, nontender and anteverted, ovaries are not palpable.?NEUROLOGIC:? alert and oriented, gait normal.?PSYCH:? alert, oriented, cognitive function intact, cooperative with exam, good eye contact, mood/affect full range, speech clear.? Assessment: * Assessment: 1.?Encounter for gynecologic al examination (general) (routine) without abnormal findings - Z01.419 (Primary)???2.?Encounter for screening mammogram for malignant neoplasm of breast - Z12.31???3.?Other specified abnormal uterine and vaginal bleeding - N93.8??? Plan: * Treatment: 2.?Encounter for screening m ammogram for malignant neoplasm of breast?Imaging: MM Digital Screening Mammogram 3D 3.?Other specified abnormal uterine and vaginal bleeding? Start Aygestin Tablet, 5 MG, 1 tablet, Orally, q 4hrs-d1, i1gzr-h9, a2tex-v2, then twice a day for 14 days, 42 Tablet, Refills 0.?LAB: CBC, Platelet, No Differential-999910 ? Value Reference Range ?WBC 8.9 3.4-10.8 - x10E 3/uL * ?RBC 3.69 L 3.77-5.28 - x10 E6/uL * ?Hemoglobin 9.9 L 11.1-15.9 - g/dL * ?Hematocrit 31.7 L 34.0-46.6 - % * ?MCV 86 79-97 - fL * ?MCH 26.8 26.6-33.0 - pg * ?MCHC 31.2 L 31.5-35.7 - g/d L * ?RDW 14.0 11.7-15.4 - % * ?Platelets 420 150-450 - x10 E3/uL * This lab was reviewed by STEVEN SANCHEZ on 04/06/2024 at 14:01 PM EDT ?LAB: Test, Urine (Collection Date & Time - 04/04/2024)* ? Value Reference Range ? Test, Urine NEG Notes: LIkely anovulatory cycle - will prescribe a progesterone withdrawal and monitor. If abnormalbleeding continues, then will need re-evaluation.?? * Procedure Codes:? * Preventive Medicine:? ~~~~~~~~~~~~~ STRENGTH TRAINING ~~~~~~~~~~~~~ Anyone, at any fitness level, can and should add strength training to their routine. Strength training is an important part of an overall fitness program, mainly because lean muscle mass naturally diminishes with age. You'll increase the percentage of fat in your body if you don't do anything to replace the lean muscle you lose over time. Strength training can help you preserve and enhance your muscle mass (at any age!), develop strong bones and reduce the risk of osteoporosis, manage or lose weight and increase your metabolism to help you burn more calories. It will also improve your ability to do everyday activities and reduce symptoms of chronic conditions such as arthritis, back pain, obesity, heart disease and diabetes. Some research suggests that regular strength training may help improve thinking and learning skills. Don't be intimidated. You can strength train at home or in the gym, and you have plenty of options. You can rely on your body weight and do many exercises with little or no equipment, like pushups, pullups, planks and leg squats. Or you can go pro and choose to go with resistance tubing (a lightweight tubing that provides resistance when stretched), free weights like barbells and dumbbells, or weight machines at the gym. ~~~~~~~~~~~~~~~~~~~~~~~~~~~~~~~~~~~~~~~~~~~ SARCOPENIA AND THE IMPORTANCE OF STRENGTH TRAINING EXERCISE ~~~~~~~~~~~~~~~~~~~~~~~~~~~~~~~~~~~~~~~~~~~ What is sarcopenia? ~~~~~~~~~~~~ Sarcopenia refers to the process of losing skeletal muscle mass and strength. 'Sarco' is the Irish word referring to flesh, and 'penia' means a reduction in amount. Thus, the word describes a progressive weakening of the body caused by a 'change in body compensation in favor of fat and at the expense of muscle.' Everyone, beginning around age 25, starts to lose muscle mass, though the actual symptoms of this loss do not usually begin showing up until around the age of 40 or so. The process begins really picking up speed after the age of 65. In fact, around the age of 40, most women will lose almost a half-pound of muscle every year and replace it with fat. The result of this gradual loss of muscle is an insidious weakening of the body, loss of balance, loss of confidence upon walking, and a reduced ability to recover from near falls. As we lose strength, we become more inactive. This makes sense, because if we have less muscle, it takes much more effort to move, and we fatigue more easily. But also, with loss of strength comes loss of balance and stability. The fear of falling keeps many people sedentary, and a sedentary lifestyle opens the door for chronic illness. ~~~~~~~~~~~~~~ Take back your muscle ~~~~~~~~~~~~~~ And now for great news: you can delay sarcopenia and even reverse it. How? By lifting weights. Even though you cannot grow new muscles cells to replace the ones you have already lost, you can develop the ones that you have left. In fact, you can become stronger than you ever have in your life by simply beginning a strength training program. No matter how old you are, it is not too late to start. Even patients in nursing homes have seen transformation. After strength training, bedridden patients were able to begin walking with walkers, walker-dependent patients graduated to canes, and so on. And no matter how young you are, it is not too early to start! By starting early, you can significantly delay the effects of sarcopenia. As you begin lifting weights, you will notice a transformation in your body. You will have more energy, you will perform everyday tasks with noticeably more ease and your clothes will begin sagging on you, because you will be building muscle and burning up the fat deposits. You will have greater balance and more confidence. And perhaps best of all is the insurance policy you pay premiums on every time you choose to lift, because you are laying a strong, solid foundation for your later years. You are laying up health, independence and the ability to live well, not just long. DON'T LET ANOTHER DAY GO BY THAT YOU ARE LOSING MUSCLE. Take it back, and get ready to feel better than you ever have! . * Follow Up:?1 Year (Reason: Y early Chief Analytics Officer Exam) * Images: Billing Information: * Visit Code:? 57444 Preventive Care Est Pt. Age 40-64. * Procedure Codes:? 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 She has been in state of good health since her last exam. She has the following concerns: she has been bleeding for the last 21 days She has received the [employer] Covid-19 vaccine. Relationship status: for 25 years. She is sexually active. Sexual partner(s): male. She does not wish to have STI testing. Menses: monthly, lasting 6-7 days. 2 months ago - she had a period early and then late in the month, then no bleeding last month, then this month the bleeding started 03/15/24 and continues - the flow has been moderate to heavy for the duration. She is changing a pad about 4-5 times daily. She has had a couple of times where she bled through her bedclothes. Contraception: tubal ligation She does not report vaginal dryness. She does not have hot flashes/night sweats. The patient has never had an abnormal pap smear. Her most recent pap smear was 10/08/2020 - NIL, neg HR HPV. Next due in 2025. She has not been diagnosed with breast cancer. She does not have a family history of breast cancer. Her last mammogram was done at [place] within the last year. She does not have a family history of colon cancer. She a has had a colonoscopy. The last colonoscopy was December 2023 at [facility]. The patient does not exercise. She will occasionally walk the dog. Examination Category Sub-Category Detail Notes Category Not es General Examination GENERAL APPEARANCE: in no ac [place] distress, well developed, well nourished, production control supervisor present in room HEAD: normocephalic, atrau matic NECK/THYROID: neck supple, full ra nge of motion, thyroid normal ABDOMEN: soft, non-tender, no n distended without masses or hepatosplenomegay NEUROLOGIC: alert and oriented, gait normal SKIN: normal, good turgor, no rashes, no suspicious lesions BACK: no costovertebral an gle tenderness BREASTS: normal, no dimpling, no discharge, no drainage, no masses palpable bilaterally, nontender LYMPH NODES: no axillary or supra clavicular adenopathy RECTAL: deferred due to rece nt colonoscopy PSYCH: alert, oriented, cog nitive function intact, cooperative with exam, good eye contact, mood/affect full range, speech clear FEMALE GENITOURINARY: Vulva without lesi ons or masses, vagina pink without abnormal discharge, lesions or masses, 2 swabs needed to clear vault of small clots and menstrual blood, cervix appears normal without polyps and is not tender to palpation, uterus is difficult to size due to habitus but does not feel enlarged, mobile, nontender and anteverted, ovaries are not palpable
--- OUTSIDE RECORDS SUMMARY | 2024-10-28 12:15 | XMS_ITS ---
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 Primary Care Provider GRACE Fletcher Unavailable [phone] REASON FOR VISIT Anemia Encounters Encounter Location Date Provider Diagnosis [facility] [address] [address] 04/06/2024 GRACE SANCHEZ Plan Of Treatment Next Appt Details Provider Name:GRACE Ferrer, 04/13/2025 09:40:00 AM, [address] [place] [address], [address], [place], [address], Progress Notes * FAINA CLOUDDOB: [birth year] (44 yo F)Acc No.[id number]:04/06/2024 Patient:?FAINA CLOUD :1980???Age:44 Y???Sex:Female Address:[address] [place] [address], [address] * true * Date:? Generated for Lashoni la/Emery/eTransmitting on:?10/28/2024 12:15 PM EDT
[2024-10-28 12:44] VITALS: BP 110/80; PULSE 69; RESP 16; TEMP 36.7; O2SAT 98; BMI 45.5
--- NOTE | 2024-10-28 12:44 | AM.OFFWIN_ITS ---
Intake Vital Signs 10/28/24 12:44 Height 5 ft 3 in Weight 257 lb BMI 45.5 BP 110/80 Blood Pressure Location Rt brachial Position Sitting Respiration 16 Pulse 69 Pulse Source Pulse Oximeter Temp 98.0 F Temp Source Oral Pulse Oximetry (%) 98 Oxygen Delivery Method Room Air Intake Visit Reasons: EP- Lt ear ache, sore throat Intake Note: Pt is here today c/o Lt ear pain and sorethroat Patient Tobacco Use Status: Never used Tobacco Allergies No Known Allergies [No Known Allergies*] Allergy (Verified 10/28/24 12:55) Medication List - Last Reconciled 10/28/24 by Derek Miller MD albuterol sulfate 90 mcg/actuation (Ventolin HFA) 2 puffs inhalation Q6H PRN budesonide 180 mcg/actuation (Pulmicort Flexhaler) 2 inhalations inhalation BID 30 days cetirizine (Zyrtec) 10 mg PO DAILY hydrocortisone-acetic acid 1-2 % 4 drps otic (ear) left Q6H HPI EP- Lt ear ache, sore throat HPI Details Sore throat and bilateral ear pain left worse than right for the past couple of days Now developing cough and wheeze which feels like asthma exacerbation to patient. She is taking her asthma medications as prescribed [facility] Medical History Persistent acute otitis media Colon cancer screening Breast cancer screening by mammogram Upper respiratory tract infection Obesity Diverticulosis Hemorrhoids History of pilonidal cyst Asthma GERD (gastroesophageal reflux disease) Surgical History S/P dilatation and curettage History of hernia surgery Previous section History of excision of pilonidal cyst H/O tubal ligation Family History Father Chronic mental illness Mother Chronic mental illness Maternal Grandfather Renal cell cancer Social History Housing: House Alcohol intake: never Patient Tobacco Use Status: Never used Tobacco Tobacco use type: Cigarette e-Cigarette/Vaping Use: Never Used Second Hand Smoke Exposure: No Current occupational status: employed Cognitive needs: No Hearing needs: No Vision needs: Yes Review of Systems ENT Details: See HPI Resp Details: See HPI Physical Exam Vital Signs: Last Vital Signs Temp 98.0 F 10/28/24 12:44 Pulse 69 10/28/24 12:44 Resp 16 10/28/24 12:44 BP 110/80 10/28/24 12:44 Pulse Ox 98 10/28/24 12:44 Oxygen Delivery Method Room Air 10/28/24 12:44 BMI result Body Mass Index 45.5 Const General: no acute distress and well developed Nutritional Appearance: well nourished Orientation/consciousness: patient oriented x3 HEENT Other: Swollen tonsils and posterior nasopharynx with small patchy exudates Mild lymphadenopathy Right TM mildly erythematous Left TM with erythema and pus Head: Yes normocephalic and Yes atraumatic Eyes General: appearance normal, both eyes and all related structures Pupils: Equal, round and reactive pupils present EOM: EOMs intact bilaterally Resp Other: Lungs CTA on exam today. Effort & Inspection: normal respiratory effort Auscultation: clear to auscultation bilaterally Cardio Other: No chest pain Rate: regular rate Rhythm: regular rhythm Heart sounds: S1 normal heart sound present, S2 normal heart sound present, no gallops, no murmurs and no rubs Neuro General: patient oriented x3 and gait normal Cranial nerves: Yes Equal, round and reactive pupils present Psych Affect: normal affect Results AMB Rapid Strep AMB Rapid Strep Negative Last Edit by Shoshana Morrison CMA on 10/28/24 12:54 Results Reviewed Results Reviewed: Laboratory Last Values Strep Scn Rapid Clinic Negative 10/28/24 12:45 Assessment & Plan Assessment & Plan (1) Strep pharyngitis: Code(s): J02.0 - Streptococcal pharyngitis Plan: Posterior pharyngeal erythema with patchy exudates and lymphadenopathy. Likely strep pharyngitis despite negative rapid strep. Patient also has a left otitis media Will start amoxicillin Warm saltwater gargles Rest and plenty of fluid (2) Left otitis media: Code(s): H66.92 - Otitis media, unspecified, left ear Plan: Left otitis media As above, start amoxicillin (3) Mild asthma exacerbation: Code(s): J45.901 - Unspecified asthma with (acute) exacerbation Plan: Mild asthma exacerbation Patient feels this is worsening and requests prednisone. Will give her a short course of prednisone Also advised she continue using her inhaled medications as prescribed Orders: Orders AMB Rapid Strep Screen Today Z13.9 - Encounter for screening, unspecified Medications: New amoxicillin 500 mg PO Q12H 10 days 20 tabs 0RF prednisone 40 mg (2 x 20 mg) PO DAILY 4 days 8 tabs 0RF Coding Level of Care Code Est Pt Level 3 (06615) Diagnoses Strep pharyngitis J02.0 Left otitis media H66.92 Mild asthma exacerbation J45.901
== END 2024-10-28 13:46 | disposition home or self-care (01) ==
LOC: HO.HMCWIC 12:12
PROVIDERS: PCP Internal Medicine; Visit Provider Family Medicine
DX: J02.0 Streptococcal pharyngitis (principal); H66.92 Otitis media, unspecified, left ear; J45.901 Unspecified asthma with (acute) exacerbation; Z13.9 Encounter for screening, unspecified

== ENCOUNTER → 2024-10-28 12:12 | Outpatient (BNVA) | payer OTHER, SELFPAY | PROVIDERS: PCP Internal Medicine; Visit Provider Family Medicine | DX: J02.0 Streptococcal pharyngitis (principal); H66.92 Otitis media, unspecified, left ear; J45.901 Unspecified asthma with (acute) exacerbation | CPT/HCPCS: 87880 ==

== ENCOUNTER 2025-03-12 11:07 | Outpatient (AMB) | payer OTHER, SELFPAY ==
[2025-03-12 11:33] VITALS: BP 122/86; PULSE 83; TEMP 36.7; O2SAT 98; BMI 44.6
--- NOTE | 2025-03-12 11:33 | AM.OFFWIN_ITS ---
Intake Vital Signs 03/12/25 11:33 Height 5 ft 3 in Weight 252 lb BMI 44.6 BP 122/86 Blood Pressure Location Lt brachial Position Sitting Pulse 83 Pulse Source Pulse Oximeter Temp 98.1 F Temp Source Oral Pulse Oximetry (%) 98 Oxygen Delivery Method Room Air Intake Visit Reasons: EP-?covid, sob Intake Note: pt presents with SOB, sinus congestion, fatigue/weakness, dry cough and left ear pain for 4 days Patient Tobacco Use Status: Never used Tobacco Allergies No Known Allergies (No Known Allergies*) Allergy (Verified 03/12/25 11:35) Do you need a note to return to daycare/school/sports/work: Yes HPI HPI Comments History of Present Illness Details History - The patient is a 44-year-old female pr esenting with symptoms related to a recent COVID-19 infection. - She tested positive for COVID-19 on after two tests confirmed the diagnosis. - The patient reports a persistent sever e cough, particularly at night, and shortness of breath, along with ear pain and congestion. - She has been using Tylenol Cold and Fl u medication and alternating with Motrin for symptom relief. - She denies fever, chills, CP, SOB, abd pain, n/v/d. Physical Exam General: Cooperative, healthy appearing, comfortable and no acute distress Orientation/consciousness: Patient oriented x3 Limitations: No limitations Head: Normal to inspection Ears: Hearing grossly normal bilaterally, external ears normal and TM's normal bilaterally, but patient reports ear pain Nose: Normal external nose present, normal nares present, and no nasal discharge present. Face and sinus: Sinuses nontender to palpation. Mouth: Normal oral and palatal mucosa present and moist mucous membranes noted. Throat: Tonsils normal. Uvula is midline. Posterior oropharynx with erythema and no exudates. Eyes: Appearance normal, both eyes and all related structures Neck: Normal visual inspection, full ROM. No lymphadenopathy noted. Respiratory: Clear to auscultation bilaterally. Normal respiratory effort, able to speak in complete sentences. No respiratory distress, not tachypneic, no tripod positioning and no use of accessory muscles. Patient reports shortness of breath and cough. Cardiovascular: Regular rate and rhythm. Normal S1 and S2 Skin: No rashes or lesions noted Patient was informed and verbally consented to the use of an ambient scribe for clinic note documentation during this visit [facility] Medical History Persistent acute otitis media Colon cancer screening Breast cancer screening by mammogram Upper respiratory tract infection Obesity Diverticulosis Hemorrhoids History of pilonidal cyst Asthma GERD (gastroesophageal reflux disease) Surgical History S/P dilatation and curettage History of hernia surgery Previous section History of excision of pilonidal cyst H/O tubal ligation Family History Father Chronic mental illness Mother Chronic mental illness Maternal Grandfather Renal cell cancer Social History Housing: House Alcohol intake: never Patient Tobacco Use Status: Never used Tobacco Tobacco use type: Cigarette e-Cigarette/Vaping Use: Never Used Second Hand Smoke Exposure: No Current occupational status: employed Cognitive needs: No Hearing needs: No Vision needs: Yes Review of Systems Const All systems reviewed & are unremarkable except as noted in HPI and below Physical Exam Vital Signs: Last Vital Signs Temp 98.1 F 03/12/25 11:33 Pulse 83 03/12/25 11:33 BP 122/86 03/12/25 11:33 Pulse Ox 98 03/12/25 11:33 Oxygen Delivery Method Room Air 03/12/25 11:33 BMI result Body Mass Index 44.6 Assessment & Plan Assessment & Plan (1) URI with cough and congestion: Code(s): J06.9 - Acute upper respiratory infection, unspecified Plan Most likely Covid-19 Infection vs flu vs RSV plan - will order covid/flu/RSV swab to confirm - Prescribed benzonatate tablets for cough relief, to be taken three times daily. - Recommended Zyrtec D to address decongestion and ear pain. - Advised continuation of Tylenol and Motrin for symptom management, along with increased fluid intake. - work note given - follow up with PCP Medications: New benzonatate 100 mg PO bid-tid PRN 21 caps 0RF Cough 7 days cetirizine-pseudoephedrine 5-120 mg ER 1 tab PO BID 14 tabs 0RF 7 days Refilled albuterol sulfate 90 mcg/actuation (Ventolin HFA) 2 puffs inhalation Q6H PRN 8.5 grams 0RF shortness of breath or wheezing M76.61 - Achilles tendinitis, right leg, M76.62 - Achilles tendinitis, left leg Coding Level of Care Code Est Pt Level 3 (73533) Diagnoses URI with cough and congestion J06.9
--- OUTSIDE RECORDS SUMMARY | 2025-03-12 13:36 | XMS_ITS ---
Author Name [facility] Organization Unknown Care Team Organization Name Specialty Phone Email Start Date End [email or web address]
== END 2025-03-12 13:17 | disposition home or self-care (01) ==
PROVIDERS: PCP Internal Medicine; Visit Provider Physician Assistant Medical
DX: J06.9 Acute upper respiratory infection, unspecified (principal)

== ENCOUNTER 2025-03-12 11:07 | Outpatient (REF) | payer OTHER, SELFPAY ==
[2025-03-12 15:42] LABS: Resp Syncy Virus RNA Qual PCR NEGATIVE (Negative); SARS COV2 PCR INHOUSE POSITIVE (Negative)
== END 2025-03-12 11:08 | disposition home or self-care (01) ==
LOC: HO.LNP 11:07
PROVIDERS: PCP Internal Medicine; Visit Provider Physician Assistant Medical
DX: J06.9 Acute upper respiratory infection, unspecified (principal)
CPT/HCPCS: 87637

== ENCOUNTER 2025-04-13 15:25 | Outpatient (AMB) | payer OTHER, SELFPAY ==
--- NOTE | 2025-04-13 15:43 | A.OFFPC_ITS ---
Vital Signs 04/13/25 15:45 Height 5 ft 3 in Weight 255 lb 6 oz BMI 45.2 BP 132/72 Blood Pressure Location Lt brachial Position Sitting Pulse 76 Pulse Source Pulse Oximeter Temp 96.9 F Temp Source Temporal Artery Scan Pulse Oximetry (%) 98 Oxygen Delivery Method Room Air Intake Visit Reasons: left leg pain Intake Note: Patient is here to follow up on left leg pain. Data Migration Lead Required: No Golf Player Assistant: Not Required per policy Accompanied by: Self / Same As Patient Allergies No Known Allergies (No Known Allergies*) Allergy (Verified 04/13/25 15:44) Tobacco use date assessed: 04/13/25 Dental Screening Dental Screen Date: 04/13/25 Did you have a dental visit in the last 12 months?: No Did you have a dental problem in the last 6 months where you did not have access to dental care?: No Was dental information given to patient?: Patient has dentist [facility] Medical History Persistent acute otitis media Colon cancer screening Breast cancer screening by mammogram Upper respiratory tract infection Obesity Diverticulosis Hemorrhoids History of pilonidal cyst Asthma GERD (gastroesophageal reflux disease) Surgical History S/P dilatation and curettage History of hernia surgery Previous section History of excision of pilonidal cyst H/O tubal ligation Family History Father Chronic mental illness Mother Chronic mental illness Maternal Grandfather Renal cell cancer Social History Housing: House Alcohol intake: never Patient Tobacco Use Status: Never used Tobacco Tobacco use type: Cigarette e-Cigarette/Vaping Use: Never Used Second Hand Smoke Exposure: No service: No Current occupational status: employed Cognitive needs: No Hearing needs: No Vision needs: Yes (Glasses) Questionnaire PHQ-9 Over the last 2 weeks, how often have you been bothered by any of the following problems? 1. Little interest or pleasure in doing things: not at all 2. Feeling down, depressed, or hopeless: not at all 3. Trouble falling or staying asleep, or sleeping too much: not at all 4. Feeling tired or having little energy: not at all 5. Poor appetite or overeating: not at all 6. Feeling bad about yourself - or that you are a failure or have let yourself or your family down: not at all 7. Trouble concentrating on things, such as reading the newspaper or watching television: not at all 8. Moving or speaking so slowly that other people could have noticed. Or the opposite - being so fidgety or restless that you have been moving around a lot more than usual: not at all 9. Thoughts that you would be better off or of hurting yourself in some way: not at all Total score: 0 Depression Screening Interpretation: Negative Depression Screening Done: Yes Source: Developed by Drs. Monster Barriga, Brenna Diaz, Milton Hopkins and colleagues, with an educational zi from [employer]. Thrive Questionnaire Date Thrive assessed: 07/18/24 I am a: Patient What is your living situation today?: I have a steady place to live Within the past 12 months, did the food you bought not last and you didn't have the money to get more?: Never true Within the past 12 months, did you worry whether your food would run out before you got money to buy more?: Never true Do you have trouble paying for medicines?: I choose not to answer this question Do you have trouble getting transportation to medical appointments?: No Do you have trouble paying your heating and electricity bill?: No Do you have trouble taking care of your child, family member or friend?: No Do you have trouble with day-to-day activities such as bathing, preparing meals, shopping, managing finances, etc.?: No Are you currently unemployed and looking for a job?: No Are you interested in more education?: No Please select the resources that you would like help with: None Currently or been in a relationship where the following occur: No concerns reported THRIVE Score: 0 AUDIT C Alcohol Use Questionnaire (AUDIT-C) 1. How often do you have a drink containing alcohol?: Monthly or less 2. How many drinks containing alcohol do you have on a typical day when you are drinking?: 1 or 2 Total Score: 1 ANIKA-7 AMB Questionnaire ANIKA-7 Date ANIKA - 7 assessed: 04/13/25 Feeling nervous, anxious, or on edge: 0 = Not at all Not being able to stop or control worryin = Not at all Worrying too much about different things: 0 = Not at all Trouble relaxin = Not at all Being so restless that it is hard to sit still: 0 = Not at all Becoming easily annoyed or irritable: 0 = Not at all Feeling afraid as if something awful might happen: 0 = Not at all Total ANIKA-7 score (0-4 normal; 5-9 mild; 10-14 moderate; 15-21 severe): 0 Source: Developed by Drs. Monster Barriga, Brenna Diaz, Milton Hopkins and colleagues, with an educational zi from [employer]. Physical exam (Primary Care) Vital Signs: Last Vital Signs Temp 96.9 F 04/13/25 15:45 Pulse 76 04/13/25 15:45 BP 132/72 04/13/25 15:45 Pulse Ox 98 04/13/25 15:45 Oxygen Delivery Method Room Air 04/13/25 15:45 BMI result Body Mass Index 45.2 Tobacco/Smoking Status: Tobacco use Status Tobacco use date assessed 04/13/25 04/13/25 15:52 Patient Tobacco Use Status Never used Tobacco 04/13/25 15:52 Tobacco use type Cigarette 04/13/25 15:52 e-Cigarette/Vaping Use Never Used 04/13/25 15:52 PHQ-9: PHQ-9 Score PHQ-9: Total score 0 04/13/25 15:52 Depression Screening Interpretation: Negative Thrive Assessment: Date of Thrive Assessment Date Thrive assessed 07/18/24 04/13/25 15:52 Currently or been in a relationship where the following occur: No concerns reported Const General: alert; No acute distress Eyes Conjunctivae: conjunctivae normal Resp Auscultation: clear to auscultation bilaterally Cardio Rate: regular rate Rhythm: regular rhythm GI Inspection: Yes normal to inspection Extrem General: Yes normal to inspection and No edema Coding Level of Care Code Est Pt Level 4 (89749) Diagnoses Morbid obesity due to excess calories E66.01 Gastroesophageal reflux disease, unspecified whether esophagitis present K21.9 Esophagitis presence: esophagitis presence not specified Anemia D64.9 Osteoarthritis of right knee, unspecified osteoarthritis type M17.11 Osteoarthritis type: unspecified Asthma J45.909 Left knee pain M25.562 Assessment & Plan Assessment & Plan (1) Morbid obesity due to excess calories: Code(s): E66.01 - Morbid (severe) obesity due to excess calories Category: Medical Plan: Diet and exercise (2) GERD (gastroesophageal reflux disease): Code(s): K21.9 - Gastro-esophageal reflux disease without esophagitis Category: Medical Qualifiers: Esophagitis presence: esophagitis presence not specified Qualified Code(s): K21.9 - Gastro-esophageal reflux disease without esophagitis Plan: Avoid the foods that causes that usually spicy foods, tomato products, juices, coffee, soda and foods that your sensitive to. After eating do not lie down, allow 3-4 hours before in lie down. And keep the head of bed above 30 degrees to avoid the acid from going up. (3) Anemia: Code(s): D64.9 - Anemia, unspecified Category: Medical Plan: Will advised repeat blood test (4) Osteoarthritis of right knee: Code(s): M17.11 - Unilateral primary osteoarthritis, right knee Category: Medical Qualifiers: Osteoarthritis type: unspecified Qualified Code(s): M17.11 - Unilateral primary osteoarthritis, right knee Plan: Keep active and try to lose weight (5) Asthma: Code(s): J45.909 - Unspecified asthma, uncomplicated Category: Medical Plan: Patient on albuterol inhaler as well as Pulmicort (6) Left knee pain: Code(s): M25.562 - Pain in left knee Category: Medical Plan X-ray requested of the left knee and patient has been doing anti-inflammatory. History of Present Illness The patient is a 45-year-old female presenting for a follow-up visit after being last seen on February 13. She has a history of systemic lupus erythematosus, gastroesophageal reflux disease, asthma, nephrolithiasis, and osteoarthritis of the right knee. In March, she visited an urgent care center due to an upper respiratory tract infection and was prescribed an albuterol inhaler, Zyrtec, and Tessalon. The patient tested positive for COVID-19 on March 12 and had a subsequent urgent care visit in October 2024 for left earache, where she was treated for streptococcal pharyngitis and otitis media with amoxicillin and prednisone. In April 2024, she experienced conjunctivitis. Her last blood work in February 2024 showed mild anemia with hemoglobin at 11.8 g/dL and hematocrit at 36.9%. Electrolytes and renal function were normal, but blood sugar was mildly elevated with a normal hemoglobin A1c, and liver function was within normal limits. Health Maintenance - Advised to maintain an active lifestyle and attempt weight loss - Recommended repeat blood tests Social History - Exercise: Advised to keep active - Weight management: Encouraged to try to lose weight Review of Systems - Respiratory: Reports upper respiratory tract infection, positive for COVID-19 - Ears: Reports left earache - Eyes: Reports conjunctivitis Physical Exam Results - Labs: Mild anemia with hemoglobin 11.8 g/dL and hematocrit 36.9% - Labs: Mildly elevated blood sugar with normal hemoglobin A1c - Labs: Normal electrolytes, renal function, and liver function Plan Patient was informed and verbally consented to the use of an ambient scribe for clinic note documentation during this visit. 1. Systemic Lupus Erythematosus The patient will continue with regular monitoring and management of systemic lupus erythematosus, with emphasis on symptom control and prevention of flare- ups. 2. Gastroesophageal Reflux Disease (Gerd) The patient is advised to follow a reflux management plan, including dietary modifications and medication adherence. 3. Asthma The patient is on albuterol inhaler and Pulmicort for asthma management, with instructions to use as needed for symptom relief. 4. Nephrolithiasis The patient will be monitored for any recurrence of nephrolithiasis and advised to maintain adequate hydration. 5. Osteoarthritis Of The Right Knee The patient is encouraged to engage in low-impact exercises to manage osteoarthritis symptoms and maintain joint function. 6. Upper Respiratory Tract Infection The patient was treated with an albuterol inhaler, Zyrtec, and Tessalon for symptom relief during the upper respiratory tract infection. 7. Covid-19 Infection The patient tested positive for COVID-19 and was advised to follow isolation guidelines and monitor symptoms. 8. Otitis Media The patient was treated with amoxicillin and prednisone for otitis media. 9. Streptococcal Pharyngitis The patient received amoxicillin and prednisone for streptococcal pharyngitis. 10. Conjunctivitis The patient experienced conjunctivitis in April 2024 and was advised to monitor for any recurrence. 11. Anemia The patient has mild anemia and will have repeat blood tests to monitor hemoglobin levels. Discussion Notes Patient Instructions - Continue using albuterol inhaler and Pulmicort as needed for asthma. - Follow dietary modifications for GERD management. - Maintain an active lifestyle and attempt weight loss. - Monitor for any recurrence of conjunctivitis and report if symptoms persist. - Follow isolation guidelines and monitor symptoms for COVID-19. - Schedule repeat blood tests to monitor anemia. Orders: Orders Complete Blood Count Auto Diff Today D64.9 - Anemia, unspecified Comprehensive Met. Panel Today D64.9 - Anemia, unspecified Vitamin B12 and Folate Today D64.9 - Anemia, unspecified Vitamin D 25-OH Total Today D64.9 - Anemia, unspecified Lipid Panel Today D64.9 - Anemia, unspecified, E78.00 - Pure hypercholesterolemia, unspecified Ferritin Today D64.9 - Anemia, unspecified XR knee LT 2V Today M25.562 - Pain in left knee Hemoglobin A1c Today D64.9 - Anemia, unspecified Free T4 (Free Thyroxine) Today D64.9 - Anemia, unspecified IRON PROFILE Today D64.9 - Anemia, unspecified Reticulocyte Count Today D64.9 - Anemia, unspecified Thyroid Stimulating Hormone Today D64.9 - Anemia, unspecified UA CC w/rflx Micro + Cult Today D64.9 - Anemia, unspecified, R30.0 - Dysuria
[2025-04-13 15:45] VITALS: BP 132/72; PULSE 76; TEMP 36.1; O2SAT 98; BMI 45.2
== END 2025-04-13 16:11 | disposition home or self-care (01) ==
LOC: HO.HMCH 15:26
PROVIDERS: PCP Internal Medicine; Visit Provider Internal Medicine
DX: K21.9 Gastro-esophageal reflux disease without esophagitis (principal); E66.01 Morbid (severe) obesity due to excess calories; Z68.42 Body mass index [BMI] 45.0-49.9, adult; D64.9 Anemia, unspecified; M17.11 Unilateral primary osteoarthritis, right knee; J45.909 Unspecified asthma, uncomplicated; M25.562 Pain in left knee

== ENCOUNTER 2025-04-14 09:49 | Outpatient (REF) | payer OTHER, SELFPAY ==
--- NOTE | ~2025-04-14 | XR_ITS ---
EXAMINATION: XR KNEE, LEFT CLINICAL INFORMATION: M25.562 - Pain in left knee COMPARISON: 03/04/2023. TECHNIQUE: AP and lateral views of the left knee. FINDINGS: No fracture, dislocation, or suspicious bone lesion. There is normal alignment. There is mild osteoarthrosis in the medial compartment. The lateral and patellofemoral compartment appear normal. Normal alignment of the patella. There is no evidence of joint effusion. Soft tissues appear normal. XR/XR knee LT 2V IMPRESSION:. 1. No acute bony or soft tissue abnormality. No joint effusion. 2. Mild osteoarthrosis in the the medial compartment. Electronically signed by: Franky Staton MD 04/17/2025 08:25 AM EDT
[2025-04-14 10:22] LABS: MANUAL DIFF FLAG NO
[2025-04-14 11:06] LABS: Hematocrit 37.8 % (37.0-47.0); Hemoglobin 11.8 g/dl (12.0-16.0); Imm Gran Abs Auto 0.02 X10*3/uL (0.00-0.03); Imm Gran Pct Auto 0.2 % (0.0-0.4); Lymphocytes Absolute Auto 2.0 X10*3/uL (1.2-4.9); Mean Corpuscular HGB Conc 31.2 g/dl (31.0-35.0); Mean Corpuscular Hemoglobin 25.8 pg (27.0-33.0); Mean Corpuscular Volume 82.7 fL (80.0-98.0); NRBC Abs Auto 0.000 X10*3/uL (0.0-0.012); NRBC Pct Auto 0.0 /100WBC (0.0-0.2); Platelet Count 360 X10*3/uL (160-400); Red Blood Count 4.57 X10*6/uL (4.20-5.50); Reticulocytes Absolute 0.086 X10*6/uL (0.026-0.095); White Blood Count 8.4 X10*3/uL (4.8-10.8)
[2025-04-14 11:42] LABS: Appearance Urine Clear; Glucose Urine UA Negative (Negative); PH 5.5 (5.0-9.0); Specific Gravity - Urine 1.025 (1.005-1.025); UMIC TRIGGER UACC YES
[2025-04-14 12:08] LABS: Folate 7.4 ng/mL (> or = 4.0); Vitamin B12 379 pg/mL (200-900)
[2025-04-14 12:14] LABS: Alanine Aminotransferase 17 U/L (0-31); Albumin Level 4.0 g/dL (3.5-5.0); Alkaline Phosphatase 86 U/L (39-117); Anion Gap 10 (12-20); Aspartate Amino Transferase 18 U/L (5-31); Blood Urea Nitrogen 16 mg/dL (9-16); Calcium 8.7 mg/dL (8.4-10.2); Carbon Dioxide 28 mmol/L (22-29); Chloride 106 mmol/L (96-108); Cholesterol 170 mg/dL (<200); Estimated Glomerular Filt Rate > 60; HDL Cholesterol 42 mg/dL (>40); Iron 40 mcg/dL (30-160); Percent Iron Saturation 14 % (15-50); Potassium 3.9 mmol/L (3.3-5.1); Sodium 140 mmol/L (135-145); Total Iron Binding Capacity 278 mcg/dL (228-428); Total Protein 7.2 g/dL (6.5-8.0); Triglycerides 65 mg/dL (<150); Unsaturated Iron Binding 238 ug/dL
[2025-04-14 12:15] LABS: Ferritin 17 ng/mL (10-250); Free T4 (Free Thyroxine) 0.99 ng/dL (0.71-1.85); Thyroid Stimulating Hormone 2.23 uIU/mL (0.32-4.0)
== END 2025-04-14 09:50 | disposition home or self-care (01) ==
LOC: HO.XRAY 09:49
PROVIDERS: PCP Internal Medicine; Visit Provider Internal Medicine
DX: Z13.1 Encounter for screening for diabetes mellitus (principal); Z13.21 Encounter for screening for nutritional disorder; M25.562 Pain in left knee; D64.9 Anemia, unspecified; E78.00 Pure hypercholesterolemia, unspecified
CPT/HCPCS: 36415; 73560; 80053; 80061; 81001; 82306; 82607; 82728; 82746; 83036; 83540; 84439; 84443; 85025; 85045

== ENCOUNTER → 2025-04-14 10:26 | Outpatient (BNV) | payer OTHER, SELFPAY | PROVIDERS: PCP Internal Medicine; Visit Provider Radiology Diagnostic Radiology | DX: M17.12 Unilateral primary osteoarthritis, left knee (principal) | CPT/HCPCS: 73560 ==

== ENCOUNTER 2025-05-28 12:06 | Emergency (ER) | payer OTHER, SELFPAY ==
--- NOTE | ~2025-05-28 | US_ITS ---
EXAMINATION: US RETROPERITONEAL LIMITED, RIGHT (RENAL ONLY) CLINICAL INFORMATION: Right flank pain. COMPARISON: CT December 31, 2016 TECHNIQUE: Grayscale and color Doppler imaging was performed through the right kidney. FINDINGS: RIGHT KIDNEY: 11.5 x 4.0 x 4.4 cm (SAG x AP x TRV). The kidney is normal in size, contour, and echogenicity. Renal cortical thickness is normal. No calculi or focal parenchymal lesions. No hydronephrosis. US/US renal RT IMPRESSION: Unremarkable right kidney. Electronically signed by: Dev Benitez MD 05/28/2025 01:18 PM EST
[2025-05-28 12:19] VITALS: BP 140/104; PULSE 67; RESP 20; TEMP 36.1; O2SAT 99; BMI 44.9
--- NOTE | 2025-05-28 12:22 | ED.GENADULT ---
HPI - General Adult General Chief complaint: Back Pain/Injury Stated complaint: Back Pain Time Seen by Provider: 05/28/25 13:21 Source: patient Mode of arrival: ambulatory Limitations: no limitations History of Present Illness ED Provider: Obi Lopez PA-C HPI narrative: 45-year-old female with history of asthma, obesity, kidney stones requiring lithotripsy in the past, GERD, osteoarthritis of the right knee who presents to the ER for evaluation of right-sided flank pain for the last 3 days. Patient reports the pain started acutely on Wednesday after she got out of the shower. The pain, waxes and wanes and is severe in nature. She reports it feels similar to when she had a kidney stone in the past. She denies any associated hematuria, dysuria, urgency, frequency. She reports her urine was little darker today than usual but she did not notice any blood. She states her last kidney stone was 5 or 6 years ago and she has not seen a urologist since she has not had any issues recently. She denies any nausea, vomiting, abdominal pain. No fever or chills. No chest pain or shortness of breath MD complaint: right-sided flank pain Onset (ago): day(s) (3) Location: back Radiation: non-radiation Severity: severe Severity scale (1-10): 8 Quality: sharp Pain Consistency: colicky Relieving factors: none Exacerbating factors: none Associated symptoms: denies other symptoms Treatments prior to arrival: none Related Data Home Medications ?Medication ?Instructions ?Recorded ?Confirmed cetirizine 10 mg tablet (Zyrtec) 10 mg PO DAILY 06/04/23 10/28/24 Previous Rx's ?Medication ?Instructions ?Recorded hydrocortisone-acetic acid 1 %-2 % 4 drp otic (ear) left Q6H #10 mL 07/14/24 ear drops budesonide 180 mcg/actuation 2 inh inhalation BID 30 days #1 ea 11/03/24 breath activated powder inhaler (Pulmicort Flexhaler) albuterol sulfate 90 mcg/actuation 2 puff inhalation Q6H PRN 03/12/25 aerosol inhaler (Ventolin HFA) shortness of breath or wheezing #8.5 grams ibuprofen 600 mg tablet 600 mg PO Q8H PRN pain #30 tabs 04/26/25 naproxen 500 mg tablet,delayed 500 mg PO BID #20 tabs 05/28/25 release tamsulosin 0.4 mg capsule (Flomax) 0.4 mg PO DAILY #30 caps 05/28/25 Allergies Allergy/AdvReac Type Severity Reaction Status Date / Time No Known Allergies (No Known Allergy Verified 05/28/25 12:21 Allergies*) Review of Systems Review of Systems: Yes all other systems are reviewed and are negative [facility] Past Medical History Medical History Persistent acute otitis media Colon cancer screening Breast cancer screening by mammogram Upper respiratory tract infection Obesity Diverticulosis Hemorrhoids History of pilonidal cyst Asthma GERD (gastroesophageal reflux disease) Surgical History S/P dilatation and curettage History of hernia surgery Previous section History of excision of pilonidal cyst H/O tubal ligation Family History Family History Father Chronic mental illness Mother Chronic mental illness Maternal Grandfather Renal cell cancer Social History Social History Housing: House Alcohol intake: never Patient Tobacco Use Status: Never used Tobacco Tobacco use type: Cigarette Smoked in Last 30 Days: No e-Cigarette/Vaping Use: Never Used Second Hand Smoke Exposure: No Use of substances other than those prescribed or required for medical reasons: No Advance Directives: No Advance Directives Information Provided: Yes service: No Current occupational status: employed Cognitive needs: No Hearing needs: No Vision needs: Yes (Glasses) Physical Exam ED Exam Exam: Appearance: Alert. Oriented X3. appears uncomfortable, sitting in the chair Head: normocephalic, atraumatic. Eyes: normal external inspection ENT: normal external inspection Neck: Normal inspection. Neck supple. CVS: Normal heart rate and rhythm. Pulses normal. Respiratory: No respiratory distress. Breath sounds normal. Abdomen: Obese, Soft and nontender. negative Beckford sign. Normal active+BS x4. positive CVA tenderness on the right side Skin: Skin warm and dry. Normal skin color. Normal skin turgor. No rashes. Extremities: No lower extremity edema. Neuro/psych: Oriented X 3. grossly normal, nonfocal, Normal speech and cognition. Vital Signs: Vital Signs - 24 hr 05/28/25 12:19 Temperature 97.0 F Pulse Rate 67 Respiratory Rate 20 Blood Pressure 140/104 H Pulse Oximetry 99 Oxygen Delivery Method Room Air BMI result Body Mass Index 44.9 Course Course Course Narrative: This is an RME: Additional HPI, ROS, PE not included below will be deferred to primary provider. RME assessment and note performed by: Steffi Murray PA-C This is a [id number] who presents to the ER with a complaint of left sided back pain. She denies any recent trauma, injury, heavy lifting or falls. She states that she has a history of kidney stones, and states that her symptoms feel somewhat similar. She denies any urinary symptoms. Pain is worse with movement. She does have tenderness palpation along the right thoracic musculature, as well as slightly overlying the right CVA region. Plan: Labs, UA, ultrasound, further ER evaluation needed. Medications Administered Discontinued Medications Generic Name Dose Route Start Last Admin Trade Name Freq PRN Reason Stop Dose Admin Ketorolac Tromethamine 30 mg 05/28/25 13:51 05/28/25 14:05 Ketorolac Tromethamine 30 Mg/Ml Vial IM 05/28/25 13:52 30 mg ONCE ONE Administration Medical Decision Making Medical Decision Making [facility] Narrative: 45-year-old female with history of kidney stones requiring lithotripsy in the past presents to the ER for evaluation of right-sided flank pain for the last 3 days. Pain is colicky, severe in nature and similar to prior kidney stone pain. No urinary symptoms. She is hypertensive 140/100 on arrival with no fevers. She reports 8/10 pain in the right flank. Abdominal exam is unremarkable. Lab work is reassuring with no leukocytosis, no anemia. Renal function is normal. Urinalysis without infection. There is a small amount of blood in the UA. Her renal ultrasound does not show any evidence of hydronephrosis or kidney stones within the kidney itself. Given her symptoms, microscopic hematuria it is likely that she has a ureteral stone more distal in the ureter. It is reassuring that it is not obstructing and causing hydronephrosis. She was given IM Toradol with some improvement. At this time results and liekly diagnosis were discussed with the patient along with treatment plan. she states she has oxycodone pain medication at home and she does not like the way it makes her feel. Will plan to start her on Flomax and naproxen b.i.d.. Will encouraged her to follow-up with her urologist. We discussed return precautions. Stable for discharge home. Differential Diagnosis Differential Diagnoses: The differential diagnosis associated with the presentation includes ureteral stone, renal colic, UTI, gallstones, biliary colic, musculoskeletal pain Admission/Observation Consideration of admission/observation: Escalation of care including admission/observation considered Lab Data MDM Lab Attestation statement: I reviewed the patient's lab results. See above 05/28/25 13:40 05/28/25 13:40 Labs: Lab Results 05/28/25 Range/Units 13:40 WBC 8.7 (4.8-10.8) X10*3/uL RBC 4.52 (4.20-5.50) X10*6/uL Hgb 12.2 (12.0-16.0) g/dl Hct 38.0 (37.0-47.0) % MCV 84.1 (80.0-98.0) fL MCH 27.0 (27.0-33.0) pg MCHC 32.1 (31.0-35.0) g/dl RDW 14.4 (11.0-16.0) % Plt Count 309 (160-400) X10*3/uL MPV 9.4 (9.4-12.3) fL Immature Gran % (Auto) 0.2 (0.0-0.4) % Neut % (Auto) 65.8 (45-73) % Lymph % (Auto) 22.2 (20-40) % Reagan % (Auto) 6.5 (2-11) % Eos % (Auto) 4.8 H (0-4) % Baso % (Auto) 0.5 (0-2) % Lymph # (Auto) 1.9 (1.2-4.9) X10*3/uL Reagan # (Auto) 0.6 (0.1-1.2) X10*3/uL Eos # (Auto) 0.4 (0.0-0.4) X10*3/uL Baso # (Auto) 0.0 (0.0-0.2) X10*3/uL Abs Immat Gran (auto) 0.02 (0.00-0.03) X10*3/uL Absolute Neuts (auto) 5.7 (2.0-8.3) x10*3/uL Absolute Nucleated RBC 0.000 (0.0-0.012) X10*3/uL Nucleated RBC % (auto) 0.0 (0.0-0.2) /100WBC Sodium 142 (135-145) mmol/L Potassium 3.9 (3.3-5.1) mmol/L Chloride 109 H (96-108) mmol/L Carbon Dioxide 27 (22-29) mmol/L Anion Gap 10 L (12-20) BUN 18 H (9-16) mg/dL Creatinine 0.74 (0.5-1.4) mg/dL Estim Creat Clear Calc 114.9 Estimated GFR > 60 Random Glucose 91 (60-115) mg/dL Calcium 9.0 (8.4-10.2) mg/dL Total Bilirubin 0.4 (0.0-1.0) mg/dL Direct Bilirubin 0.2 (0.0-0.5) mg/dL AST 19 (5-31) U/L ALT 16 (0-31) U/L Alkaline Phosphatase 102 (39-117) U/L Total Protein 7.6 (6.5-8.0) g/dL Albumin 4.3 (3.5-5.0) g/dL Beta HCG, Quant < 2 mIU/mL Urine Color Yellow Urine Appearance Cloudy Urine pH 5.5 (5.0-9.0) Ur Specific Dorris >= 1.030 H (1.005-1.025) Urine Protein Trace (Neg-Trace) mg/dL Urine Glucose (UA) Negative (Negative) mg/dL Urine Ketones Trace (Negative) mg/dL Urine Blood Small (1+) H (Negative) Urine Nitrite Negative (Negative) Ur Leukocyte Esterase Negative (Negative) Urine RBC 0-2 (0-2) /HPF Urine WBC 0-5 (0-5) /HPF Ur Squamous Epith Cells 0-2 (0-2) /HPF Calcium Oxalate Crystal Present Urine Bacteria None Seen (None Seen) Hyaline Casts 0-2 (0-2) /LPF Independent Interpretation I performed an independent interpretation of an: Ultrasound Interpretation: no appreciated hydronephrosis or visible kidney stone Radiology Impression Discussion of test interpretation with radiology: I have reviewed the radiologist's reading. External Record Review External record reviewed: Outpatient record and Prior outpatient labs Prescription Management I considered prescription management with: Pain Medication and Antibiotic Critical Care Time Critical Care Time Critical Care Time: No Discharge Plan Discharge Clinical Impression: Renal colic on right side Patient Disposition: Home, Self-Care Instructions: Renal Colic (ED) Additional Instructions: Your ultrasound did not show any swelling or stones in your kidney You most likely have a small kidney stone down in the ureter (tube that draine urine from kidney to the bladder) and it is causing severe pain You most likely will pass the stone on your own Increase you fluid intake take the prescribed naproxen every 12 hours to help with pain and swelling in that ureter, to increase chance of passing the stone take the flomax once per day until resolved follow up with urology If you develop new or worsening symptoms call 911 or come back to the ER for further evaluation. Prescriptions: New naproxen 500 mg tablet,delayed release (DR/EC) 500 mg PO BID Qty: 20 0RF tamsulosin [Flomax] 0.4 mg capsule 0.4 mg PO DAILY Qty: 30 0RF No Action hydrocortisone-acetic acid 1-2 % drops 4 drp otic (ear) left Q6H Qty: 10 2RF Rx Instructions: apply to (cotton) wick; replace wick every 24 hours Pulmicort Flexhaler 180 mcg/actuation aerosol powdr breath activated 2 inh inhalation BID 30 Days Qty: 1 3RF ibuprofen 600 mg tablet 600 mg PO Q8H PRN (Reason: pain) Qty: 30 0RF cetirizine [Zyrtec] 10 mg tablet 10 mg PO DAILY albuterol sulfate [Ventolin HFA] 90 mcg/actuation HFA aerosol inhaler 2 puff inhalation Q6H PRN (Reason: shortness of breath or wheezing) Qty: 8.5 0RF Referrals: [facility] [Provider Group, Urology] Referral Note: kidney stone, renal colic, hx requiring lithotripsy in the past Clinical Impression: Renal colic on right side Po,Iesha Landon MD [Primary Care Provider, Internal Medicine] Stand Alone Forms: Work/School Release Print Language: Urdu
[2025-05-28 13:45] LABS: MANUAL DIFF FLAG NO
[2025-05-28 13:46] LABS: Hematocrit 38.0 % (37.0-47.0); Hemoglobin 12.2 g/dl (12.0-16.0); Imm Gran Abs Auto 0.02 X10*3/uL (0.00-0.03); Imm Gran Pct Auto 0.2 % (0.0-0.4); Lymphocytes Absolute Auto 1.9 X10*3/uL (1.2-4.9); Mean Corpuscular HGB Conc 32.1 g/dl (31.0-35.0); Mean Corpuscular Hemoglobin 27.0 pg (27.0-33.0); Mean Corpuscular Volume 84.1 fL (80.0-98.0); NRBC Abs Auto 0.000 X10*3/uL (0.0-0.012); NRBC Pct Auto 0.0 /100WBC (0.0-0.2); Platelet Count 309 X10*3/uL (160-400); Red Blood Count 4.52 X10*6/uL (4.20-5.50); White Blood Count 8.7 X10*3/uL (4.8-10.8)
[2025-05-28 13:48] LABS: Appearance Urine Cloudy; Glucose Urine UA Negative (Negative); PH 5.5 (5.0-9.0); Specific Gravity - Urine >= 1.030 (1.005-1.025); UMIC TRIGGER UACC YES
[2025-05-28 14:00] LABS: Alanine Aminotransferase 16 U/L (0-31); Albumin Level 4.3 g/dL (3.5-5.0); Alkaline Phosphatase 102 U/L (39-117); Anion Gap 10 (12-20); Aspartate Amino Transferase 19 U/L (5-31); Blood Urea Nitrogen 18 mg/dL (9-16); Calcium 9.0 mg/dL (8.4-10.2); Carbon Dioxide 27 mmol/L (22-29); Chloride 109 mmol/L (96-108); Creatinine Clr Calc Pharmacy 114.9; Estimated Glomerular Filt Rate > 60; Potassium 3.9 mmol/L (3.3-5.1); Sodium 142 mmol/L (135-145); Total Protein 7.6 g/dL (6.5-8.0)
[2025-05-28 15:09] VITALS: BP 122/69; PULSE 68; RESP 16; TEMP 36.6; O2SAT 100
== END 2025-05-28 15:09 | disposition home or self-care (01) ==
PROVIDERS: Physician Assistant; Physician Assistant Medical; Emergency Provider Emergency Medicine; PCP Internal Medicine
DX: N23 Unspecified renal colic (principal); Z87.442 Personal history of urinary calculi; J45.909 Unspecified asthma, uncomplicated; K21.9 Gastro-esophageal reflux disease without esophagitis
CPT/HCPCS: 36415; 76775; 80048; 80076; 81001; 84702; 85025; 96372; 99284; J1885

== ENCOUNTER → 2025-05-28 12:27 | Outpatient (BNV) | payer OTHER, SELFPAY | PROVIDERS: Emergency Provider Emergency Medicine; PCP Internal Medicine; Visit Provider Radiology Diagnostic Radiology | DX: R10.A1 Flank pain, right side (principal) | CPT/HCPCS: 76775 ==